=== PATIENT | male | born 1945 | race Caucasian/White ===

== ENCOUNTER 2017-06-21 19:57 | Observation (INO) | payer MEDICARE ==
[~2017-06-21] VITALS: Ht 177.8 cm; Wt 66.0 kg
[2017-06-21 20:02] VITALS: BP 159/76; PULSE 111; RESP 22; TEMP 97.9; O2SAT 95
--- NOTE | 2017-06-21 20:20 | PD ---
HPI Chief Complaint: Pain: Acute or Chronic Time Seen by Provider: 20:11 Travel History International Travel<30 days: No Contact w/Intl Traveler<30days: No Traveled to known affect area: No History of Present Illness HPI This 72-year-old male is complaining of pain in the posterior thoracic region. He is also having some pain in the sternal area. Pain started several hours ago and has been fairly constant. It started while he was driving here from [facility]. He has a history of asthma. . He does not smoke. He has been on prednisone in the past. He has no numbness tingling or paresthesias. He does have a history of irregular heartbeat. He does see a delinquency prevention social worker in [place] and had a lung biopsy several years ago. He has never smoked [facility] Social History Tobacco Use: No Allergies-Medications (Allergen,Severity, Reaction): Coded Allergies: No Known Allergies (Verified Allergy, Unknown, 06/21/17) Reported Meds & Prescriptions Reported Meds & Active Scripts Active Reported Latanoprost Opth Drops (Latanoprost) 0.005% Drops 1 Drop EACH EYE HS Refrigerate until opened. Fludrocortisone (Fludrocortisone Acetate) 0.1 Mg Tab 0.1 Mg PO DAILY Rabeprazole (Rabeprazole Sodium) 20 Mg Tab 20 Mg PO DAILY Montelukast (Montelukast Sodium) 10 Mg Tab 10 Mg PO HS Propafenone (Propafenone HCl) 150 Mg Tab 225 Mg PO Q8HR Theophylline ER 12 HR (Theophylline) 200 Mg Tab 200 Mg PO Q12H Ecotrin Low Strength (Aspirin) 81 Mg Tabdr 81 Mg PO DAILY Prednisone 10 Mg Tab 15 Mg PO DAILY Tamsulosin (Tamsulosin HCl) 0.4 Mg Cap 0.4 Mg PO HS Os-Marko Calcium + D3 (Calcium Carbonate-Cholecalciferol) 500-200 Mg-Unit Tab 1 Tab PO BID Dulera 120 Act Inh (Mometasone-Formoterol 120 Act Inh) 200-5 Mcg/Act Inh 2 Puff INH BID Asmanex 120 Act Twisthaler (Mometasone 120 Act Inh) 220 Mcg/Act Inh 1 Puff INH BID Review of Systems General / Constitutional: No: Fever, Chills HENT: No: Headaches, Vertigo Cardiovascular: Positive: Chest Pain or Discomfort, No: Palpitations Respiratory: Positive: Shortness of Breath, Wheezing, No: Cough Gastrointestinal: No: Vomiting, Diarrhea Genitourinary: No: Urgency, Frequency Musculoskeletal: No: Myalgias, Arthralgias Skin: No Rash, No Itching Neurologic: No: Weakness, Dizziness Psychiatric: No: Anxiety Hematologic/Lymphatic: No: Easy Bruising Physical Exam Narrative GENERAL: Thin male SKIN: Focused skin assessment warm/dry. HEAD: Atraumatic. Normocephalic. EYES: Pupils equal and round. No scleral icterus. No injection or drainage. ENT: No nasal bleeding or discharge. Mucous membranes pink and moist. NECK: Trachea midline. No JVD. CARDIOVASCULAR: Regular rate and rhythm. No murmur appreciated. RESPIRATORY: Diminished breath sounds bilaterally. Occasional wheeze GASTROINTESTINAL: Abdomen soft, non-tender, nondistended. Hepatic and splenic margins not palpable. MUSCULOSKELETAL: No obvious deformities. No clubbing. No cyanosis. No edema. NEUROLOGICAL: Awake and alert. No obvious cranial nerve deficits. Motor grossly within normal limits. Normal speech. Site of pain is the midportion of the thoracic spine. There is no focal tenderness. PSYCHIATRIC: Appropriate mood and affect; insight and judgment normal. Data Data Last Documented VS Vital Signs Date Time Temp Pulse Resp B/P Pulse Ox O2 Delivery O2 Flow Rate FiO2 06/21/17 22:34 95 18 122/75 96 Nasal Cannula 2 06/21/17 20:02 97.9 Orders Electrocardiogram (06/21/17 20:18) Complete Blood Count With Diff (06/21/17 20:18) Comprehensive Metabolic Panel (06/21/17 20:18) Troponin I (06/21/17 20:18) B-Type Natriuretic Peptide (06/21/17 20:18) Prothrombin Time / Inr (Pt) (06/21/17 20:18) Act Partial Throm Time (Ptt) (06/21/17 20:18) Urinalysis - C+S If Indicated (06/21/17 20:18) Chest, Single Ap (06/21/17 20:18) Ondansetron Inj (Zofran Inj) (06/21/17 20:30) Morphine Inj (Morphine Inj) (06/21/17 20:30) Ct Pulmonary Angiogram (06/21/17 20:49) Urine Culture (06/21/17 20:45) Iohexol 350 Inj (Omnipaque 350 Inj) (06/21/17 21:16) Admit Order (Ed Use Only) (06/21/17 21:41) Admit Order (Ed Use Only) (06/21/17 21:45) Activity Bed Rest With Brp (06/21/17 21:47) Vital Signs (Adult) Q4H (06/21/17 21:47) Cardiac Rhythm .As Directed (06/21/17 21:47) Notify Dr: Other .PRN (06/21/17 21:47) Notify Dr. Parameters (06/21/17 21:47) Resp Oxygen Nasal Cannula (06/21/17 ) Diet Npo (06/22/17 Breakfast) ^ Obtain (06/21/17 21:47) Sodium Chlor 0.9% 1000 Ml Inj (Ns 1000 M (06/21/17 21:47) Sodium Chloride 0.9% Flush (Ns Flush) (06/21/17 22:00) Sodium Chloride 0.9% Flush (Ns Flush) (06/22/17 09:00) Acetaminophen (Tylenol) (06/21/17 22:00) Morphine Inj (Morphine Inj) (06/21/17 22:00) Ondansetron Inj (Zofran Inj) (06/21/17 22:00) Aspirin (Aspirin) (06/22/17 09:00) Dressing Machine Operator / Telemetry RERE.Q8H (06/21/17 21:47) Montelukast (Singulair) (06/22/17 21:00) Prednisone (Deltasone) (06/22/17 09:00) Propafenone (Rythmol) (06/21/17 22:00) Acetaminophen (Tylenol) (06/21/17 22:00) Troponin I (06/21/17 23:24) Troponin I (06/22/17 02:24) Electrocardiogram (06/21/17 23:24) Electrocardiogram (06/22/17 02:24) Ckmb (Isoenzyme) Profile (06/22/17 02:24) Ckmb (Isoenzyme) Profile (06/21/17 23:24) Labs Laboratory Tests Test 06/21/17 06/21/17 20:24 20:45 White Blood Count 11.0 TH/MM3 Red Blood Count 4.62 MIL/MM3 Hemoglobin 13.8 GM/DL Hematocrit 40.7 % Mean Corpuscular Volume 88.0 FL Mean Corpuscular Hemoglobin 29.9 PG Mean Corpuscular Hemoglobin 34.0 % Concent Red Cell Distribution Width 14.1 % Platelet Count 351 TH/MM3 Mean Platelet Volume 8.1 FL Neutrophils (%) (Auto) 82.0 % Lymphocytes (%) (Auto) 8.3 % Monocytes (%) (Auto) 9.4 % Eosinophils (%) (Auto) 0.1 % Basophils (%) (Auto) 0.2 % Neutrophils # (Auto) 9.1 TH/MM3 Lymphocytes # (Auto) 0.9 TH/MM3 Monocytes # (Auto) 1.0 TH/MM3 Eosinophils # (Auto) 0.0 TH/MM3 Basophils # (Auto) 0.0 TH/MM3 CBC Comment AUTO DIFF Differential Total Cells 100 Counted Neutrophils % (Manual) 85 % Lymphocytes % 5 % Monocytes % 9 % Neutrophils # (Manual) 9.5 TH/MM3 Metamyelocytes 1 % Differential Comment FINAL DIFF MANUAL Platelet Estimate NORMAL Platelet Morphology Comment NORMAL Red Cell Morphology Comment NORMAL Prothrombin Time 10.8 SEC Prothromb Time International 1.0 RATIO Ratio Activated Partial 24.4 SEC Thromboplast Time Sodium Level 138 MEQ/L Potassium Level 4.0 MEQ/L Chloride Level 102 MEQ/L Carbon Dioxide Level 26.6 MEQ/L Anion Gap 9 MEQ/L Blood Urea Nitrogen 12 MG/DL Creatinine 1.00 MG/DL Estimat Glomerular Filtration 74 ML/MIN Rate Random Glucose 86 MG/DL Calcium Level 8.9 MG/DL Total Bilirubin 0.5 MG/DL Aspartate Amino Transf 12 U/L (AST/SGOT) Alanine Aminotransferase 11 U/L (ALT/SGPT) Alkaline Phosphatase 91 U/L Troponin I LESS THAN 0.02 NG/ML B-Type Natriuretic Peptide 31 PG/ML Total Protein 6.8 GM/DL Albumin 3.3 GM/DL Urine Color YELLOW Urine Turbidity CLOUDY Urine pH 7.0 Urine Specific [place] 1.020 Urine Protein NEG mg/dL Urine Glucose (UA) NEG mg/dL Urine Ketones 15 mg/dL Urine Occult Blood TRACE Urine Nitrite NEG Urine Bilirubin NEG Urine Leukocyte Esterase SMALL Urine RBC 0-3 /hpf Urine WBC 9-14 /hpf Urine Squamous Epithelial 0-5 /hpf Cells Urine Bacteria MANY /hpf Microscopic Urinalysis Comment CULTURE INDICATED MDM Medical Decision Making Medical Screen Exam Complete: Yes Emergency Medical Condition: Yes Medical Record Reviewed: Yes Differential Diagnosis Differential includes coronary artery disease, musculoskeletal pain, PE Narrative Course EKG shows sinus rhythm. Troponin is normal. He takes aspirin daily. He was given morphine for pain. Results. I have done a CT scan of the chest. There is no evidence of pulmonary embolus. He is noted to have a lesion in the lung for which malignancy cannot be ruled out. I think the patient needs admission to chest pain center for serial EKG and enzymes as he did have this fairly sudden precordial and back pain. Questionable malignancy can be addressed by his delinquency prevention social worker in [place] Diagnosis Primary Impression: Chest pain Admitting Information Admitting Physician Requests: Observation Georges Oconnor MD Jun 21, 2017 20:20
[2017-06-21] MEDS ORDERED: ONDANSETRON HCL 4 MG/2 ML VIAL IV PUSH ONE (20:30)
[2017-06-21] MEDS ORDERED: MORPHINE SULFATE 4 MG/ML INJ IV PUSH ONE (20:30)
[2017-06-21 20:32] LABS: AUTOMATED NEUTROPHIL # 9.1 TH/MM3 (1.8-7.7); BASOPHIL % 0.2 % (0.0-2.0); EOSINOPHIL % 0.1 % (0.0-4.0); HEMATOCRIT 40.7 % (39.0-51.0); LYMPH % 8.3 % (9.0-44.0); LYMPHOCYTE # 0.9 TH/MM3 (1.0-4.8); MEAN CORPUSCULAR HEMOGLOBIN 29.9 PG (27.0-34.0); MONO % 9.4 % (0.0-8.0); PLATELET COUNT 351 TH/MM3 (150-450); RED BLOOD COUNT 4.62 MIL/MM3 (4.50-5.90); RED CELL DISTRIBUTION WIDTH 14.1 % (11.6-17.2)
[2017-06-21] MEDS ORDERED: FLUD.1 PO (20:35)
[2017-06-21] MEDS ORDERED: ASPI-147 PO (20:35)
[2017-06-21] MEDS ORDERED: PROP150T PO (20:35)
[2017-06-21] MEDS ORDERED: MONT10TA4 PO (20:35)
[2017-06-21] MEDS ORDERED: DULE200A INH (20:35)
[2017-06-21] MEDS ORDERED: THEO200T9 PO (20:35)
[2017-06-21] MEDS ORDERED: OS-CTAB3 PO (20:35)
[2017-06-21] MEDS ORDERED: PRED10 PO (20:35)
[2017-06-21] MEDS ORDERED: LATA0.002 EACH EYE (20:35)
[2017-06-21] MEDS ORDERED: ASMA220A INH (20:35)
[2017-06-21] MEDS ORDERED: TAMS0.4C4 PO (20:35)
[2017-06-21] MEDS ORDERED: RABE1TAB PO (20:35)
[2017-06-21 20:39] LABS: HEMO FLAGS AUTO DIFF
[2017-06-21 20:41] VITALS: BP 140/74; PULSE 95; RESP 18; O2SAT 98
[2017-06-21 20:41] LABS: CHLORIDE 102 MEQ/L (98-107); SODIUM (NA) 138 MEQ/L (136-145)
[2017-06-21 20:45] LABS: ANION GAP 9 MEQ/L (5-15); BICARBONATE 26.6 MEQ/L (21.0-32.0); BLOOD UREA NITROGEN 12 MG/DL (7-18)
[2017-06-21 20:47] LABS: APTT (PATIENT) 24.4 SEC (24.3-30.1); PROTHROMBIN TIME - PATIENT 10.8 SEC (9.8-11.6)
[2017-06-21 20:48] LABS: ALT (GPT) 11 U/L (12-78); AST (GOT) 12 U/L (15-37); GLOMERULAR FILTRATION RATE 74 ML/MIN (>89)
[2017-06-21 20:49] LABS: TOTAL BILIRUBIN ADULT 0.5 MG/DL (0.2-1.0)
[2017-06-21 20:51] LABS: ALKALINE PHOSPHATASE 91 U/L (45-117)
[2017-06-21 20:57] LABS: BLOOD, URINE TRACE (NEG); GLUCOSE,URINE NEG (NEG); KETONE, URINE 15 mg/dL (NEG); NITRITE,URINE NEG (NEG)
[2017-06-21 21:02] LABS: URINE COLOR YELLOW (YELLW/STRAW)
[2017-06-21 21:03] LABS: BACTERIA, URINE MANY /hpf; COMMENT (UR) CULTURE INDICATED; CULTURE IF INDICATED CULTURE INDICATED; RBC, URINE 0-3 /hpf (0-3); SQUAMOUS EPITHELIAL CELL URINE 0-5 /hpf (0-5)
--- NOTE | 2017-06-21 21:07 | RADRPT ---
EXAM DATE/TIME: 06/21/2017 20:23 [facility] COMPARISON: No previous studies available for comparison. INDICATIONS : Chest pain. MEDICAL HISTORY : None. SURGICAL HISTORY : None. ENCOUNTER: Initial ACUITY: 1 day PAIN SCORE: 7/10 LOCATION: Bilateral chest FINDINGS: No infiltrate, effusion or pneumothorax. Lung bases appear mildly scarred or atelectatic. Heart size normal. There are old right rib fractures. Humeral head abuts the undersurface of the acromion on the right, typical of a chronic full-thickness rotator cuff tear. CONCLUSION: 1. Trace bibasilar atelectasis and/or scarring. No infiltrates seen. 2. Old right rib fractures and suspected chronic full-thickness right rotator cuff tear. Jose Lockhart MD on June 21, 2017 at 21:04 Board Certified Radiologist. This report was verified electronically.
[2017-06-21] MEDS ORDERED: IOHEXOL 350 MG/ML 10 ML VIAL (for RAD DIAG) IV ONE (21:16)
--- NOTE | 2017-06-21 21:32 | RADRPT ---
EXAM DATE/TIME: 06/21/2017 21:04 [facility] COMPARISON: No previous studies available for comparison. INDICATIONS : Left side chest and back pain today. IV CONTRAST: 73 cc Omnipaque 350 (iohexol) IV RADIATION DOSE: 9.16 CTDIvol (mGy) MEDICAL HISTORY : Cardiovascular disease. SURGICAL HISTORY : None. ENCOUNTER: Initial ACUITY: 1 day PAIN SCALE: 5/10 LOCATION: Left chest TECHNIQUE: Volumetric scanning of the chest was performed using a pulmonary embolism protocol MIP images were re constructed. Using automated exposure control and adjustment of the mA and/or kV according to patien t size, radiation dose was kept as low as reasonably achievable to obtain optimal diagnostic quality images. DICOM format image data is available electronically for review and comparison. Follow-up recommendations for detected pulmonary nodules are based at a minimum on nodule size and pa tient risk factors according to Fleischner Society Guidelines. FINDINGS: PULMONARY ARTERIES: No filling defects are seen in the pulmonary arteries through the segmental level. LUNGS: There is mild bibasilar atelectasis. Areas of mildly masslike scarring or atelectasis/infiltrate seen in the right upper lobe, one posteriorly measuring approximately 16 x 43 mm in size and another more anteriorly and apically, 11 x 25 mm in size. Malignancy not excludable, especially the larger area. PLEURAE: There is no pleural thickening or pleural effusion. MEDIASTINUM: No lymphadenopathy. Heart size within normal limits. There is left and right sided coronary artery ca lcification, especially left main and proximal left anterior descending. No pericardial effusion. CT appearance of the thoracic aorta within normal limits. MUSCULOSKELETAL: Within normal limits for patient age. MISCELLANEOUS: The visualized upper abdominal organs demonstrate no acute abnormality. CONCLUSION: 1. No pulmonary embolus. 2. Masslike opacity posteriorly of the right upper lobe measuring 16 x 43 mm in size and malignancy i s not excludable. Outpatient PET CT recommended. 3. An additional mildly masslike opacity of the right upper lobe seen at the apex is most likely scar ring. 4. Fairly typical appearing atelectasis and/or scarring of the bases. 5. Coronary artery calcification. Jose Lockhart MD on June 21, 2017 at 21:26 Board Certified Radiologist. This report was verified electronically.
[2017-06-21 21:45] VITALS: BP 117/74; PULSE 95; RESP 17; O2SAT 96
[2017-06-21 21:46] LABS: METAMYELOCYTES 1 % (0-1); NEUTROPHIL # MANUAL DIFF 9.5 TH/MM3 (1.8-7.7); PLATELET ESTIMATE SMEAR NORMAL (NORMAL); PLATELET MORPHOLOGY NORMAL (NORMAL); POLYS (SEG NEUTROPHILS) 85 % (16-70); SCAN/DIFF FINAL DIFF MANUAL; WBC DIFF SAMPLE 100
[2017-06-21] MEDS ORDERED: MORPHINE SULFATE 4 MG/ML INJ IV PRN (22:00)
[2017-06-21] MEDS ORDERED: ACETAMINOPHEN 325 MG TAB PO PRN (22:00)
[2017-06-21] MEDS ORDERED: ONDANSETRON HCL 4 MG/2 ML VIAL IV PRN (22:00)
[2017-06-21] MEDS ORDERED: ACETAMINOPHEN 500 MG CPLT PO PRN (22:00)
[2017-06-21] MEDS ORDERED: SODIUM CHLORIDE 0.9% FLUSH 10 ML FLUSH IV FLUSH PRN (22:00)
[2017-06-21] MEDS: PROPAFENONE HCL 150 MG TAB PO SCH ×2 (22:23→22:25)
[2017-06-21] MEDS: SODIUM CHLOR 0.9% 1000 ML INJ 1,000 ML IV SCH (22:23)
[2017-06-21 22:34] VITALS: BP 122/75; PULSE 95; RESP 18; O2SAT 96
[2017-06-21] MEDS ORDERED: MONTELUKAST SODIUM 10 MG TAB PO SCH (23:15)
[2017-06-21] MEDS ORDERED: TAMSULOSIN HCL 0.4 MG CAP PO SCH (23:15)
[2017-06-21] MEDS ORDERED: LATANOPROST 0.005% OPHT SOLN 2.5 ML BTL EACH EYE SCH (23:15)
[2017-06-21] MEDS ORDERED: PILL SPLITTER OTHER PRN (23:30)
[2017-06-21] MEDS ORDERED: PROPAFENONE HCL 150 MG TAB PO SCH (23:30)
[2017-06-21] MEDS: MOMETASONE INH SCH (23:51)
[2017-06-21] MEDS: DULERA INH SCH (23:52)
[2017-06-21] MEDS: CALCIUM/VITAMIN D 250 MG/125 U TAB PO SCH (23:53)
[2017-06-21 23:55] VITALS: BP 115/69; PULSE 95; RESP 18; TEMP 98.5; O2SAT 98
[2017-06-22 00:36] LABS: CREATINE KINASE 82 U/L (39-308)
[2017-06-22 01:24] VITALS: PULSE 85
[2017-06-22 01:50] VITALS: BP 152/86; PULSE 73; RESP 16; TEMP 98.1; O2SAT 91
[2017-06-22 02:20] VITALS: O2SAT 95
[2017-06-22 03:14] LABS: CREATINE KINASE 17 U/L (39-308)
[2017-06-22 04:44] VITALS: BP 110/71; PULSE 88; RESP 18; TEMP 98.4; O2SAT 93
[2017-06-22] MEDS: PROPAFENONE HCL 150 MG TAB PO SCH ×2 (05:35→14:00)
[2017-06-22 08:00] VITALS: BP 113/70; PULSE 99; RESP 18; TEMP 98.6; O2SAT 92; O2SAT 93
[2017-06-22] MEDS: SODIUM CHLOR 0.9% 1000 ML INJ 1,000 ML IV SCH (09:00)
[2017-06-22] MEDS ORDERED: predniSONE 10 MG TAB PO SCH (09:00)
[2017-06-22] MEDS ORDERED: ASPIRIN 325 MG TAB PO SCH (09:00)
[2017-06-22] MEDS: CALCIUM/VITAMIN D 250 MG/125 U TAB PO SCH (09:00)
[2017-06-22] MEDS ORDERED: SODIUM CHLORIDE 0.9% FLUSH 10 ML FLUSH IV FLUSH SCH (09:00)
[2017-06-22] MEDS: DULERA INH SCH (09:01)
[2017-06-22] MEDS: MOMETASONE INH SCH (09:01)
--- NOTE | 2017-06-22 09:26 | HHI.HP ---
[facility] Primary [facility] Phys[facility] Non-Staff Admission Diagnosis CHEST PAIN Diagnoses: (1) Chest pain Diagnosis: Principal (2) Lung mass Diagnosis: Secondary (3) Asthma Diagnosis: Secondary Chief Complaint: Chest pain Travel History International Travel<30 Days: No Contact w/Intl Traveler <30 Da: No Traveled to Known Affected Are: No History of Present Illness Written by Balwinder Macias, acting as scribe for Dr. Andre on 06/22/17 at 09: 19. 72-year-old male with known history of irregular heartbeat, asthma, benign prostatic hypertrophy who presented to the hospital because of chest discomfort. Patient does live in [facility] [place] and he was driving down here in order to visit his son for the weekend. [place] down yesterday morning he developed a midsternal chest discomfort that he states was intermittent and had only a couple of times during the drive which was an 8/10 on a pain scale lasting for approximately 1 minute at a time. The pain did radiate into his back. He denied any nausea, vomiting, diaphoresis, shortness of breath, dyspnea , lightheadedness, dizziness. Patient came to emergency department for evaluation and had cardiac enzymes performed which were unremarkable. CT scan of the chest was done which did not indicate any pulmonary emboli, however did indicate a 1.6 x 4.3 cm right upper lobe mass and malignancy is not excluded. ER physician did speak with the patient who wants to have the mass workup done by his administration assistant up in [place]. This was confirmed when speaking with the patient. Patient indicates that he has had lung biopsies done before, however he does not know if they were done at this particular mass. The patient does have a wood window and door craftsman up in [place] which monitors his irregular heart rate. Patient states it just a EKG done on Saturday. His last nuclear stress test was done years ago. At the present time the patient is asymptomatic. It was recommended by the ER physician that the patient be observed in the chest pain center for further evaluation. Review of Systems Cardiovascular: COMPLAINS OF: Chest pain Except as stated in HPI: all other systems reviewed are Neg Past Family Social History Past Medical History Irregular heart rate Asthma Benign prostatic hypertrophy Past Surgical History Upper and lower endoscopies which were negative Lung biopsy Cataract surgery Reported Medications Reported Meds & Active Scripts Active Reported Latanoprost Opth Drops (Latanoprost) 0.005% Drops 1 Drop EACH EYE HS Refrigerate until opened. Fludrocortisone (Fludrocortisone Acetate) 0.1 Mg Tab 0.1 Mg PO DAILY Rabeprazole (Rabeprazole Sodium) 20 Mg Tab 20 Mg PO DAILY Montelukast (Montelukast Sodium) 10 Mg Tab 10 Mg PO HS Propafenone (Propafenone HCl) 150 Mg Tab 225 Mg PO Q8HR Theophylline ER 12 HR (Theophylline) 200 Mg Tab 200 Mg PO Q12H Ecotrin Low Strength (Aspirin) 81 Mg Tabdr 81 Mg PO DAILY Prednisone 10 Mg Tab 15 Mg PO DAILY Tamsulosin (Tamsulosin HCl) 0.4 Mg Cap 0.4 Mg PO HS Os-Marko Calcium + D3 (Calcium Carbonate-Cholecalciferol) 500-200 Mg-Unit Tab 1 Tab PO BID Dulera 120 Act Inh (Mometasone-Formoterol 120 Act Inh) 200-5 Mcg/Act Inh 2 Puff INH BID Asmanex 120 Act Twisthaler (Mometasone 120 Act Inh) 220 Mcg/Act Inh 1 Puff INH BID Allergies: Coded Allergies: No Known Allergies (Verified Allergy, Unknown, 06/21/17) Family History Reviewed is significant for mother at age 68 from heart disease, father at 71 from cancer, however he does not know which kind. Social History Patient denies any tobacco, alcohol or illicit drugs Physical Exam Vital Signs Vital Signs Date Time Temp Pulse Resp B/P Pulse Ox O2 Delivery O2 Flow Rate FiO2 06/22/17 08:00 93 21 06/22/17 08:00 98.6 99 18 113/70 92 06/22/17 04:44 98.4 88 18 110/71 93 06/22/17 02:20 95 21 06/22/17 01:50 98.1 73 16 152/86 91 06/22/17 01:24 85 06/21/17 23:55 98.5 95 18 115/69 98 Nasal Cannula 06/21/17 22:34 95 18 122/75 96 Nasal Cannula 2 06/21/17 21:45 95 17 117/74 96 Nasal Cannula 2 06/21/17 20:41 95 18 140/74 98 Room Air 06/21/17 20:02 97.9 111 22 159/76 95 Physical Exam GENERAL: Well-developed, well-nourished, in no acute distress. alert and orientated HEENT: Head is normocephalic without any lesions or masses noted. Facial features are symmetric. Eyes: Pupils equal round reactive to light. Extraocular muscles are intact. Conjunctivae were clear. Oropharyngeal: Pharynx without any erythema edema. Tongue is midline without deviation. Buccal mucosa is moist without any masses or lesions NECK: Supple without any masses. Trachea midline no deviation. No JVD, no bruits are appreciated CARDIAC: Regular rhythm, regular rate. S1/S2 are heard. 1/6 ejection murmur, no gallops or rubs. LUNGS: Clear to auscultation bilaterally. No wheeze, rhonchi or rales. No use of accessory muscles on inspiration or expiration. ABDOMEN: Soft, nontender. Nondistended. Bowel sounds heard in all 4 quadrants. No organomegaly or masses. Negative rebound, negative guarding EXTREMITIES: No edema, pulses are equal bilaterally. No cyanosis or clubbing NEUROLOGY: Mood and affect appear appropriate. Cranial nerves II through XII grossly intact. Muscle strength 5/5 in upper and lower extremities bilaterally. Deep tendon reflexes are 2+ in upper and lower extremities bilaterally. Laboratory Laboratory Tests Test 06/21/17 06/21/17 06/22/17 06/22/17 20:24 20:45 00:05 02:40 White Blood Count 11.0 Red Blood Count 4.62 Hemoglobin 13.8 Hematocrit 40.7 Mean Corpuscular Volume 88.0 Mean Corpuscular Hemoglobin 29.9 Mean Corpuscular Hemoglobin 34.0 Concent Red Cell Distribution Width 14.1 Platelet Count 351 Mean Platelet Volume 8.1 Neutrophils (%) (Auto) 82.0 Lymphocytes (%) (Auto) 8.3 Monocytes (%) (Auto) 9.4 Eosinophils (%) (Auto) 0.1 Basophils (%) (Auto) 0.2 Neutrophils # (Auto) 9.1 Lymphocytes # (Auto) 0.9 Monocytes # (Auto) 1.0 Eosinophils # (Auto) 0.0 Basophils # (Auto) 0.0 CBC Comment AUTO DIFF Differential Total Cells 100 Counted Neutrophils % (Manual) 85 Lymphocytes % 5 Monocytes % 9 Neutrophils # (Manual) 9.5 Metamyelocytes 1 Differential Comment FINAL DIFF MANUAL Platelet Estimate NORMAL Platelet Morphology Comment NORMAL Red Cell Morphology Comment NORMAL Prothrombin Time 10.8 Prothromb Time International 1.0 Ratio Activated Partial 24.4 Thromboplast Time Sodium Level 138 Potassium Level 4.0 Chloride Level 102 Carbon Dioxide Level 26.6 Anion Gap 9 Blood Urea Nitrogen 12 Creatinine 1.00 Estimat Glomerular Filtration 74 Rate Random Glucose 86 Calcium Level 8.9 Total Bilirubin 0.5 Aspartate Amino Transf 12 (AST/SGOT) Alanine Aminotransferase 11 (ALT/SGPT) Alkaline Phosphatase 91 Troponin I LESS THAN 0.02 LESS THAN 0.02 LESS THAN 0.02 B-Type Natriuretic Peptide 31 Total Protein 6.8 Albumin 3.3 Urine Color YELLOW Urine Turbidity CLOUDY Urine pH 7.0 Urine Specific [place] 1.020 Urine Protein NEG Urine Glucose (UA) NEG Urine Ketones 15 Urine Occult Blood TRACE Urine Nitrite NEG Urine Bilirubin NEG Urine Leukocyte Esterase SMALL Urine RBC 0-3 Urine WBC 9-14 Urine Squamous Epithelial 0-5 Cells Urine Bacteria MANY Microscopic Urinalysis Comment CULTURE INDICATED Total Creatine Kinase 82 17 Date/Time Procedure Status Source Growth 06/21/17 20:45 Urine Culture Received Urine Clean Catch Pending Result Diagram: 06/21/17202306/21/17[address] Angiography 06/21/172048 Signed Impressions: Service Date/Time: Wednesday, June 21, 2017 21:04 - CONCLUSION: 1. No pulmonary embolus. 2. Masslike opacity posteriorly of the right upper lobe measuring 16 x 43 mm in size and malignancy is not excludable. Outpatient PET CT recommended. 3. An additional mildly masslike opacity of the right upper lobe seen at the apex is most likely scarring. 4. Fairly typical appearing atelectasis and/or scarring of the bases. 5. Coronary artery calcification. Jose Lockhart MD Chest X-Ray 06/21/172017 Signed Impressions: Service Date/Time: Wednesday, June 21, 2017 20:23 - CONCLUSION: 1. Trace bibasilar atelectasis and/or scarring. No infiltrates seen. 2. Old right rib fractures and suspected chronic full-thickness right rotator cuff tear. Jose Lockhart MD Assessment and Plan Assessment and Plan Chest pain, atypical Patient with increased risk factors to include age, family history of heart disease Patient had been ruled out for acute coronary event with serial cardiac enzymes which are negative, serial EKGs without any changes Pursue nuclear stress test rule out any underlying ischemia Patient continue on aspirin and nitroglycerin as needed Irregular heart rate, patient cannot remember exactly the name of his condition is Antiarrhythmic medication has been continued Asthma Home medications continued DVT prevention Low risk, early ambulation Discharge disposition Discharge home in stable condition if stress test is negative Activity: Ad joel. Diet: Healthy heart diet Medications per medication reconciliation Follow-up with primary medical doctor in one week, administration assistant and wood window and door craftsman when he returns back to [facility] [place], Medical Decision Making Impression and Plan This note was transcribed by josie macias. I, Dr. Lucero Andre personally performed the history, physical exam, and medical decision making; and confirmed the accuracy of the information in the transcribed note. Authenticated by Dr. Lucero Andre on 06/22/17 at 09:55. lung mass is known to the patient and he would not like any further workup here in the hospital. He would like to pursue further follow-up with his primary doctors in [facility] [place]. Balwinder Macias Jun 22, 2017 09:26 Lucero Andre MD Jun 22, 2017 09:56
[2017-06-22] MEDS ORDERED: REGADENOSON INJ 0.4 MG/5 ML SYR IV ONE (11:40)
[2017-06-22 12:00] VITALS: BP 108/76; PULSE 90; RESP 17; TEMP 98.2; O2SAT 93
--- NOTE | 2017-06-22 13:27 | RADRPT ---
EXAM DATE/TIME: 06/22/2017 11:40 [facility] COMPARISON: No previous studies available for comparison. INDICATIONS : Substernal chest pain. Angina. DOSE: 27.1 mCi Tc99m Myoview at stress. 8.8 mCi Tc99m Myoview at rest. 0.4 mg Lexiscan STRESS SYMPTOMS: None noted. EJECTION FRACTION: 52% MEDICAL HISTORY : Asthma. SURGICAL HISTORY : None. ENCOUNTER: Initial ACUITY: 1 day PAIN SCALE: 8/10 LOCATION: Substernal chest TECHNIQUE: The patient underwent pharmacologic stress with infusion of prescribed dose. Continuous ECG tracing was monitored during stress. Gated SPECT imaging was performed after stress and conventional SPECT i maging was performed at rest. The examination was performed on a SPECT/CT scanner, both attenuation and non-corrected datasets were reviewed. FINDINGS: DISTRIBUTION: The maximum perfused segment at stress is in the anterolateral wall. PERFUSION STUDY: The pattern of perfusion at stress is within normal limits. GATED STUDY: There is intact wall motion and thickening without hypokinetic or dyskinetic segments. CONCLUSION: 1. No reversible perfusion defects to suggest ischemia. 2. Ejection fraction slightly depressed at 52%. RISK CATEGORY: Intermediate (1-3% Annual Mortality Rate) Sean Brasher MD on June 22, 2017 at 13:23 Board Certified Radiologist. This report was verified electronically.
--- NOTE | 2017-06-22 13:30 | HHI.DCPOC ---
Discharge Care Plan Diagnosis: (1) Chest pain Goals to Promote Your Health * To prevent worsening of your condition and complications * To maintain your health at the optimal level Directions to Meet Your Goals Take your medications as prescribed Follow your dietary instruction Follow activity as directed Keep your appointments as scheduled Take your immunizations and boosters as scheduled If your symptoms worsen call your PCP, if no PCP go to Urgent Care Center or Emergency Room Smoking is Dangerous to Your Health. Avoid second hand smoke Call the 24-hour hour crisis hotline for domestic abuse at Balwinder Fields Jun 22, 2017 13:30
--- NOTE | 2017-06-22 15:42 | EKG ---
Date Performed: 06/21/2017 Time Performed: 21:56:06 PTAGE: 72 years EKG: BORDERLINE ATRIAL ABNORMALITY SMALL INFERIOR Q WAVES OF UNDETERMINED SIGNIFICANCE Since pre vious tracing, no significant change noted ABNORMAL ECG PREVIOUS TRACING : 06/21/2017 20.14 DOCTOR: Иван Solo Interpretating Date/Time 06/22/2017 15:42:19
--- NOTE | 2017-06-22 15:42 | EKG ---
Date Performed: 06/21/2017 Time Performed: 20:14:09 PTAGE: 72 years EKG: BORDERLINE ATRIAL ABNORMALITY SMALL INFERIOR Q WAVES OF UNDETERMINED SIGNIFICANCE BORDERLIN E ECG NO PREVIOUS TRACING DOCTOR: Иван Solo Interpretating Date/Time 06/22/2017 15:41:35
[2017-06-22] MEDS ORDERED: MONTELUKAST SODIUM 10 MG TAB PO SCH (21:00)
--- NOTE | 2017-06-23 16:25 | TR ---
Date Performed: 06/22/2017 Time Performed: 12:09:49 DOCTOR: Иван Solo DRUG LIST: CLINICAL HISTORY: REASON FOR TEST: Chest pain REASON FOR ENDING: OBSERVATION: CONCLUSION: Lexiscan stress test was performed under standard four minute protocol. Radionuclid e was injected one minute prior to ending the test. No electrocardiographic abormalities were present to suggest ischemia. Nuclear imaging and interpretation are pending. COMMENTS:
--- NOTE | 2017-06-23 16:35 | EKG ---
Date Performed: 06/22/2017 Time Performed: 02:24:53 PTAGE: 72 years EKG: Sinus rhythm POSSIBLE LEFT ATRIAL ENLARGEMENT BORDERLINE ECG PREVIOUS TRACING : 06/22/2017 00.25 Since previous tracing, no significant change noted DOCTOR: Иван Solo Interpretating Date/Time 06/23/2017 16:34:56
--- NOTE | 2017-06-24 07:36 | EKG ---
Date Performed: 06/22/2017 Time Performed: 00:25:42 PTAGE: 72 years EKG: Sinus rhythm POSSIBLE LEFT ATRIAL ENLARGEMENT BORDERLINE ECG PREVIOUS TRACING : 06/21/2017 21.56 Since previous tracing, no significant change noted DOCTOR: Иван Solo Interpretating Date/Time 06/24/2017 07:34:21
== END 2017-06-22 15:11 | disposition home or self-care (01) ==
LOC: PHED 19:57 → PHEDA 21:44 → PH3A 06-22 00:33
PROVIDERS: ADMIT Hospitalist; ATTEND Hospitalist
DX: R07.89 Other chest pain (principal); J45.909 Unspecified asthma, uncomplicated; I25.10 Atherosclerotic heart disease of native coronary artery without angina pectoris; I49.9 Cardiac arrhythmia, unspecified; R91.8 Other nonspecific abnormal finding of lung field; B96.89 Other specified bacterial agents as the cause of diseases classified elsewhere; N40.0 Benign prostatic hyperplasia without lower urinary tract symptoms; Z82.49 Family history of ischemic heart disease and other diseases of the circulatory system; R94.31 Abnormal electrocardiogram [ECG] [EKG]; Z79.82 Long term (current) use of aspirin; Z79.899 Other long term (current) drug therapy
CPT/HCPCS: 71010; 71275; 78452; 80053; 81001; 82550; 83880; 84484; 85007; 85027; 85610; 85730; 87077; 87086; 87186; 93005; 93017; 96361; 96374; 96375; 99285; A9502; G0378; J2270; J2405; J2785; J7030; J7512; Q9967

== ENCOUNTER 2017-06-23 15:42 | Inpatient (IN) | payer MEDICARE ==
[2017-06-23] VITALS (8 sets, daily range): BP systolic 115–149; BP diastolic 61–71; PULSE 82–101; RESP 18–24; TEMP 98.8–100.7; O2SAT 95–97
[~2017-06-23] VITALS: Ht 177.8 cm; Wt 67.4 kg
[~2017-06-23 15:42] MED LIST: ASMA220A INH; ASPI-147 PO; DULE200A INH; FLUD.1 PO; LATA0.002 EACH EYE; MONT10TA4 PO; OS-CTAB3 PO; PRED10 PO; PROP150T PO; RABE1TAB PO; TAMS0.4C4 PO; THEO200T9 PO
[2017-06-23] MEDS ORDERED: PIPERACIL-TAZO 4.5 GM PREMIX 100 ML IV ONE (16:15)
[2017-06-23] MEDS ORDERED: SODIUM CHLOR 0.9% 1000 ML INJ 1,000 ML IV ONE ×2 (16:15)
[2017-06-23] MEDS ORDERED: ONDANSETRON HCL 4 MG/2 ML VIAL IV ONE (16:15)
[2017-06-23] MEDS ORDERED: VANCOMYCIN INJ 1,000 MG in SODIUM CHLOR 0.9% 250 ML INJ 250 ML IV ONE (16:15)
--- NOTE | 2017-06-23 16:22 | PD ---
HPI Chief Complaint: General Weakness Time Seen by Provider: 16:00 Travel History International Travel<30 days: No Contact w/Intl Traveler<30days: No Traveled to known affect area: No History of Present Illness HPI Patient is a 72-year-old male who presents emergency department for second evaluation of generalized weakness as week. Patient arrives via [facility] and states he is just not feeling well. He does endorse a cough for the past few days. They're visiting from [place]. Patient is febrile and tachycardic on arrival and certainly is 2 out of 3 Sirs criteria and appears quite ill. Review the patient's records shows that he was here a few days ago with chest pain was admitted to the chest pain center and had nuclear stress test as well as CT PE protocol which was negative. He did have note of a right apical mass at that time. Patient denies any sputum production. He does endorse some decreased urine output. Endorses some mild nausea without vomiting. His arrives and states the patient was not feeling well on the drive down from [place] they're in town visiting her son. PFSH Past Medical History Asthma: Yes Blood Disorders: No Heart Rhythm Problems: Yes Cancer: No Cardiac Catheterization: No High Cholesterol: No Chest Pain: No (DENIES HX OF) Congestive Heart Failure: No COPD: No Diabetes: No Endocrine: No Genitourinary: No Immune Disorder: No Musculoskeletal: No Neurologic: No Psychiatric: No Reproductive: No Respiratory: Yes Sleep Apnea: No Past Surgical History Coronary Artery Bypass Graft: No Eye Surgery: Yes (cataracts) Other Surgery: No Social History Alcohol Use: No Tobacco Use: No Substance Use: No Allergies-Medications (Allergen,Severity, Reaction): Coded Allergies: No Known Allergies (Verified Allergy, Unknown, 06/21/17) Reported Meds & Prescriptions Reported Meds & Active Scripts Active Reported Latanoprost Opth Drops (Latanoprost) 0.005% Drops 1 Drop EACH EYE HS Refrigerate until opened. Fludrocortisone (Fludrocortisone Acetate) 0.1 Mg Tab 0.1 Mg PO DAILY Rabeprazole (Rabeprazole Sodium) 20 Mg Tab 20 Mg PO HS Montelukast (Montelukast Sodium) 10 Mg Tab 10 Mg PO HS Propafenone (Propafenone HCl) 150 Mg Tab 225 Mg PO Q8HR Theophylline ER 12 HR (Theophylline) 200 Mg Tab 200 Mg PO Q12H Ecotrin Low Strength (Aspirin) 81 Mg Tabdr 81 Mg PO DAILY Prednisone 10 Mg Tab 15 Mg PO DAILY Tamsulosin (Tamsulosin HCl) 0.4 Mg Cap 0.4 Mg PO BID Os-Marko Calcium + D3 (Calcium Carbonate-Cholecalciferol) 500-200 Mg-Unit Tab 1 Tab PO BID Dulera 120 Act Inh (Mometasone-Formoterol 120 Act Inh) 200-5 Mcg/Act Inh 2 Puff INH BID Asmanex 120 Act Twisthaler (Mometasone 120 Act Inh) 220 Mcg/Act Inh 1 Puff INH BID Review of Systems Except as stated in HPI: all other systems reviewed are Neg Physical Exam Narrative GENERAL: Well-developed well-nourished, ill-appearing male. SKIN: Focused skin assessment warm/dry. HEAD: Atraumatic. Normocephalic. EYES: Pupils equal and round. No scleral icterus. No injection or drainage. ENT: No nasal bleeding or discharge. Mucous membranes pink and dry. NECK: Trachea midline. No JVD. CARDIOVASCULAR: Regular rhythm with tachycardia. No murmur appreciated. RESPIRATORY: Tachypnea.. Clear to auscultation. Breath sounds equal bilaterally. GASTROINTESTINAL: Abdomen soft, non-tender, nondistended. Hepatic and splenic margins not palpable. MUSCULOSKELETAL: No obvious deformities. No clubbing. No cyanosis. No edema. NEUROLOGICAL: Awake and alert. No obvious cranial nerve deficits. Motor grossly within normal limits. Normal speech. PSYCHIATRIC: Appropriate mood and affect; insight and judgment normal. Data Data Last Documented VS Vital Signs Date Time Temp Pulse Resp B/P (MAP) Pulse Ox O2 Delivery O2 Flow Rate FiO2 06/23/17 16:20 95 Nasal Cannula 06/23/17 16:02 100.7 101 24 Orders Orders Complete Blood Count With Diff (06/23/17 16:08) Comprehensive Metabolic Panel (06/23/17 16:08) Prothrombin Time / Inr (Pt) (06/23/17 16:08) Act Partial Throm Time (Ptt) (06/23/17 16:08) Lactic Acid Sepsis Protocol (06/23/17 16:08) Magnesium (Mg) (06/23/17 16:08) Phosphorus (Po4) (06/23/17 16:08) Lipase (06/23/17 16:08) Ckmb (Isoenzyme) Profile (06/23/17 16:08) Troponin I (06/23/17 16:08) Urinalysis - C+S If Indicated (06/23/17 16:08) Blood Culture (06/23/17 16:08) Chest, Single Ap (06/23/17 16:08) Ecg Monitoring (06/23/17 16:08) Iv Access Insert/Monitor (06/23/17 16:08) Oximetry (06/23/17 16:08) Oxygen Administration (06/23/17 16:08) Ondansetron Inj (Zofran Inj) (06/23/17 16:15) Sodium Chlor 0.9% 1000 Ml Inj (Ns 1000 M (06/23/17 16:15) Sodium Chlor 0.9% 1000 Ml Inj (Ns 1000 M (06/23/17 16:15) Vancomycin Inj (Vancomycin Inj) (06/23/17 16:15) Piperacil-Tazo 4.5 Gm Premix (Zosyn 4.5 (06/23/17 16:15) Urine Culture (06/23/17 16:30) CKMB (06/23/17 16:15) CKMB% (06/23/17 16:15) Add Patient To Providers List (06/23/17 ) Admit Order (Ed Use Only) (06/23/17 ) Admit To Inpatient (06/23/17 ) Vital Signs (Adult) RERE.Q4H (06/23/17 19:28) Activity Oob With Assistance (06/23/17 19:28) Acetaldehyde Converter Operator / Telemetry RERE.Q8H (06/23/17 19:28) Intake + Output 06,14,22 (06/23/17 19:28) Diet Heart Healthy (06/24/17 Breakfast) Resp Oxygen Reji C Titrat 1-4 L (06/23/17 ) Sodium Chloride 0.9% Flush (Ns Flush) (06/23/17 19:30) Sodium Chloride 0.9% Flush (Ns Flush) (06/23/17 21:00) Inpatient Certification (06/23/17 ) Labs Laboratory Tests Test 06/23/17 16:15 06/23/17 16:30 White Blood Count 21.0 TH/MM3 Red Blood Count 4.42 MIL/MM3 Hemoglobin 13.4 GM/DL Hematocrit 39.7 % Mean Corpuscular Volume 90.0 FL Mean Corpuscular Hemoglobin 30.2 PG Mean Corpuscular Hemoglobin Concent 33.6 % Red Cell Distribution Width 14.3 % Platelet Count 318 TH/MM3 Mean Platelet Volume 8.2 FL Neutrophils (%) (Auto) 92.2 % Lymphocytes (%) (Auto) 1.5 % Monocytes (%) (Auto) 6.3 % Eosinophils (%) (Auto) 0.0 % Basophils (%) (Auto) 0.0 % Neutrophils # (Auto) 19.3 TH/MM3 Lymphocytes # (Auto) 0.3 TH/MM3 Monocytes # (Auto) 1.3 TH/MM3 Eosinophils # (Auto) 0.0 TH/MM3 Basophils # (Auto) 0.0 TH/MM3 CBC Comment DIFF FINAL Differential Comment Prothrombin Time 11.3 SEC Prothromb Time International Ratio 1.0 RATIO Activated Partial Thromboplast Time 26.1 SEC Blood Urea Nitrogen 14 MG/DL Creatinine 0.95 MG/DL Random Glucose 133 MG/DL Total Protein 6.2 GM/DL Albumin 2.8 GM/DL Calcium Level 8.2 MG/DL Phosphorus Level 1.8 MG/DL Magnesium Level 2.0 MG/DL Alkaline Phosphatase 71 U/L Aspartate Amino Transf (AST/SGOT) 38 U/L Alanine Aminotransferase (ALT/SGPT) 11 U/L Total Bilirubin 0.7 MG/DL Sodium Level 133 MEQ/L Potassium Level 4.0 MEQ/L Chloride Level 97 MEQ/L Carbon Dioxide Level 24.2 MEQ/L Anion Gap 12 MEQ/L Estimat Glomerular Filtration Rate 78 ML/MIN Lactic Acid Level 1.6 mmol/L Total Creatine Kinase 757 U/L Creatine Kinase MB 1.4 NG/ML Creatine Kinase MB % 0.2 % Troponin I 0.02 NG/ML Lipase 140 U/L Urine Color YELLOW Urine Turbidity HAZY Urine pH 6.0 Urine Specific [place] 1.027 Urine Protein 30 mg/dL Urine Glucose (UA) 70 mg/dL Urine Ketones 80 mg/dL Urine Occult Blood SMALL Urine Nitrite NEG Urine Bilirubin NEG Urine Urobilinogen LESS THAN 2.0 MG/DL Urine Leukocyte Esterase LARGE Urine RBC 7 /hpf Urine WBC 151 /hpf Urine Squamous Epithelial Cells 2 /hpf Urine Bacteria MOD /hpf Urine Mucus MOD /lpf Microscopic Urinalysis Comment CATH-CULTURE IND [facility] Medical Decision Making Medical Screen Exam Complete: Yes Emergency Medical Condition: Yes Differential Diagnosis Sepsis, pneumonia, UTI, PE seems unlikely, dehydration. Narrative Course The patient was roomed emergency department, recognizes this patient has probable sepsis he was started on septic protocol, given 2 L normal saline lactic acid blood cultures drawn and he was started on vancomycin and Zosyn. 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 UA was significant only positive. His white blood cell count and a few days is gone from 11,000-22,000. Lactic acid was 1 indicating the need for more aggressive fluid resuscitation. Patient certainly is septic and appears to be that the urine is the source. He is improving in the emergency department is feeling better. Discussed the need for admission and he is agreeable. Procedures Procedure Narrative Aggregate critical care time was 35 minutes. Time to perform other separately billable procedures was not included in the critical care time. My time did not include minutes spent treating any other patients simultaneously or on activities that did not directly contribute to the patient's treatment. The services I provided to this patient were to treat and/or prevent clinically significant deterioration that could result in: , disability, organ failure I provided critical care services requiring my management, as noted below: Chart data review, documentation time, medication orders and management, vital sign assessments/reviewing monitor data, ordering and reviewing lab tests, ordering and interpreting/reviewing x-rays and diagnostic studies, care of the patient and discussion of the patient with the admitting physicians. Diagnosis Primary Impression: Sepsis Qualified Codes: A41.9 - Sepsis, unspecified organism Additional Impressions: Urinary tract infection Qualified Codes: N30.01 - Acute cystitis with hematuria Lung mass Admitting Information Admitting Physician Requests: Admit Condition: Mark Lopez MD Jun 23, 2017 16:22
[2017-06-23 17:14] LABS: AUTOMATED NEUTROPHIL # 19.3 TH/MM3 (1.8-7.7); HEMATOCRIT 39.7 % (39.0-51.0); HEMO FLAGS DIFF FINAL; LYMPH % 1.5 % (9.0-44.0); LYMPHOCYTE # 0.3 TH/MM3 (1.0-4.8); MEAN CORPUSCULAR HEMOGLOBIN 30.2 PG (27.0-34.0); MEAN CORPUSCULAR HGB CONC 33.6 % (32.0-36.0); MONO % 6.3 % (0.0-8.0); NEUT % 92.2 % (16.0-70.0); PLATELET COUNT 318 TH/MM3 (150-450); RED BLOOD COUNT 4.42 MIL/MM3 (4.50-5.90); RED CELL DISTRIBUTION WIDTH 14.3 % (11.6-17.2)
--- NOTE | 2017-06-23 17:18 | RADRPT ---
EXAM DATE/TIME: 06/23/2017 16:50 [facility] COMPARISON: CT PULMONARY ANGIOGRAM, June 21, 2017, 21:04. CHEST SINGLE AP, June 21, 2017, 20:23. INDICATIONS : Weakness, short of breath. MEDICAL HISTORY : Asthma. SURGICAL HISTORY : None. ENCOUNTER: Initial ACUITY: 1 day PAIN SCORE: 0/10 LOCATION: Bilateral chest FINDINGS: Right upper lobe and left lung base parenchymal opacities are present corresponding to densities seen on the patient's prior CT angiogram. Heart and mediastinum are unremarkable for technique. CONCLUSION: Right upper lobe and lingular parenchymal process as discussed on the patient's prior CT angiogram. Rebecca Bautista MD on June 23, 2017 at 17:15 Board Certified Radiologist. This report was verified electronically.
[2017-06-23 17:23] LABS: APTT (PATIENT) 26.1 SEC (24.3-30.1); PROTHROMBIN TIME - PATIENT 11.3 SEC (9.8-11.6)
[2017-06-23 17:25] LABS: BACTERIA, URINE MOD /hpf; BLOOD, URINE SMALL (NEG); GLUCOSE,URINE 70 mg/dL (NEG); KETONE, URINE 80 mg/dL (NEG); MUCUS URINE MOD /lpf (OCC); NITRITE,URINE NEG (NEG); SQUAMOUS EPITHELIAL CELL URINE 2 /hpf (0-5); URINE COLOR YELLOW (YELLW/STRAW)
[2017-06-23 17:26] LABS: COMMENT (UR) CATH-CULTURE IND; CULTURE IF INDICATED CATH CULTURE IND
[2017-06-23 17:58] LABS: ALT (GPT) 11 U/L (12-78); ANION GAP 12 MEQ/L (5-15); AST (GOT) 38 U/L (15-37); BICARBONATE 24.2 MEQ/L (21.0-32.0); BLOOD UREA NITROGEN 14 MG/DL (7-18); CHLORIDE 97 MEQ/L (98-107); GLOMERULAR FILTRATION RATE 78 ML/MIN (>89); SODIUM (NA) 133 MEQ/L (136-145)
[2017-06-23 18:00] LABS: ALKALINE PHOSPHATASE 71 U/L (45-117); CREATINE KINASE 757 U/L (39-308); TOTAL BILIRUBIN ADULT 0.7 MG/DL (0.2-1.0)
[2017-06-23 18:12] LABS: CKMB 1.4 NG/ML (0.5-3.6)
[2017-06-23] MEDS ORDERED: SODIUM CHLORIDE 0.9% FLUSH 10 ML FLUSH IV FLUSH PRN (19:30)
[2017-06-23] MEDS ORDERED: LACTULOSE SYRUP 20 GM/30 ML CUP PO PRN (20:15)
[2017-06-23] MEDS ORDERED: ACETAMINOPHEN 325 MG TAB PO PRN ×2 (20:15)
[2017-06-23] MEDS ORDERED: ONDANSETRON HCL 4 MG/2 ML VIAL IVP PRN (20:15)
[2017-06-23] MEDS ORDERED: Vancomycin Consult Pharmacy 1 EA OTHER SCH (20:15)
[2017-06-23] MEDS ORDERED: NALOXONE HCL 0.4 MG/ML AMP IV PRN (20:15)
[2017-06-23] MEDS ORDERED: SENNOSIDES 8.6 MG TAB PO PRN (20:15)
[2017-06-23] MEDS ORDERED: MAGNESIUM HYDROXIDE SUSP 30 ML CUP PO PRN (20:15)
[2017-06-23] MEDS: DOCUSATE SODIUM 50 MG/SENNA 8.6 MG TAB PO SCH (21:00)
[2017-06-23] MEDS ORDERED: RABEprazole SODIUM 20 MG DELAYED RELEASE TAB PO SCH (21:00)
[2017-06-23] MEDS ORDERED: SODIUM PHOSPHATE INJ 30 MMOL in SODIUM CHLOR 0.9% 250 ML INJ 250 ML IV ONE (21:00)
[2017-06-23] MEDS: SODIUM CHLORIDE 0.9% FLUSH 10 ML FLUSH IV FLUSH SCH (21:00)
[2017-06-23] MEDS: LATANOPROST 0.005% OPHT SOLN 2.5 ML BTL EACH EYE SCH (21:00)
--- NOTE | 2017-06-23 21:40 | EKG ---
Date Performed: 06/23/2017 Time Performed: 16:02:54 PTAGE: 72 years EKG: Sinus rhythm POSSIBLE LEFT ATRIAL ENLARGEMENT BORDERLINE RIGHT AXIS DEVIATION POSSIBLE INFERIOR MYOCARDIAL INFARC TION NONSPECIFIC INTRAVENTRICULAR CONDUCTION DELAY ABNORMAL ECG PREVIOUS TRACING : 06/22/2017 02.24 No significant change from previous tracing noted. DOCTOR: Kwasi Fu Interpretating Date/Time 06/23/2017 21:38:44
--- NOTE | 2017-06-23 21:41 | HHI.HP ---
HPI Service [facility] Hospitalists Primary Care Physician No Primary Care Physician Admission Diagnosis Sepsis, UTI Diagnoses: Chief Complaint: weakness, falls Travel History International Travel<30 Days: No Contact w/Intl Traveler <30 Da: No Traveled to Known Affected Are: No Sepsis Criteria SIRS Criteria (2 or more): Heart rate over 90, WBC > 32654, < 4000 or > 10% bands Sepsis Criteria (SIRS+source): Infect source susp/known History of Present Illness Written by BLAISE Lamar acting as scribe for Dr. Alvarez] on 06/23/17 at 21 :00 72 y/o male with a history of asthma, bph, and irregular heartbeat at times presented to the ED with complaints of feeling weak and falling multiple times at home. Patient was admitted yesterday in [place] for complaints of chest pain, he was worked up and found to have a negative stress test. Today he began to feel very weak and fell at least 10 times at home. He had associated dizziness prior to his falls. He denies hitting his head or any LOC. He also complains of burning sensation with urination for the last 2 days. He denies any fever, chills, chest pain, or sob. On CTA yesterday he was found to have a lung mass, and wishes to see his ceramic tile installation helper in [place] for work up as outpatient. Review of Systems Except as stated in HPI: all other systems reviewed are Neg Past Family Social History Past Medical History Irregular heart beat at times Asthma BPH Past Surgical History Lung biopsy a few years ago with benign results Cataract surgery Reported Medications Reported Meds & Active Scripts Active Reported Latanoprost Opth Drops (Latanoprost) 0.005% Drops 1 Drop EACH EYE HS Refrigerate until opened. Fludrocortisone (Fludrocortisone Acetate) 0.1 Mg Tab 0.1 Mg PO DAILY Rabeprazole (Rabeprazole Sodium) 20 Mg Tab 20 Mg PO HS Montelukast (Montelukast Sodium) 10 Mg Tab 10 Mg PO HS Propafenone (Propafenone HCl) 150 Mg Tab 225 Mg PO Q8HR Theophylline ER 12 HR (Theophylline) 200 Mg Tab 200 Mg PO Q12H Ecotrin Low Strength (Aspirin) 81 Mg Tabdr 81 Mg PO DAILY Prednisone 10 Mg Tab 15 Mg PO DAILY Tamsulosin (Tamsulosin HCl) 0.4 Mg Cap 0.4 Mg PO BID Os-Marko Calcium + D3 (Calcium Carbonate-Cholecalciferol) 500-200 Mg-Unit Tab 1 Tab PO BID Dulera 120 Act Inh (Mometasone-Formoterol 120 Act Inh) 200-5 Mcg/Act Inh 2 Puff INH BID Asmanex 120 Act Twisthaler (Mometasone 120 Act Inh) 220 Mcg/Act Inh 1 Puff INH BID Allergies: Coded Allergies: No Known Allergies (Verified Allergy, Unknown, 06/21/17) Active Ordered Medications Current Medications Medications (Trade) Dose Ordered Sig/Shelly Route Start Time Stop Time Status Last Admin (NS Flush) 2 ml UNSCH PRN IV FLUSH 06/23/17 19:30 (NS Flush) 2 ml BID IV FLUSH 06/23/17 21:00 Pharmacy Profile Note 0 ml @ 0 mls/hr UNSCH OTHER 06/23/17 20:15 UNV Piperacillin Sod/ Tazobactam Sod 50 ml @ 100 mls/hr Q6H IV 06/23/17 23:00 Sodium Phosphate 30 mmol/Sodium Chloride 260 ml @ 43.333 mls/ hr ONCE ONCE IV 06/23/17 21:00 06/24/17 02:59 (Tylenol) 650 mg Q4H PRN PO 06/23/17 20:15 (Zofran Inj) 4 mg Q6H PRN IVP 06/23/17 20:15 (Heparin Inj) 5,000 units Q12H SQ 06/23/17 21:00 (Tylenol) 650 mg Q6H PRN PO 06/23/17 20:15 (Narcan Inj) 0.4 mg UNSCH PRN IV 06/23/17 20:15 (Eula-Colace) 1 tab BID PO 06/23/17 21:00 (Milk Of Magnesia Liq) 30 ml Q12H PRN PO 06/23/17 20:15 (Senokot) 17.2 mg Q12H PRN PO 06/23/17 20:15 (Lactulose Liq) 30 ml DAILY PRN PO 06/23/17 20:15 (Ecotrin Ec) 81 mg DAILY PO 06/24/17 09:00 (Florinef) 0.1 mg DAILY PO 06/24/17 09:00 (Xalatan 0.005% Opth Soln) 1 drop HS EACH EYE 06/23/17 21:00 (Singulair) 10 mg HS PO 06/23/17 21:00 (Deltasone) 15 mg DAILY PO 06/24/17 09:00 (Rythmol) 225 mg Q8HR PO 06/23/17 22:00 (Aciphex Dr) 20 mg HS PO 06/23/17 21:00 (Flomax) 0.4 mg BID PO 06/23/17 21:00 (Oscal-D 250-125) 500 mg BID PO 06/23/17 21:00 Patient Own Medication PT OWN MED: ASMANEX POWDER FOPR INHALAT... BID INH 06/24/17 09:00 Future Hold Family History Mother at age 68 from heart disease, father at 71 from cancer , however he does not know which kind. Social History Patient denies any tobacco, alcohol or illicit drugs Physical Exam Vital Signs Vital Signs Date Time Temp Pulse Resp B/P (MAP) Pulse Ox O2 Delivery O2 Flow Rate FiO2 06/23/17 20:21 96 Nasal Cannula 2.00 06/23/17 19:52 98.8 85 18 129/62 (84) 96 Nasal Cannula 2.00 06/23/17 16:20 95 Nasal Cannula 06/23/17 16:20 95 Room Air 06/23/17 16:02 100.7 101 24 149/70 (96) 95 06/23/17 16:01 100.7 101 24 149/71 (97) 95 06/23/17 15:58 95 Room Air 06/23/17 15:52 100.7 101 24 149/71 (97) Physical Exam GENERAL: This is a well-nourished, well-developed patient, in no apparent distress. SKIN: No rashes, ecchymoses or lesions. Cool and dry. HEAD: Atraumatic. Normocephalic. EYES: Pupils equal round and reactive. ENT: Nose without bleeding, purulent drainage or septal hematoma. Airway patent. Dry oral mucosa NECK: Trachea midline. No JVD or lymphadenopathy. CARDIOVASCULAR: Regular rate and rhythm without murmurs, gallops, or rubs. RESPIRATORY: Clear to auscultation. Diminished Breath sounds equal bilaterally. No wheezes, rales, or rhonchi. GASTROINTESTINAL: Abdomen soft, non-tender, nondistended. No guarding. Bilateral CVA tenderness MUSCULOSKELETAL: Extremities without clubbing, cyanosis, or edema. No joint tenderness, effusion, or edema noted. No calf tenderness. NEUROLOGICAL: Awake and alert. Motor and sensory grossly within normal limits. Normal speech. Laboratory Laboratory Tests Test 06/23/17 16:15 06/23/17 16:30 White Blood Count 21.0 Red Blood Count 4.42 Hemoglobin 13.4 Hematocrit 39.7 Mean Corpuscular Volume 90.0 Mean Corpuscular Hemoglobin 30.2 Mean Corpuscular Hemoglobin Concent 33.6 Red Cell Distribution Width 14.3 Platelet Count 318 Mean Platelet Volume 8.2 Neutrophils (%) (Auto) 92.2 Lymphocytes (%) (Auto) 1.5 Monocytes (%) (Auto) 6.3 Eosinophils (%) (Auto) 0.0 Basophils (%) (Auto) 0.0 Neutrophils # (Auto) 19.3 Lymphocytes # (Auto) 0.3 Monocytes # (Auto) 1.3 Eosinophils # (Auto) 0.0 Basophils # (Auto) 0.0 CBC Comment DIFF FINAL Differential Comment Prothrombin Time 11.3 Prothromb Time International Ratio 1.0 Activated Partial Thromboplast Time 26.1 Blood Urea Nitrogen 14 Creatinine 0.95 Random Glucose 133 Total Protein 6.2 Albumin 2.8 Calcium Level 8.2 Phosphorus Level 1.8 Magnesium Level 2.0 Alkaline Phosphatase 71 Aspartate Amino Transf (AST/SGOT) 38 Alanine Aminotransferase (ALT/SGPT) 11 Total Bilirubin 0.7 Sodium Level 133 Potassium Level 4.0 Chloride Level 97 Carbon Dioxide Level 24.2 Anion Gap 12 Estimat Glomerular Filtration Rate 78 Lactic Acid Level 1.6 Total Creatine Kinase 757 Creatine Kinase MB 1.4 Creatine Kinase MB % 0.2 Troponin I 0.02 Lipase 140 Urine Color YELLOW Urine Turbidity HAZY Urine pH 6.0 Urine Specific [place] 1.027 Urine Protein 30 Urine Glucose (UA) 70 Urine Ketones 80 Urine Occult Blood SMALL Urine Nitrite NEG Urine Bilirubin NEG Urine Urobilinogen LESS THAN 2.0 Urine Leukocyte Esterase LARGE Urine RBC 7 Urine WBC 151 Urine Squamous Epithelial Cells 2 Urine Bacteria MOD Urine Mucus MOD Microscopic Urinalysis Comment CATH-CULTURE IND Date/Time Source Procedure Growth Status 06/23/17 16:20 Blood Peripheral Aerobic Blood Culture Pending Received 06/23/17 16:20 Blood Peripheral Anaerobic Blood Culture Pending Received 06/23/17 16:30 Urine Catheterized Urine Urine Culture Pending Received Result Diagram: 06/23/17 1615 06/23/17 1615 Caprini VTE Risk Assessment Caprini VTE Risk Assessment: Mod/High Risk (score >= 2) Caprini Risk Assessment Model Point Value = 1 Point Value = 2 Point Value = 3 Point Value = 5 Age 41-60 Minor surgery BMI > 25 kg/m2 Swollen legs Varicose veins or History of unexplained or recurrent spontaneous Oral contraceptives or hormone replacement Sepsis (< 1 month) Serious lung disease, including pneumonia (< 1 month) Abnormal pulmonary function Acute myocardial infarction Congestive heart failure (< 1 month) History of inflammatory bowel disease Medical patient at bed rest Age 61-74 Arthroscopic surgery Major open surgery (> 45 min) Laparoscopic surgery (> 45 min) Malignancy Confined to bed (> 72 hours) Immobilizing plaster cast Central venous access Age >= 75 History of VTE Family history of VTE Factor V Leiden Prothrombin [id number] Lupus anticoagulant Anticardiolipin antibodies Elevated serum homocysteine Heparin-induced thrombocytopenia Other congenital or acquired thrombophilia Stroke (< 1 month) Elective arthroplasty Hip, pelvis, or leg fracture Acute spinal cord injury (< 1 month) Prophylaxis Regimen Total Risk Factor Score Risk Level Prophylaxis Regimen 0-1 Low Early ambulation 2 Moderate Order ONE of the following: *Sequential Compression Device (SCD) *Heparin 5000 units SQ BID 3-4 Higher Order ONE of the following medications: *Heparin 5000 units SQ TID *Enoxaparin/Lovenox 40 mg SQ daily (WT < 150 kg, CrCl > 30 mL/min) *Enoxaparin/Lovenox 30 mg SQ daily (WT < 150 kg, CrCl > 10-29 mL/min) *Enoxaparin/Lovenox 30 mg SQ BID (WT < 150 kg, CrCl > 30 mL/min) AND/OR *Sequential Compression Device (SCD) 5 or more Highest Order ONE of the following medications: *Heparin 5000 units SQ TID (Preferred with Epidurals) *Enoxaparin/Lovenox 40 mg SQ daily (WT < 150 kg, CrCl > 30 mL/min) *Enoxaparin/Lovenox 30 mg SQ daily (WT < 150 kg, CrCl > 10-29 mL/min) *Enoxaparin/Lovenox 30 mg SQ BID (WT < 150 kg, CrCl > 30 mL/min) AND *Sequential Compression Device (SCD) Assessment and Plan Problem List: (1) Sepsis ICD Code: A41.9 - Sepsis, unspecified organism Status: Acute (2) Urinary tract infection ICD Code: N39.0 - Urinary tract infection, site not specified Status: Acute (3) BPH (benign prostatic hyperplasia) ICD Code: N40.0 - Benign prostatic hyperplasia without lower urinary tract symptoms Status: Chronic (4) Hypophosphatemia ICD Code: E83.39 - Other disorders of phosphorus metabolism Status: Acute Assessment and Plan 72 y/o male with a history of asthma, bph, and irregular heartbeat at times presented to the ED with complaints of feeling weak and falling multiple times at home. Sepsis, WBC 21.1, HR 101, with abnormal UA suspected UTI with Ecoli likely related to BPH history, positive CVA tenderness, no acidosis -Urine culture pending, follow til final, preliminary shows gram neg rods -IV antibiotics vancomycin and Zosyn -Will consider abdomen CT if no improvement with antibiotics -IVF for hydration -CBC in AM -Orthostatic BP, fall precautions and consult PT Hypophosphatemia, phosphate 1.8 -IV Supplement ordered -Cont to trend and replace as needed Lung mass, discovered on CT CTA from [place] yesterday reviewed and shows a RU lobe mas 16 x 43 mm. -Patient wishes to have work up with ceramic tile installation helper outpatient in [place] BPH, chronic -Cont home medications Flomax DVT prophylaxis: Heparin Code Status Full Discussed Condition With Patient and patient's This note was transcribed by BLAISE Rouse. I, Dr. Coy Benson personally performed the history, physical exam, and medical decision making; and confirmed the accuracy of the information in the transcribed note. Authenticated by Dr. Coy Benson on 06/23/17 at 21:43. Physician Certification 2 Midnight Certification Type: Admission for Inpatient Services Order for Inpatient Services The services are ordered in accordance with Medicare regulations or non- Medicare payer requirements, as applicable. In the case of services not specified as inpatient-only, they are appropriately provided as inpatient services in accordance with the 2-midnight benchmark. Estimated LOS (days): 2 days is the estimated time the patient will need to remain in the hospital, assuming treatment plan goals are met and no additional complications. Post-Hospital Plan: Home Problem Qualifiers (1) Sepsis: Qualified Codes: A41.9 - Sepsis, unspecified organism (2) Urinary tract infection: Qualified Codes: N30.01 - Acute cystitis with hematuria (3) BPH (benign prostatic hyperplasia): Qualified Codes: N40.1 - Benign prostatic hyperplasia with lower urinary tract symptoms; N39.43 - Post-void dribbling Pam Tavarez Jun 23, 2017 21:41 Cyo Benson MD Jun 23, 2017 21:46
[2017-06-23] MEDS: TAMSULOSIN HCL 0.4 MG CAP PO SCH (22:58)
[2017-06-23] MEDS: MONTELUKAST SODIUM 10 MG TAB PO SCH (22:58)
[2017-06-23] MEDS: PROPAFENONE HCL 150 MG TAB PO SCH (23:00)
[2017-06-23] MEDS: NS + KCL 20 MEQ INJ 1,000 ML IV SCH (23:00)
[2017-06-23] MEDS: HEPARIN SODIUM - SQ 10,000 UNITS/ML VIAL SQ SCH (23:00)
[2017-06-23] MEDS: CALCIUM/VITAMIN D 250 MG/125 U TAB PO SCH (23:03)
[2017-06-23] MEDS: PIPERACIL-TAZO 3.375 GM PREMIX 50 ML IV SCH (23:34)
[2017-06-24] VITALS (8 sets, daily range): BP systolic 105–128; BP diastolic 55–65; PULSE 70–108; RESP 16–20; TEMP 96.6–97.9; O2SAT 93–98
[2017-06-24] MEDS: PROPAFENONE HCL 150 MG TAB PO SCH ×3 (05:04→21:22)
[2017-06-24] MEDS: PIPERACIL-TAZO 3.375 GM PREMIX 50 ML IV SCH ×4 (05:05→23:44)
[2017-06-24] MEDS: NS + KCL 20 MEQ INJ 1,000 ML IV SCH ×2 (05:16→10:34)
[2017-06-24] MEDS: FLUDROCORTISONE ACETATE 0.1 MG TAB PO SCH (08:15)
[2017-06-24] MEDS: predniSONE 10 MG TAB PO SCH (08:15)
[2017-06-24] MEDS: CALCIUM/VITAMIN D 250 MG/125 U TAB PO SCH ×2 (08:15→21:21)
[2017-06-24] MEDS: HEPARIN SODIUM - SQ 10,000 UNITS/ML VIAL SQ SCH ×2 (08:15→21:24)
[2017-06-24] MEDS: TAMSULOSIN HCL 0.4 MG CAP PO SCH ×2 (08:15→21:21)
[2017-06-24] MEDS: DOCUSATE SODIUM 50 MG/SENNA 8.6 MG TAB PO SCH ×2 (08:16→21:00)
[2017-06-24] MEDS: SODIUM CHLORIDE 0.9% FLUSH 10 ML FLUSH IV FLUSH SCH ×2 (08:16→21:43)
[2017-06-24] MEDS: ASPIRIN EC 81 MG TABEC PO SCH (08:16)
[2017-06-24 08:20] LABS: AUTOMATED NEUTROPHIL # 15.5 TH/MM3 (1.8-7.7); BASOPHIL % 0.1 % (0.0-2.0); HEMO FLAGS DIFF FINAL; LYMPH % 1.9 % (9.0-44.0); LYMPHOCYTE # 0.3 TH/MM3 (1.0-4.8); MEAN CELL VOLUME 90.6 FL (80.0-100.0); MEAN CORPUSCULAR HEMOGLOBIN 29.9 PG (27.0-34.0); MONO % 6.9 % (0.0-8.0); NEUT % 91.1 % (16.0-70.0); PLATELET COUNT 269 TH/MM3 (150-450); RED BLOOD COUNT 3.97 MIL/MM3 (4.50-5.90)
[2017-06-24] MEDS ORDERED: VANCOMYCIN 1,000 MG/NS 250 ML IV ONE ×2 (08:30)
[2017-06-24 08:38] LABS: CALCIUM-PROTEIN CORRECTED 8.2 MG/DL (8.5-10.1); POTASSIUM 3.7 MEQ/L (3.5-5.1); TOTAL BILIRUBIN ADULT 0.6 MG/DL (0.2-1.0)
[2017-06-24] MEDS ORDERED: MOMETASONE INH SCH ×2 (09:00→21:00)
--- NOTE | 2017-06-24 11:22 | HHI.PR ---
Subjective Remarks 72 y/o male with a history of asthma, bph, and irregular heartbeat at times presented to the ED with complaints of feeling weak and falling multiple times at home. Patient was admitted yesterday in [place] for complaints of chest pain, he was worked up and found to have a negative stress test. Today he began to feel very weak and fell at least 10 times at home. He had associated dizziness prior to his falls. He denies hitting his head or any LOC. He also complains of burning sensation with urination for the last 2 days. He denies any fever, chills, chest pain, or sob. On CTA yesterday he was found to have a lung mass, and wishes to see his parachute mender in [place] for work up as outpatient. 06-24 sitting in chair right now still feels pretty weak. Continue on antibiotics continue on fluids Discussed with patient and RN Needs physical therapy and occupational therapy Await sensitivities on the urinary tract infection Objective Vitals Vital Signs Date Time Temp Pulse Resp B/P (MAP) Pulse Ox O2 Delivery O2 Flow Rate FiO2 06/24/17 08:00 97.0 70 18 105/59 (74) 98 06/24/17 05:50 96.7 74 16 128/65 (86) 97 06/24/17 03:31 79 06/24/17 00:00 96.6 81 16 120/61 (80) 96 06/23/17 22:00 82 24 115/61 (79) 97 Nasal Cannula 2.00 06/23/17 21:00 84 24 119/61 (80) 97 Nasal Cannula 2.00 06/23/17 20:21 96 Nasal Cannula 2.00 06/23/17 19:52 98.8 85 18 129/62 (84) 96 Nasal Cannula 2.00 06/23/17 16:20 95 Nasal Cannula 06/23/17 16:20 95 Room Air 06/23/17 16:02 100.7 101 24 149/70 (96) 95 06/23/17 16:01 100.7 101 24 149/71 (97) 95 06/23/17 15:58 95 Room Air 06/23/17 15:52 100.7 101 24 149/71 (97) I/O 06/23/17 06/23/17 06/23/17 06/24/17 06/24/17 06/24/17 06:59 14:59 22:59 06:59 14:59 22:59 Intake Total 2350 ml 2350 ml 1370 ml Output Total 425 ml Balance 2350 ml 1925 ml 1370 ml Intake Oral 120 ml IV Total 2350 ml 2350 ml 1250 ml Output Urine Total 425 ml Result Diagram: 06/24/17 0627 06/24/1727 Other Results Laboratory Tests Test 06/23/17 16:15 06/23/17 16:30 06/24/17 06:27 White Blood Count 21.0 TH/MM3 17.0 TH/MM3 Red Blood Count 4.42 MIL/MM3 3.97 MIL/MM3 Hemoglobin 13.4 GM/DL 11.9 GM/DL Hematocrit 39.7 % 36.0 % Mean Corpuscular Volume 90.0 FL 90.6 FL Mean Corpuscular Hemoglobin 30.2 PG 29.9 PG Mean Corpuscular Hemoglobin Concent 33.6 % 33.0 % Red Cell Distribution Width 14.3 % 14.0 % Platelet Count 318 TH/MM3 269 TH/MM3 Mean Platelet Volume 8.2 FL 8.5 FL Neutrophils (%) (Auto) 92.2 % 91.1 % Lymphocytes (%) (Auto) 1.5 % 1.9 % Monocytes (%) (Auto) 6.3 % 6.9 % Eosinophils (%) (Auto) 0.0 % 0.0 % Basophils (%) (Auto) 0.0 % 0.1 % Neutrophils # (Auto) 19.3 TH/MM3 15.5 TH/MM3 Lymphocytes # (Auto) 0.3 TH/MM3 0.3 TH/MM3 Monocytes # (Auto) 1.3 TH/MM3 1.2 TH/MM3 Eosinophils # (Auto) 0.0 TH/MM3 0.0 TH/MM3 Basophils # (Auto) 0.0 TH/MM3 0.0 TH/MM3 CBC Comment DIFF FINAL DIFF FINAL Differential Comment Prothrombin Time 11.3 SEC Prothromb Time International Ratio 1.0 RATIO Activated Partial Thromboplast Time 26.1 SEC Blood Urea Nitrogen 14 MG/DL 11 MG/DL Creatinine 0.95 MG/DL 0.71 MG/DL Random Glucose 133 MG/DL 103 MG/DL Total Protein 6.2 GM/DL 5.0 GM/DL Albumin 2.8 GM/DL 2.2 GM/DL Calcium Level 8.2 MG/DL 7.1 MG/DL Phosphorus Level 1.8 MG/DL 2.9 MG/DL Magnesium Level 2.0 MG/DL 2.0 MG/DL Alkaline Phosphatase 71 U/L 50 U/L Aspartate Amino Transf (AST/SGOT) 38 U/L 32 U/L Alanine Aminotransferase (ALT/SGPT) 11 U/L 10 U/L Total Bilirubin 0.7 MG/DL 0.6 MG/DL Sodium Level 133 MEQ/L 138 MEQ/L Potassium Level 4.0 MEQ/L 3.7 MEQ/L Chloride Level 97 MEQ/L 105 MEQ/L Carbon Dioxide Level 24.2 MEQ/L 23.0 MEQ/L Anion Gap 12 MEQ/L 10 MEQ/L Estimat Glomerular Filtration Rate 78 ML/MIN 109 ML/MIN Lactic Acid Level 1.6 mmol/L Total Creatine Kinase 757 U/L Creatine Kinase MB 1.4 NG/ML Creatine Kinase MB % 0.2 % Troponin I 0.02 NG/ML Lipase 140 U/L Theophylline Level 20.1 MCG/ML Urine Color YELLOW Urine Turbidity HAZY Urine pH 6.0 Urine Specific [place] 1.027 Urine Protein 30 mg/dL Urine Glucose (UA) 70 mg/dL Urine Ketones 80 mg/dL Urine Occult Blood SMALL Urine Nitrite NEG Urine Bilirubin NEG Urine Urobilinogen LESS THAN 2.0 MG/DL Urine Leukocyte Esterase LARGE Urine RBC 7 /hpf Urine WBC 151 /hpf Urine Squamous Epithelial Cells 2 /hpf Urine Bacteria MOD /hpf Urine Mucus MOD /lpf Microscopic Urinalysis Comment CATH-CULTURE IND Protein Corrected Calcium 8.2 MG/DL Objective Remarks GENERAL: This is a well-nourished, well-developed patient, in no apparent distress. SKIN: No rashes, ecchymoses or lesions. Cool and dry. HEAD: Atraumatic. Normocephalic. EYES: Pupils equal round and reactive. Extraocular muscles are grossly intact ENT: Nose without bleeding, purulent drainage or septal hematoma. Airway patent. Dry oral mucosa tongue is midline NECK: Trachea midline. No JVD or lymphadenopathy. CARDIOVASCULAR: Regular rate and rhythm without murmurs, gallops, or rubs. S1- S2 no S3 or S4 no heave or thrill RESPIRATORY: Clear to auscultation. Diminished Breath sounds equal bilaterally. No wheezes, rales, or rhonchi. GASTROINTESTINAL: Abdomen soft, non-tender, nondistended. No guarding. Bilateral CVA tenderness MUSCULOSKELETAL: Extremities without clubbing, cyanosis, or edema. No joint tenderness, effusion, or edema noted. No calf tenderness. Generalized weakness NEUROLOGICAL: Awake and alert. Motor and sensory grossly within normal limits. Normal speech. Insight and judgment good mood and behavior appears appropriate Medications and IVs Current Medications Ondansetron HCl (Zofran Inj) 4 mg ONCE ONCE IV Last administered on 06/23/17 16:23; Start 06/23/17 at 16:15; Stop 06/23/17 at 16:16; Status DC Sodium Chloride 1,000 ml @ 999 mls/hr BOLUS ONCE IV Last administered on 06/23 16:22; Start 06/23/17 at 16:15; Stop 06/23/17 at 17:15; Status DC Sodium Chloride 1,000 ml @ 999 mls/hr BOLUS ONCE IV Last administered on 06/23 16:22; Start 06/23/17 at 16:15; Stop 06/23/17 at 17:15; Status DC Vancomycin HCl 1000 mg/Sodium Chloride 250 ml @ 250 mls/hr ONCE ONCE IV Last administered on 06/23/17 20:05; Start 06/23/17 at 16:15; Stop 06/23/17 at 17:14 ; Status DC Piperacillin Sod/ Tazobactam Sod 100 ml @ 200 mls/hr ONCE ONCE IV Last administered on 06/23/17 16:44; Start 06/23/17 at 16:15; Stop 06/23/17 at 16:44 ; Status DC Sodium Chloride (NS Flush) 2 ml UNSCH PRN IV FLUSH FLUSH AFTER USING IV ACCESS ; Start 06/23/17 at 19:30 Sodium Chloride (NS Flush) 2 ml BID IV FLUSH ; Start 06/23/17 at 21:00 Pharmacy Profile Note 0 ml @ 0 mls/hr UNSCH OTHER ; Start 06/23/17 at 20:15 Piperacillin Sod/ Tazobactam Sod 50 ml @ 100 mls/hr Q6H IV Last administered on 06/24/17 10:34; Start 06/23/17 at 23:00 Sodium Phosphate 30 mmol/Sodium Chloride 260 ml @ 43.333 mls/ hr ONCE ONCE IV Last administered on 06/23/17 22:57; Start 06/23/17 at 21:00; Stop 06/24/17 at 02:59; Status DC Acetaminophen (Tylenol) 650 mg Q4H PRN PO TEMP > 100.4; Start 06/23/17 at 20:15 Ondansetron HCl (Zofran Inj) 4 mg Q6H PRN IVP NAUSEA OR VOMITING; Start at 20:15 Heparin Sodium (Porcine) (Heparin Inj) 5,000 units Q12H SQ Last administered on 06/24/17 08:15; Start 06/23/17 at 21:00 Acetaminophen (Tylenol) 650 mg Q6H PRN PO PAIN SCALE 1 TO 10; Start 06/23/17 at 20:15 Naloxone HCl (Narcan Inj) 0.4 mg UNSCH PRN IV SEE LABEL COMMENTS; Start at 20:15 Senna/Docusate Sodium (Eula-Colace) 1 tab BID PO ; Start 06/23/17 at 21:00 Magnesium Hydroxide (Milk Of Magnesia Liq) 30 ml Q12H PRN PO MILD - MODERATE CONSTIPATION; Start 06/23/17 at 20:15 Sennosides (Senokot) 17.2 mg Q12H PRN PO MODERATE - SEVERE CONSTIPATION; Start 06/23/17 at 20:15 Lactulose (Lactulose Liq) 30 ml DAILY PRN PO SEVERE CONSITIPATION; Start at 20:15 Aspirin (Ecotrin Ec) 81 mg DAILY PO Last administered on 06/24/17 08:16; Start 06/24/17 at 09:00 Fludrocortisone Acetate (Florinef) 0.1 mg DAILY PO Last administered on 08:15; Start 06/24/17 at 09:00 Latanoprost (Xalatan 0.005% Opt Soln) 1 drop HS EACH EYE ; Start 06/23/17 at 21 :00 Montelukast Sodium (Singulair) 10 mg HS PO Last administered on 06/23/17 22:58 ; Start 06/23/17 at 21:00 Prednisone (Deltasone) 15 mg DAILY PO Last administered on 06/24/17 08:15; Start 06/24/17 at 09:00 Propafenone HCl (Rythmol) 225 mg Q8HR PO Last administered on 06/24/17 05:04; Start 06/23/17 at 22:00 Rabeprazole Sodium (Aciphex Dr) 20 mg HS PO Last administered on 06/23/17 22: 57; Start 06/23/17 at 21:00; Stop 06/24/17 at 09:12; Status DC Tamsulosin HCl (Flomax) 0.4 mg BID PO Last administered on 06/24/17 08:15; Start 06/23/17 at 21:00 Calcium/Vitamin D (Oscal-D 250-125) 500 mg BID PO Last administered on 08:15; Start 06/23/17 at 21:00 Patient Own Medication PT OWN MED: ASMANEX POWDER FOPR INHALAT... BID INH ; Start 06/24/17 at 09:00; Status Future Hold Potassium Chloride/Sodium Chloride 1,000 ml @ 100 mls/hr Q10H IV Last administered on 06/24/17 10:34; Start 06/23/17 at 21:15 Vancomycin HCl 1000 mg/Sodium Chloride 250 ml @ 250 mls/hr ONCE ONCE IV Last administered on 06/24/17 08:34; Start 06/24/17 at 08:30; Stop 06/24/17 at 09:29 ; Status DC Vancomycin HCl 1000 mg/Sodium Chloride 250 ml @ 250 mls/hr Q12H IV ; Start at 20:00 Miscellaneous Information SPECIFIC LAB TO BE IRENA... ONCE ONCE .XX ; Start 06/25 at 19:45; Stop 06/25/17 at 19:46 Pantoprazole Sodium (Protonix) 40 mg HS PO ; Start 06/24/17 at 21:00 A/P Problem List: (1) Sepsis ICD Code: A41.9 - Sepsis, unspecified organism Status: Acute (2) Urinary tract infection ICD Code: N39.0 - Urinary tract infection, site not specified Status: Acute (3) BPH (benign prostatic hyperplasia) ICD Code: N40.0 - Benign prostatic hyperplasia without lower urinary tract symptoms Status: Chronic (4) Hypophosphatemia ICD Code: E83.39 - Other disorders of phosphorus metabolism Status: Acute (5) Adrenal insufficiency ICD Code: E27.40 - Unspecified adrenocortical insufficiency Assessment and Plan 72 y/o male with a history of asthma, bph, and irregular heartbeat at times presented to the ED with complaints of feeling weak and falling multiple times at home. Sepsis, WBC 21.1, HR 101, with abnormal UA suspected UTI with Ecoli likely related to BPH history, positive CVA tenderness, no acidosis -Urine culture pending, follow Until final, preliminary shows gram neg rods -IV antibiotics vancomycin and Zosyn -Will consider abdomen CT if no improvement with antibiotics -IVF for hydration -CBC in AM -Orthostatic BP, fall precautions and consult PT Hypophosphatemia, phosphate 1.8 -IV Supplement ordered -Cont to trend and replace as needed Lung mass, discovered on CT CTA from [place] yesterday reviewed and shows a RU lobe mas 16 x 43 mm. -Patient wishes to have work up with parachute mender outpatient in [place] Adrenal insufficiency continue on his home medications for this therapy and occupational therapy to eval and treat BPH, chronic -Cont home medications Flomax DVT prophylaxis: Heparin Needs physical therapy and occupational therapy to eval and treat. Await sensitivities Discussed with patient and RN FULL CODE Problem Qualifiers (1) Sepsis: Qualified Codes: A41.9 - Sepsis, unspecified organism (2) Urinary tract infection: Qualified Codes: N30.01 - Acute cystitis with hematuria (3) BPH (benign prostatic hyperplasia): Qualified Codes: N40.1 - Benign prostatic hyperplasia with lower urinary tract symptoms; N39.43 - Post-void dribbling Yogesh Soriano DO Jun 24, 2017 11:22
[2017-06-24] MEDS ORDERED: FORMOTEROL INH SCH (21:00)
[2017-06-24] MEDS: PANTOPRAZOLE SOD 40 MG DELAYED RELEASE TAB PO SCH (21:21)
[2017-06-24] MEDS: MONTELUKAST SODIUM 10 MG TAB PO SCH (21:23)
[2017-06-24] MEDS: VANCOMYCIN 1,000 MG/NS 250 ML IV SCH ×2 (21:40)
[2017-06-25] VITALS (8 sets, daily range): BP systolic 107–140; BP diastolic 62–69; PULSE 79–87; RESP 19–23; TEMP 96.8–100.2; O2SAT 91–94
[2017-06-25] MEDS: NS + KCL 20 MEQ INJ 1,000 ML IV SCH ×3 (03:54→23:15)
[2017-06-25] MEDS: PROPAFENONE HCL 150 MG TAB PO SCH ×3 (05:21→21:55)
[2017-06-25] MEDS: PIPERACIL-TAZO 3.375 GM PREMIX 50 ML IV SCH (05:22)
[2017-06-25 05:49] LABS: ANION GAP 10 MEQ/L (5-15); AST (GOT) 27 U/L (15-37); BICARBONATE 23.3 MEQ/L (21.0-32.0); BLOOD UREA NITROGEN 13 MG/DL (7-18); CHLORIDE 106 MEQ/L (98-107); GLOMERULAR FILTRATION RATE 93 ML/MIN (>89); MAGNESIUM 2.1 MG/DL (1.5-2.5); POTASSIUM 4.1 MEQ/L (3.5-5.1); SODIUM (NA) 139 MEQ/L (136-145)
[2017-06-25 05:52] LABS: AUTOMATED NEUTROPHIL # 13.5 TH/MM3 (1.8-7.7); BASOPHIL % 0.2 % (0.0-2.0); EOSINOPHIL % 0.1 % (0.0-4.0); HEMATOCRIT 36.8 % (39.0-51.0); HEMO FLAGS DIFF FINAL; LYMPH % 3.2 % (9.0-44.0); LYMPHOCYTE # 0.5 TH/MM3 (1.0-4.8); MEAN CELL VOLUME 90.5 FL (80.0-100.0); MEAN CORPUSCULAR HEMOGLOBIN 30.6 PG (27.0-34.0); MEAN CORPUSCULAR HGB CONC 33.8 % (32.0-36.0); MONO % 9.9 % (0.0-8.0); NEUT % 86.6 % (16.0-70.0); PLATELET COUNT 244 TH/MM3 (150-450); RED BLOOD COUNT 4.07 MIL/MM3 (4.50-5.90); RED CELL DISTRIBUTION WIDTH 14.8 % (11.6-17.2); WHITE BLOOD COUNT 15.6 TH/MM3 (4.0-11.0)
[2017-06-25 05:57] LABS: ALKALINE PHOSPHATASE 49 U/L (45-117); ALT (GPT) 10 U/L (12-78); CALCIUM-PROTEIN CORRECTED 8.9 MG/DL (8.5-10.1); FREE T4 1.29 NG/DL (0.76-1.46); TOTAL BILIRUBIN ADULT 0.5 MG/DL (0.2-1.0)
[2017-06-25] MEDS: ASPIRIN EC 81 MG TABEC PO SCH (08:36)
[2017-06-25] MEDS: TAMSULOSIN HCL 0.4 MG CAP PO SCH ×2 (08:36→21:51)
[2017-06-25] MEDS: CALCIUM/VITAMIN D 250 MG/125 U TAB PO SCH ×2 (08:36→21:48)
[2017-06-25] MEDS: predniSONE 10 MG TAB PO SCH (08:36)
[2017-06-25] MEDS: FLUDROCORTISONE ACETATE 0.1 MG TAB PO SCH (08:36)
[2017-06-25] MEDS: SODIUM CHLORIDE 0.9% FLUSH 10 ML FLUSH IV FLUSH SCH ×2 (08:37→21:00)
[2017-06-25] MEDS: HEPARIN SODIUM - SQ 10,000 UNITS/ML VIAL SQ SCH ×2 (08:37→21:47)
[2017-06-25] MEDS: VANCOMYCIN 1,000 MG/NS 250 ML IV SCH ×2 (08:37)
[2017-06-25] MEDS: DOCUSATE SODIUM 50 MG/SENNA 8.6 MG TAB PO SCH ×2 (08:38→21:00)
--- NOTE | 2017-06-25 11:39 | HHI.PR ---
Subjective Remarks Patient is having watery diarrhea today. No abdominal pain. He is eating okay. Discussed with RN. Concern for C. difficile. Objective Vitals Vital Signs Date Time Temp Pulse Resp B/P (MAP) Pulse Ox O2 Delivery O2 Flow Rate FiO2 06/25/17 08:00 98.5 84 19 135/69 (91) 94 06/25/17 03:48 96.8 84 21 140/65 (90) 92 06/25/17 01:00 99.7 06/25/17 00:00 100.2 80 19 107/64 (78) 94 06/24/17 20:22 93 Nasal Cannula 2.00 06/24/17 20:00 97.9 108 19 108/55 (72) 93 06/24/17 19:52 79 06/24/17 16:00 97.8 87 19 108/61 (77) 95 06/24/17 12:00 97.6 96 20 127/60 (82) 95 I/O 06/24/17 06/24/17 06/24/17 06/25/17 06/25/17 06/25/17 07:00 15:00 23:00 07:00 15:00 23:00 Intake Total 2350 ml 1370 ml 1450 ml 940 ml Output Total 425 ml 1200 ml Balance 1925 ml 1370 ml 250 ml 940 ml Intake Oral 120 ml 1200 ml 360 ml IV Total 2350 ml 1250 ml 250 ml 580 ml Output Urine Total 425 ml 1200 ml # Voids 2 # Bowel Movements 2 2 Result Diagram: 06/25/17 0455 06/25/17 0455 Imaging Last Impressions Chest X-Ray 06/23/17 1608 Signed Impressions: Service Date/Time: Friday, June 23, 2017 16:50 - CONCLUSION: Right upper lobe and lingular parenchymal process as discussed on the patient's prior CT angiogram. Rebecca Bautista MD Objective Remarks GENERAL: This is a well-nourished, well-developed patient, in no apparent distress. CARDIOVASCULAR: Normal rate and regular rhythm without murmurs, gallops, or rubs. RESPIRATORY: Good respiratory efforts. Diminished breath sounds at the bases otherwise clear to auscultation bilaterally. GASTROINTESTINAL: Abdomen soft, non-tender, non-distended. Normal active bowel sounds MUSCULOSKELETAL: Extremities without cyanosis, or edema. NEURO: Alert & Oriented x4 to person, place, time, situation. Moves all ext x4 PSYCH: Appropriate mood and affect. A/P Problem List: (1) Sepsis ICD Code: A41.9 - Sepsis, unspecified organism Status: Acute (2) Urinary tract infection ICD Code: N39.0 - Urinary tract infection, site not specified Status: Acute (3) BPH (benign prostatic hyperplasia) ICD Code: N40.0 - Benign prostatic hyperplasia without lower urinary tract symptoms Status: Chronic (4) Hypophosphatemia ICD Code: E83.39 - Other disorders of phosphorus metabolism Status: Acute (5) Adrenal insufficiency ICD Code: E27.40 - Unspecified adrenocortical insufficiency Assessment and Plan 72 y/o male with a history of asthma, bph, and irregular heartbeat at times presented to the ED with complaints of feeling weak and falling multiple times at home. Patient has sepsis secondary to UTI. Sepsis secondary to UTI, WBC 21.1, HR 101, with abnormal UA. Urine grew Klebsiella. -Sepsis resolving. Urine grew Klebsiella. De-escalate antibiotics. Discontinue vancomycin therapy. Transition to oral cefuroxime. - DC IV fluids. Diarrhea: Doubt C. difficile but need to rule out prior to DC. May be related to Antibiotics and patient received stool softener yesterday. - Check C. difficile. If negative plan to treat with antidiarrheal. Lung mass, discovered on CT CTA from [place] yesterday reviewed and shows a RU lobe mas 16 x 43 mm. -Patient wishes to have work up with sign maker outpatient in [place] Hypophosphatemia, phosphate 1.8 -Oral Supplement ordered -Cont to trend and replace as needed Adrenal insufficiency continue on his home medications for this therapy and occupational therapy to eval and treat BPH, chronic -Cont home medications Flomax DVT prophylaxis: Heparin Discharge Planning Plan to discharge home tomorrow with home health and physical therapy. Continues to improve. Problem Qualifiers (1) Sepsis: Qualified Codes: A41.9 - Sepsis, unspecified organism (2) Urinary tract infection: Qualified Codes: N30.01 - Acute cystitis with hematuria (3) BPH (benign prostatic hyperplasia): Qualified Codes: N40.1 - Benign prostatic hyperplasia with lower urinary tract symptoms; N39.43 - Post-void dribbling Juan Jose Austin MD Jun 25, 2017 11:39
[2017-06-25 17:05] LABS: HEMOGLOBIN A1a 2.1 %; HEMOGLOBIN A1b 1.4 %; HEMOGLOBIN Ao 85.4 %; HEMOGLOBIN LA1C 1.5 %; HEMOGLOBIN P3 3.6 %
[2017-06-25] MEDS: CALCIUM ACETATE 667 MG CAP PO SCH (17:29)
[2017-06-25 19:26] LABS: C. DIFF EPI 027 PRESUMPTIVE NEGATIVE (NEGATIVE)
[2017-06-25] MEDS ORDERED: PHARMACY ORDERED LAB ONE (19:45)
[2017-06-25] MEDS: PANTOPRAZOLE SOD 40 MG DELAYED RELEASE TAB PO SCH (21:47)
[2017-06-25] MEDS: metroNIDAZOLE 500 MG INJ 100 ML IV SCH (21:47)
[2017-06-25] MEDS: CEFUROXIME AXETIL 500 MG TAB PO SCH (21:48)
[2017-06-25] MEDS: MONTELUKAST SODIUM 10 MG TAB PO SCH (21:48)
[2017-06-26] MEDS: LATANOPROST 0.005% OPHT SOLN 2.5 ML BTL EACH EYE SCH ×3 (00:39→21:00)
[2017-06-26] MEDS: metroNIDAZOLE 500 MG INJ 100 ML IV SCH ×4 (03:22→21:19)
[2017-06-26 04:00] VITALS: BP 160/71; PULSE 91; RESP 20; TEMP 98.7; O2SAT 93
[2017-06-26] MEDS: PROPAFENONE HCL 150 MG TAB PO SCH ×3 (05:30→21:22)
[2017-06-26 06:51] LABS: HEMATOCRIT 39.3 % (39.0-51.0); MEAN CELL VOLUME 91.4 FL (80.0-100.0); MEAN CORPUSCULAR HEMOGLOBIN 29.4 PG (27.0-34.0); MEAN CORPUSCULAR HGB CONC 32.2 % (32.0-36.0); PLATELET COUNT 290 TH/MM3 (150-450); RED CELL DISTRIBUTION WIDTH 14.1 % (11.6-17.2); REVIEW FLAG FINAL; WHITE BLOOD COUNT 14.5 TH/MM3 (4.0-11.0)
[2017-06-26 07:01] LABS: BICARBONATE 26.3 MEQ/L (21.0-32.0); POTASSIUM 3.5 MEQ/L (3.5-5.1)
[2017-06-26] MEDS: DOCUSATE SODIUM 50 MG/SENNA 8.6 MG TAB PO SCH ×2 (07:44→21:00)
[2017-06-26 08:00] VITALS: BP 143/84; PULSE 100; PULSE 99; RESP 19; TEMP 98.6; O2SAT 94
[2017-06-26] MEDS: SODIUM CHLORIDE 0.9% FLUSH 10 ML FLUSH IV FLUSH SCH ×2 (08:59→21:18)
[2017-06-26] MEDS: CEFUROXIME AXETIL 500 MG TAB PO SCH ×2 (09:00→21:17)
[2017-06-26] MEDS: CALCIUM/VITAMIN D 250 MG/125 U TAB PO SCH ×2 (09:01→21:18)
[2017-06-26] MEDS: ASPIRIN EC 81 MG TABEC PO SCH (09:01)
[2017-06-26] MEDS: TAMSULOSIN HCL 0.4 MG CAP PO SCH ×2 (09:01→21:17)
[2017-06-26] MEDS: HEPARIN SODIUM - SQ 10,000 UNITS/ML VIAL SQ SCH ×2 (09:01→21:17)
[2017-06-26] MEDS: FLUDROCORTISONE ACETATE 0.1 MG TAB PO SCH (09:01)
[2017-06-26] MEDS: CALCIUM ACETATE 667 MG CAP PO SCH ×3 (09:01→17:27)
[2017-06-26] MEDS: predniSONE 10 MG TAB PO SCH (09:01)
[2017-06-26] MEDS: NS + KCL 20 MEQ INJ 1,000 ML IV SCH (09:04)
--- NOTE | 2017-06-26 10:22 | HHI.PR ---
Subjective Remarks C. difficile came back positive. Still having diarrhea this morning. Patient had a large episode of liquid stool. Discussed with RN. Patient also had a brief period of confusion earlier this morning. He is back at his baseline. Not eating or drinking much. He denies abdominal pain or nausea. Objective Vitals Vital Signs Date Time Temp Pulse Resp B/P (MAP) Pulse Ox O2 Delivery O2 Flow Rate FiO2 06/26/17 08:00 98.6 99 19 143/84 (103) 94 06/26/17 04:00 98.7 91 20 160/71 (100) 93 06/25/17 23:00 99.0 79 20 126/64 (84) 93 06/25/17 20:00 99.9 87 20 135/62 (86) 94 06/25/17 16:00 100.1 87 23 132/68 (89) 91 06/25/17 12:00 98.1 85 21 123/68 (86) 92 I/O 06/25/17 06/25/17 06/25/17 06/26/17 06/26/17 06/26/17 07:00 15:00 23:00 07:00 15:00 23:00 Intake Total 940 ml 300 ml 1100 ml 567 ml 1000 ml Output Total 200 ml Balance 940 ml 300 ml 900 ml 567 ml 1000 ml Intake Oral 360 ml 600 ml IV Total 580 ml 300 ml 500 ml 567 ml 1000 ml Output Urine Total 200 ml # Voids 2 3 5 # Bowel Movements 2 6 3 Result Diagram: 06/26/17 0522 06/26/17 0552 Objective Remarks GENERAL: This is a well-nourished, well-developed patient, in no apparent distress. CARDIOVASCULAR: Normal rate and regular rhythm without murmurs, gallops, or rubs. RESPIRATORY: Good respiratory efforts. Diminished breath sounds at the bases otherwise clear to auscultation bilaterally. GASTROINTESTINAL: Abdomen soft, non-tender, non-distended. Normal active bowel sounds MUSCULOSKELETAL: Extremities without cyanosis, or edema. NEURO: Alert & Oriented x4 to person, place, time, situation. Moves all ext x4 PSYCH: Appropriate mood and affect. A/P Problem List: (1) Sepsis ICD Code: A41.9 - Sepsis, unspecified organism Status: Acute (2) Urinary tract infection ICD Code: N39.0 - Urinary tract infection, site not specified Status: Acute (3) BPH (benign prostatic hyperplasia) ICD Code: N40.0 - Benign prostatic hyperplasia without lower urinary tract symptoms Status: Chronic (4) Hypophosphatemia ICD Code: E83.39 - Other disorders of phosphorus metabolism Status: Acute (5) Adrenal insufficiency ICD Code: E27.40 - Unspecified adrenocortical insufficiency Assessment and Plan 72 y/o male with a history of asthma, bph, and irregular heartbeat at times presented to the ED with complaints of feeling weak and falling multiple times at home. Patient has sepsis secondary to UTI. Sepsis secondary to UTI, WBC 21.1, HR 101, with abnormal UA. Urine grew Klebsiella. -Sepsis resolving. Urine grew Klebsiella. Status post vancomycin. Continue Oral cefuroxime. C. difficile colitis: - Continue IV Flagyl for now. Add Lactinex. - Continue IVF. Lung mass, discovered on CT CTA from [place] yesterday reviewed and shows a RU lobe mas 16 x 43 mm. -Patient wishes to have work up with washer machine outpatient in [place] Hypophosphatemia, phosphate 1.8 -Oral Supplement ordered -Cont to trend and replace as needed Adrenal insufficiency continue on his home medications for this therapy and occupational therapy to eval and treat BPH, chronic -Cont home medications Flomax DVT prophylaxis: Heparin Discharge Planning Pending improvement Problem Qualifiers (1) Sepsis: Qualified Codes: A41.9 - Sepsis, unspecified organism (2) Urinary tract infection: Qualified Codes: N30.01 - Acute cystitis with hematuria (3) BPH (benign prostatic hyperplasia): Qualified Codes: N40.1 - Benign prostatic hyperplasia with lower urinary tract symptoms; N39.43 - Post-void dribbling Juan Jose Austin MD Jun 26, 2017 10:22
[2017-06-26 12:00] VITALS: BP 119/67; PULSE 100; RESP 19; TEMP 98.4; O2SAT 92
[2017-06-26] MEDS: D5-1/2 NS + KCL 20 MEQ INJ 1,000 ML IV SCH ×2 (12:52→17:28)
[2017-06-26 16:00] VITALS: BP 111/67; PULSE 89; RESP 18; TEMP 96.8; O2SAT 96
[2017-06-26 16:46] VITALS: PULSE 82
[2017-06-26 20:00] VITALS: BP 115/56; PULSE 80; RESP 18; TEMP 98.9; O2SAT 96
[2017-06-26] MEDS: MONTELUKAST SODIUM 10 MG TAB PO SCH (21:00)
[2017-06-26] MEDS: PANTOPRAZOLE SOD 40 MG DELAYED RELEASE TAB PO SCH (21:17)
[2017-06-26] MEDS: LACTOBACILLUS ACIDOPHILUS TAB PO SCH (21:17)
[2017-06-27] VITALS (7 sets, daily range): BP systolic 114–140; BP diastolic 62–74; PULSE 73–90; RESP 18–20; TEMP 95.7–99.4; O2SAT 90–98
[2017-06-27] MEDS: D5-1/2 NS + KCL 20 MEQ INJ 1,000 ML IV SCH ×3 (01:52→18:22)
[2017-06-27] MEDS: metroNIDAZOLE 500 MG INJ 100 ML IV SCH ×4 (01:52→21:50)
[2017-06-27] MEDS: PROPAFENONE HCL 150 MG TAB PO SCH ×3 (05:54→21:48)
[2017-06-27 07:32] LABS: HEMATOCRIT 37.7 % (39.0-51.0); MEAN CELL VOLUME 90.7 FL (80.0-100.0); MEAN CORPUSCULAR HEMOGLOBIN 30.1 PG (27.0-34.0); MEAN CORPUSCULAR HGB CONC 33.1 % (32.0-36.0); PLATELET COUNT 268 TH/MM3 (150-450); RED BLOOD COUNT 4.16 MIL/MM3 (4.50-5.90); RED CELL DISTRIBUTION WIDTH 14.2 % (11.6-17.2); REVIEW FLAG FINAL; WHITE BLOOD COUNT 11.6 TH/MM3 (4.0-11.0)
[2017-06-27 08:01] LABS: BICARBONATE 29.5 MEQ/L (21.0-32.0); POTASSIUM 3.1 MEQ/L (3.5-5.1)
[2017-06-27] MEDS: FLUDROCORTISONE ACETATE 0.1 MG TAB PO SCH (08:57)
[2017-06-27] MEDS: DOCUSATE SODIUM 50 MG/SENNA 8.6 MG TAB PO SCH ×2 (08:57→21:00)
[2017-06-27] MEDS: LACTOBACILLUS ACIDOPHILUS TAB PO SCH ×2 (08:57→21:49)
[2017-06-27] MEDS: ASPIRIN EC 81 MG TABEC PO SCH (08:58)
[2017-06-27] MEDS: CEFUROXIME AXETIL 500 MG TAB PO SCH ×2 (08:58→21:49)
[2017-06-27] MEDS: predniSONE 10 MG TAB PO SCH (08:58)
[2017-06-27] MEDS: CALCIUM ACETATE 667 MG CAP PO SCH (08:59)
[2017-06-27] MEDS: HEPARIN SODIUM - SQ 10,000 UNITS/ML VIAL SQ SCH ×2 (08:59→21:49)
[2017-06-27] MEDS: CALCIUM/VITAMIN D 250 MG/125 U TAB PO SCH ×2 (08:59→21:49)
[2017-06-27] MEDS: TAMSULOSIN HCL 0.4 MG CAP PO SCH ×2 (08:59→21:49)
[2017-06-27] MEDS: SODIUM CHLORIDE 0.9% FLUSH 10 ML FLUSH IV FLUSH SCH ×2 (09:00→21:00)
[2017-06-27] MEDS ORDERED: POTASSIUM CHLORIDE 10 MEQ CONTROLLED RELEASE TAB PO ONE (11:00)
--- NOTE | 2017-06-27 11:50 | HHI.PR ---
Subjective Remarks Patient is still having diarrhea but he reports improvement. He states he had about 4 episodes today which she reports is an improvement compared to yesterday. No abdominal pain or fevers. Objective Vitals Vital Signs Date Time Temp Pulse Resp B/P (MAP) Pulse Ox O2 Delivery O2 Flow Rate FiO2 06/27/17 08:00 95.7 90 19 117/66 (83) 90 06/27/17 04:00 99.4 88 20 135/74 (94) 95 06/27/17 00:00 98.8 86 20 137/ 96 06/26/17 20:00 98.9 80 18 115/56 (75) 96 06/26/17 16:46 82 06/26/17 16:00 96.8 89 18 111/67 (82) 96 06/26/17 12:00 98.4 100 19 119/67 (84) 92 I/O 06/26/17 06/26/17 06/26/17 06/27/17 06/27/17 06/27/17 06:59 14:59 22:59 06:59 14:59 22:59 Intake Total 567 ml 1305 ml 2520 ml 1100 ml Output Total 2050 ml 200 ml Balance 567 ml 1305 ml 470 ml 1100 ml -200 ml Intake Oral 1320 ml 0 ml IV Total 567 ml 1305 ml 1200 ml 1100 ml Output Urine Total 2050 ml 200 ml # Voids 5 8 7 # Bowel Movements 3 4 1 Result Diagram: 06/27/17 0531 06/27/17 0531 Objective Remarks GENERAL: This is a well-nourished, well-developed patient, in no apparent distress. CARDIOVASCULAR: Normal rate and regular rhythm without murmurs, gallops, or rubs. RESPIRATORY: Good respiratory efforts. Diminished breath sounds at the bases otherwise clear to auscultation bilaterally. GASTROINTESTINAL: Abdomen soft, non-tender, non-distended. Normal active bowel sounds MUSCULOSKELETAL: Extremities without cyanosis, or edema. NEURO: Alert & Oriented x4 to person, place, time, situation. Moves all ext x4 PSYCH: Appropriate mood and affect. A/P Problem List: (1) Sepsis ICD Code: A41.9 - Sepsis, unspecified organism Status: Acute (2) Urinary tract infection ICD Code: N39.0 - Urinary tract infection, site not specified Status: Acute (3) BPH (benign prostatic hyperplasia) ICD Code: N40.0 - Benign prostatic hyperplasia without lower urinary tract symptoms Status: Chronic (4) Hypophosphatemia ICD Code: E83.39 - Other disorders of phosphorus metabolism Status: Acute (5) Adrenal insufficiency ICD Code: E27.40 - Unspecified adrenocortical insufficiency Assessment and Plan 72 y/o male with a history of asthma, bph, and irregular heartbeat at times presented to the ED with complaints of feeling weak and falling multiple times at home. Patient has sepsis secondary to UTI. Sepsis secondary to UTI, WBC 21.1, HR 101, with abnormal UA. Urine grew Klebsiella. -Sepsis resolving. Urine grew Klebsiella. Status post vancomycin. Continue Oral cefuroxime. C. difficile colitis: - Continue IV Flagyl for now. Continue Lactinex. No significant improvement yet. - Continue IVF. Lung mass, discovered on CT CTA from [place] yesterday reviewed and shows a RU lobe mas 16 x 43 mm. -Patient wishes to have work up with lap maker outpatient in [place] Hypophosphatemia -Replace with IV -Cont to trend and replace as needed Adrenal insufficiency continue on his home medications for this therapy and occupational therapy to eval and treat BPH, chronic -Cont home medications Flomax DVT prophylaxis: Heparin Discharge Planning Pending improvement, need to see more improvement of C-diff. Problem Qualifiers (1) Sepsis: Qualified Codes: A41.9 - Sepsis, unspecified organism (2) Urinary tract infection: Qualified Codes: N30.01 - Acute cystitis with hematuria (3) BPH (benign prostatic hyperplasia): Qualified Codes: N40.1 - Benign prostatic hyperplasia with lower urinary tract symptoms; N39.43 - Post-void dribbling Juan Jose Austin MD Jun 27, 2017 11:50
[2017-06-27] MEDS ORDERED: SODIUM PHOSPHATE INJ 30 MMOL in SODIUM CHLOR 0.9% 250 ML INJ 250 ML IV ONE (13:00)
[2017-06-27] MEDS: MONTELUKAST SODIUM 10 MG TAB PO SCH (21:00)
[2017-06-27] MEDS: LATANOPROST 0.005% OPHT SOLN 2.5 ML BTL EACH EYE SCH (21:00)
[2017-06-27] MEDS: PANTOPRAZOLE SOD 40 MG DELAYED RELEASE TAB PO SCH (21:48)
[2017-06-28] VITALS (7 sets, daily range): BP systolic 112–142; BP diastolic 65–80; PULSE 77–90; RESP 16–22; TEMP 96.5–98.7; O2SAT 95–100
[2017-06-28] MEDS: metroNIDAZOLE 500 MG INJ 100 ML IV SCH ×3 (01:24→12:36)
[2017-06-28] MEDS: PROPAFENONE HCL 150 MG TAB PO SCH ×3 (05:46→22:38)
[2017-06-28] MEDS: D5-1/2 NS + KCL 20 MEQ INJ 1,000 ML IV SCH ×3 (05:47→21:09)
[2017-06-28 06:07] LABS: HEMATOCRIT 39.4 % (39.0-51.0); MEAN CELL VOLUME 91.9 FL (80.0-100.0); MEAN CORPUSCULAR HEMOGLOBIN 29.5 PG (27.0-34.0); MEAN CORPUSCULAR HGB CONC 32.1 % (32.0-36.0); PLATELET COUNT 253 TH/MM3 (150-450); RED BLOOD COUNT 4.29 MIL/MM3 (4.50-5.90); RED CELL DISTRIBUTION WIDTH 14.3 % (11.6-17.2); REVIEW FLAG FINAL; WHITE BLOOD COUNT 12.8 TH/MM3 (4.0-11.0)
[2017-06-28 06:21] LABS: BICARBONATE 32.1 MEQ/L (21.0-32.0); POTASSIUM 3.8 MEQ/L (3.5-5.1)
[2017-06-28] MEDS: SODIUM CHLORIDE 0.9% FLUSH 10 ML FLUSH IV FLUSH SCH ×2 (09:00→21:00)
[2017-06-28] MEDS ORDERED: SODIUM PHOSPHATE INJ 30 MMOL in SODIUM CHLOR 0.9% 250 ML INJ 250 ML IV ONE (09:30)
[2017-06-28] MEDS: CEFUROXIME AXETIL 500 MG TAB PO SCH ×2 (09:56→21:06)
[2017-06-28] MEDS: FLUDROCORTISONE ACETATE 0.1 MG TAB PO SCH (09:56)
[2017-06-28] MEDS: LACTOBACILLUS ACIDOPHILUS TAB PO SCH ×2 (09:56→21:06)
[2017-06-28] MEDS: DOCUSATE SODIUM 50 MG/SENNA 8.6 MG TAB PO SCH ×2 (09:56→21:00)
[2017-06-28] MEDS: TAMSULOSIN HCL 0.4 MG CAP PO SCH ×2 (09:56→21:07)
[2017-06-28] MEDS: CALCIUM/VITAMIN D 250 MG/125 U TAB PO SCH ×2 (09:56→21:07)
[2017-06-28] MEDS: HEPARIN SODIUM - SQ 10,000 UNITS/ML VIAL SQ SCH ×2 (09:57→21:07)
[2017-06-28] MEDS: predniSONE 10 MG TAB PO SCH (09:57)
[2017-06-28] MEDS: ASPIRIN EC 81 MG TABEC PO SCH (10:21)
--- NOTE | 2017-06-28 11:48 | HHI.PR ---
Subjective Remarks Patient reports is feeling better except for feeling weak. No diarrhea or bowel movement today yet. Objective Vitals Vital Signs Date Time Temp Pulse Resp B/P (MAP) Pulse Ox O2 Delivery O2 Flow Rate FiO2 06/28/17 08:00 98.4 81 22 142/74 (96) 97 06/28/17 04:00 96.5 77 18 127/65 (85) 96 06/28/17 00:00 97.2 77 18 112/67 (82) 98 06/27/17 20:00 73 06/27/17 20:00 97.2 81 18 114/63 (80) 98 06/27/17 20:00 Nasal Cannula 2.00 06/27/17 16:00 96.5 88 19 123/62 (82) 98 06/27/17 12:00 97.9 90 19 140/71 (94) 94 I/O 06/27/17 06/27/17 06/27/17 06/28/17 06/28/17 06/28/17 07:00 15:00 23:00 07:00 15:00 23:00 Intake Total 1100 ml Output Total 200 ml 325 ml Balance 900 ml -325 ml Intake Oral 0 ml IV Total 1100 ml Output Urine Total 200 ml 325 ml Bladder Scan Volume Amount 269 ml # Voids 7 2 # Bowel Movements 1 0 2 Result Diagram: 06/28/17 0506/28/17 05 Objective Remarks GENERAL: This is a well-nourished, well-developed patient, in no apparent distress. CARDIOVASCULAR: Normal rate and regular rhythm without murmurs, gallops, or rubs. RESPIRATORY: Good respiratory efforts. Diminished breath sounds at the bases otherwise clear to auscultation bilaterally. GASTROINTESTINAL: Abdomen soft, non-tender, non-distended. Normal active bowel sounds MUSCULOSKELETAL: Extremities without cyanosis, or edema. NEURO: Alert & Oriented x4 to person, place, time, situation. Moves all ext x4 but is generally weak. PSYCH: Appropriate mood and affect. A/P Problem List: (1) Sepsis ICD Code: A41.9 - Sepsis, unspecified organism Status: Acute (2) Urinary tract infection ICD Code: N39.0 - Urinary tract infection, site not specified Status: Acute (3) BPH (benign prostatic hyperplasia) ICD Code: N40.0 - Benign prostatic hyperplasia without lower urinary tract symptoms Status: Chronic (4) Hypophosphatemia ICD Code: E83.39 - Other disorders of phosphorus metabolism Status: Acute (5) Adrenal insufficiency ICD Code: E27.40 - Unspecified adrenocortical insufficiency Assessment and Plan 72 y/o male with a history of asthma, bph, and irregular heartbeat at times presented to the ED with complaints of feeling weak and falling multiple times at home. Patient has sepsis secondary to UTI. Sepsis secondary to UTI, WBC 21.1, HR 101, with abnormal UA. Urine grew Klebsiella. -Sepsis resolving. Urine grew Klebsiella. Status post vancomycin. Continue Oral cefuroxime. C. difficile colitis: - Improving. Switch to oral Flagyl. That Continue Lactinex. Lung mass, discovered on CT CTA from [place] yesterday reviewed and shows a RU lobe mas 16 x 43 mm. -Patient wishes to have work up with seaming inspector outpatient in [place] Hypophosphatemia -Replace with IV -Cont to trend and replace as needed Adrenal insufficiency continue on his home medications for this therapy and occupational therapy to eval and treat BPH, chronic -Cont home medications Flomax DVT prophylaxis: Heparin Discharge Planning Patient will need SNF. Possible discharge in 1-2 days. Problem Qualifiers (1) Sepsis: Qualified Codes: A41.9 - Sepsis, unspecified organism (2) Urinary tract infection: Qualified Codes: N30.01 - Acute cystitis with hematuria (3) BPH (benign prostatic hyperplasia): Qualified Codes: N40.1 - Benign prostatic hyperplasia with lower urinary tract symptoms; N39.43 - Post-void dribbling Juan Jose Austin MD Jun 28, 2017 11:48
[2017-06-28] MEDS: MONTELUKAST SODIUM 10 MG TAB PO SCH (21:00)
[2017-06-28] MEDS: metroNIDAZOLE 500 MG TAB PO SCH (21:05)
[2017-06-28] MEDS: PANTOPRAZOLE SOD 40 MG DELAYED RELEASE TAB PO SCH (21:06)
[2017-06-28] MEDS: LATANOPROST 0.005% OPHT SOLN 2.5 ML BTL EACH EYE SCH (21:08)
[2017-06-29] VITALS (12 sets, daily range): BP systolic 108–145; BP diastolic 68–80; PULSE 53–88; RESP 16–30; TEMP 96–97.8; O2SAT 95–98
[2017-06-29] MEDS: D5-1/2 NS + KCL 20 MEQ INJ 1,000 ML IV SCH ×2 (03:00→10:28)
[2017-06-29] MEDS ORDERED: RESP: ALBUTEROL 2.5 MG/IPRATROPIUM 0.5 MG NEB (SCH) NEB ONE (04:45)
[2017-06-29] MEDS ORDERED: methylPREDNISolone SOD SUCC 125 MG/2 ML VIAL IV PUSH ONE (05:00)
[2017-06-29] MEDS: PROPAFENONE HCL 150 MG TAB PO SCH ×3 (05:13→22:41)
[2017-06-29] MEDS: metroNIDAZOLE 500 MG TAB PO SCH ×3 (05:13→22:40)
[2017-06-29 05:20] LABS: BICARBONATE 35.4 MEQ/L (21.0-32.0); POTASSIUM 3.5 MEQ/L (3.5-5.1)
[2017-06-29 05:31] LABS: BLOOD GAS BASE EXCESS 7.3 mmol/L (-2-2); BLOOD GAS CARBOXYHEMOGLOBIN 1.1 % (0-4); BLOOD GAS HCO3 31 mmol/L (22-26); BLOOD GAS METHEMOGLOBIN 0.8 % (0-2); BLOOD GAS O2 HGB SATURATION 93 % (90-100); BLOOD GAS OXYGEN CONTENT 16.3 Vol % (12.0-20.0); BLOOD GAS PCO2 45 mmHg (38-42); BLOOD GAS PO2 72 mmHg (61-120); BLOOD GAS TOTAL HGB 12.5 G/DL (12.0-16.0); TEMP CORR TO 98.6
[2017-06-29 05:31] LABS: HEMATOCRIT 40.3 % (39.0-51.0); MEAN CELL VOLUME 91.7 FL (80.0-100.0); MEAN CORPUSCULAR HGB CONC 31.7 % (32.0-36.0); PLATELET COUNT 310 TH/MM3 (150-450); RED BLOOD COUNT 4.39 MIL/MM3 (4.50-5.90); RED CELL DISTRIBUTION WIDTH 14.4 % (11.6-17.2); REVIEW FLAG FINAL; WHITE BLOOD COUNT 13.9 TH/MM3 (4.0-11.0)
[2017-06-29 05:32] LABS: CRITICAL VALUE NO; OXYGEN DEVICE NASAL CANNULA
--- NOTE | 2017-06-29 05:32 | RADRPT ---
EXAM DATE/TIME: 06/29/2017 04:41 [facility] COMPARISON: CHEST SINGLE AP, June 23, 2017, 16:50. INDICATIONS : Short of breath MEDICAL HISTORY : Emphysema. Asthma. SURGICAL HISTORY : None. ENCOUNTER: Subsequent ACUITY: 1 week PAIN SCORE: 0/10 LOCATION: Bilateral chest FINDINGS: A single view of the chest demonstrates the lungs to be symmetrically aerated without evidence of mas s, infiltrate or effusion. The cardiomediastinal contours are unremarkable. Osseous structures are intact. CONCLUSION: Normal examination except for minimal atelectasis left mid lung zone and right medial apex. Vishnu Ness MD on June 29, 2017 at 5:30 Board Certified Radiologist. This report was verified electronically.
[2017-06-29 05:33] LABS: DRAW SITE RT RADIAL; LITER FLOW 3 L/M; NUMBER OF ARTERIAL PUNCTURES 1; STAT YES; ULNAR PULSE PRESENT
[2017-06-29] MEDS: HEPARIN SODIUM - SQ 10,000 UNITS/ML VIAL SQ SCH ×2 (08:21→22:40)
[2017-06-29] MEDS: LACTOBACILLUS ACIDOPHILUS TAB PO SCH ×2 (08:21→22:39)
[2017-06-29] MEDS: FLUDROCORTISONE ACETATE 0.1 MG TAB PO SCH (08:22)
[2017-06-29] MEDS: TAMSULOSIN HCL 0.4 MG CAP PO SCH ×2 (08:22→22:39)
[2017-06-29] MEDS: ASPIRIN EC 81 MG TABEC PO SCH (08:22)
[2017-06-29] MEDS: predniSONE 10 MG TAB PO SCH (08:22)
[2017-06-29] MEDS: SODIUM CHLORIDE 0.9% FLUSH 10 ML FLUSH IV FLUSH SCH ×2 (08:22→22:39)
[2017-06-29] MEDS: CALCIUM/VITAMIN D 250 MG/125 U TAB PO SCH ×2 (08:22→22:39)
[2017-06-29] MEDS: CEFUROXIME AXETIL 500 MG TAB PO SCH (08:22)
[2017-06-29] MEDS: DOCUSATE SODIUM 50 MG/SENNA 8.6 MG TAB PO SCH ×2 (08:23→21:00)
--- NOTE | 2017-06-29 12:03 | HHI.PR ---
Subjective Remarks Finally feeling better today. He ate his breakfast. Had one episode of diarrhea this morning. No abdominal pain. Overnight had worsening shortness of breath. States he has not been using his regular inhalers here. They have been on hold awaiting for authorization from pharmacy. Objective Vitals Vital Signs Date Time Temp Pulse Resp B/P (MAP) Pulse Ox O2 Delivery O2 Flow Rate FiO2 06/29/17 08:00 97.8 84 18 108/68 (81) 96 06/29/17 05:24 25 06/29/17 05:05 97 Nasal Cannula 2.00 06/29/17 04:50 97.2 82 30 130/80 (97) 95 06/29/17 04:00 97.7 82 30 130/80 (97) 95 06/29/17 00:00 97.4 76 16 116/70 (85) 98 06/28/17 20:00 77 06/28/17 20:00 Nasal Cannula 2.00 06/28/17 20:00 97.3 90 16 133/72 (92) 97 06/28/17 16:00 98.7 86 20 128/68 (88) 100 I/O 06/28/17 06/28/17 06/28/17 06/29/17 06/29/17 06/29/17 07:00 15:00 23:00 07:00 15:00 23:00 Intake Total 360 ml 600 ml Output Total 800 ml 375 ml Balance -440 ml 225 ml Intake Oral 360 ml IV Total 600 ml Output Urine Total 800 ml 375 ml # Voids 2 # Bowel Movements 2 Result Diagram: 06/29/17 0409 06/29/17 0409 Objective Remarks GENERAL: This is a well-nourished, well-developed patient, in no apparent distress. CARDIOVASCULAR: Normal rate and regular rhythm without murmurs, gallops, or rubs. RESPIRATORY: Good respiratory efforts. Diminished breath sounds at the bases otherwise clear to auscultation bilaterally. GASTROINTESTINAL: Abdomen soft, non-tender, non-distended. Normal active bowel sounds MUSCULOSKELETAL: Extremities without cyanosis, or edema. NEURO: Alert & Oriented x4 to person, place, time, situation. Moves all ext x4 but is generally weak. PSYCH: Appropriate mood and affect. A/P Problem List: (1) Sepsis ICD Code: A41.9 - Sepsis, unspecified organism Status: Acute (2) Urinary tract infection ICD Code: N39.0 - Urinary tract infection, site not specified Status: Acute (3) BPH (benign prostatic hyperplasia) ICD Code: N40.0 - Benign prostatic hyperplasia without lower urinary tract symptoms Status: Chronic (4) Hypophosphatemia ICD Code: E83.39 - Other disorders of phosphorus metabolism Status: Acute (5) Adrenal insufficiency ICD Code: E27.40 - Unspecified adrenocortical insufficiency Assessment and Plan 72 y/o male with a history of asthma, bph, and irregular heartbeat at times presented to the ED with complaints of feeling weak and falling multiple times at home. Patient has sepsis secondary to UTI. Sepsis secondary to UTI, WBC 21.1, HR 101, with abnormal UA. Urine grew Klebsiella. -Sepsis resolving. Urine grew Klebsiella. Status post vancomycin. Continue Oral cefuroxime. C. difficile colitis: - Improving. Switched to oral Flagyl. Continue Lactinex. Lung mass, discovered on CT CTA from [place] reviewed and shows a RU lobe mas 16 x 43 mm. -Patient wishes to have work up with plant sciences professor outpatient in [place] Hypophosphatemia -Replace with IV -Cont to trend and replace as needed Adrenal insufficiency continue on his home medications for this therapy and occupational therapy to eval and treat COPD: Chronic. Resume home dose Dulera and as needed Albuterol BPH, chronic -Cont home medications Flomax DVT prophylaxis: Heparin Discharge Planning Patient will need SNF. Possible discharge tomorrow if he continues to improve. Problem Qualifiers (1) Sepsis: Qualified Codes: A41.9 - Sepsis, unspecified organism (2) Urinary tract infection: Qualified Codes: N30.01 - Acute cystitis with hematuria (3) BPH (benign prostatic hyperplasia): Qualified Codes: N40.1 - Benign prostatic hyperplasia with lower urinary tract symptoms; N39.43 - Post-void dribbling Juan Jose Austin MD Jun 29, 2017 12:03
[2017-06-29] MEDS: RESP: ALBUTEROL 2.5 MG/3 ML NEB (PRN) NEB (12:52)
[2017-06-29] MEDS: RESP: ALBUTEROL 2.5 MG/IPRATROPIUM 0.5 MG NEB (SCH) NEB ×2 (17:04→19:45)
[2017-06-29] MEDS: MONTELUKAST SODIUM 10 MG TAB PO SCH (21:00)
[2017-06-29] MEDS: LATANOPROST 0.005% OPHT SOLN 2.5 ML BTL EACH EYE SCH (21:00)
[2017-06-29] MEDS: PANTOPRAZOLE SOD 40 MG DELAYED RELEASE TAB PO SCH (22:40)
[2017-06-30] VITALS (8 sets, daily range): BP systolic 133–152; BP diastolic 65–78; PULSE 58–74; RESP 16–18; TEMP 95.6–97.2; O2SAT 96–97
[2017-06-30] MEDS: RESP: ALBUTEROL 2.5 MG/3 ML NEB (PRN) NEB ×2 (00:38→22:46)
--- NOTE | 2017-06-30 05:38 | RADRPT ---
EXAM DATE/TIME: 06/30/2017 05:27 [facility] COMPARISON: No previous studies available for comparison. INDICATIONS : Stroke alert; Right arm weakness. RADIATION DOSE: 37.01 CTDIvol (mGy) This report was called by Dr Ness to <Barb>> at 0536 MEDICAL HISTORY : Chronic obstructive pulmonary disease. Cardiovascular disease Asthma. SURGICAL HISTORY : None. ENCOUNTER: Initial ACUITY: 1 day PAIN SCALE: 0/10 LOCATION: cranial TECHNIQUE: Multiple contiguous axial images were obtained of the head. Using automated exposure control and adj ustment of the mA and/or kV according to patient size, radiation dose was kept as low as reasonably a chievable to obtain optimal diagnostic quality images. DICOM format image data is available electro nically for review and comparison. FINDINGS: CEREBRUM: The ventricles are normal for age. No evidence of midline shift, mass lesion, hemorrhage or acute in farction. No extra-axial fluid collections are seen. POSTERIOR FOSSA: The cerebellum and brainstem are intact. The 4th ventricle is midline. The cerebellopontine angle i s unremarkable. EXTRACRANIAL: The visualized portion of the orbits is intact. SKULL: The calvaria is intact. No evidence of skull fracture. CONCLUSION: Normal examination. Vishnu Ness MD on June 30, 2017 at 5:33 Board Certified Radiologist. This report was verified electronically.
[2017-06-30 05:43] LABS: I-STAT POTASSIUM 3.7 MMOL/L (3.5-4.9)
[2017-06-30] MEDS: metroNIDAZOLE 500 MG TAB PO SCH ×3 (06:06→22:14)
[2017-06-30] MEDS: PROPAFENONE HCL 150 MG TAB PO SCH ×3 (06:07→22:15)
[2017-06-30 06:29] LABS: AUTOMATED NEUTROPHIL # 9.6 TH/MM3 (1.8-7.7); BASOPHIL % 0.1 % (0.0-2.0); EOSINOPHIL % 0.1 % (0.0-4.0); HEMATOCRIT 37.9 % (39.0-51.0); HEMO FLAGS DIFF FINAL; LYMPH % 4.5 % (9.0-44.0); LYMPHOCYTE # 0.5 TH/MM3 (1.0-4.8); MEAN CELL VOLUME 91.8 FL (80.0-100.0); MEAN CORPUSCULAR HGB CONC 32.7 % (32.0-36.0); MONO % 10.5 % (0.0-8.0); NEUT % 84.8 % (16.0-70.0); PLATELET COUNT 325 TH/MM3 (150-450); RED BLOOD COUNT 4.13 MIL/MM3 (4.50-5.90); RED CELL DISTRIBUTION WIDTH 14.9 % (11.6-17.2); WHITE BLOOD COUNT 11.3 TH/MM3 (4.0-11.0)
[2017-06-30 06:36] LABS: APTT (PATIENT) 27.3 SEC (24.3-30.1); PROTHROMBIN TIME - PATIENT 10.9 SEC (9.8-11.6)
[2017-06-30 06:39] LABS: ANION GAP 6 MEQ/L (5-15); BICARBONATE 32.7 MEQ/L (21.0-32.0); BLOOD UREA NITROGEN 7 MG/DL (7-18); CHLORIDE 104 MEQ/L (98-107); GLOMERULAR FILTRATION RATE 133 ML/MIN (>89); POTASSIUM 3.8 MEQ/L (3.5-5.1); SODIUM (NA) 143 MEQ/L (136-145)
[2017-06-30 06:46] LABS: CREATINE KINASE 21 U/L (39-308)
--- NOTE | 2017-06-30 07:35 | MB ---
cc: SARAH SANCHEZ MD DATE OF CONSULTATION: 06/30/2017 REASON FOR CONSULTATION: Stroke alert HISTORY OF PRESENT ILLNESS Mr. Cook is a 72-year-old male with a past medical history of asthma , BPH, irregular heart rate. He presented to the [facility] because of feeling weak and falling multiple times at home. He has been worked up by the internal medicine team and he was found to have sepsis, UTI, with electrolyte disturbances and positive for C diff colitis. A lung mass was discovered on CT scan. The nurse noted early this morning that the patient is unable to lift the right upper extremity as he used to and called it a stroke alert. During the encounter I assessed the patient and his right upper extremity. He can lift the right upper extremity at the shoulder area with the help of his other hand and he can maintain the right upper extremity up. He has mild 5-/5 shoulder abduction with notable pain that has been ongoing for two days in that shoulder. On examination there is a crepitus on the right shoulder. No headache, no double vision. No blurred vision. No facial asymmetry. No speech difficulty. No involvement of the extremities was noted. NIH stroke scale is zero. Head CT scan with no acute intracranial abnormality. Thus the patient is not a candidate for TPA or IV TPA REVIEW OF SYSTEMS 12-point review of systems is negative except what is stated in the HPI. PAST MEDICAL HISTORY: Irregular heartbeat, asthma, BPH. PAST SURGICAL HISTORY: Lung biopsy with benign results. MEDICATIONS: 1. Fludrocortisone. 2. Rabeprazole. 3. Montelukast. 4. Propafenone. 5. Theophylline 6. Ecotrin 7. Prednisone. 8. Tamsulosin 9. Asmanex. ALLERGIES: No known allergies. FAMILY HISTORY: Mother with heart disease. Father with cancer. SOCIAL HISTORY: Denies alcohol, tobacco or illicit drug abuse. PHYSICAL EXAMINATION: General: Awake, alert, anxious, in mild distress. HEENT: Atraumatic, normocephalic. Bilateral injected eyes, intact hearing. Intact vision. Trachea in the midline. No JVD. Cardiovascular: Regular rate and rhythm. No murmurs. Respiratory: Clear to auscultation. Diminished breath sounds bilaterally. Gastrointestinal: Soft abdomen. No tenderness. Musculoskeletal: No clubbing, no cyanosis or edema. Right shoulder mild limitation of due to pain. Neurological: Awake, alert, oriented to time, person and place. No dysphasia or dysarthria. Cranial nerves II-XII are grossly intact. Bilateral fine hand tremor. Motor examination 5/5 throughout but with 5-/5 right shoulder abduction , particularly on abduction from the neutral position to 90 degrees. Sensation is intact throughout, [id number], [id number]-[id number] are intact. Psychological: Anxious. Intact mood and behavior. LABORATORY DATA: White blood cells 30.9, hemoglobin 12.8, platelet 310. Chemistry: Sodium 141, potassium 97, anion gap 4, BUN 5, creatinine 0.59, phosphorus 2.2, calcium 7.9 , INR 1, DIAGNOSTIC IMAGING: - Head CT scan without contrast with no acute intracranial abnormality. DIAGNOSTIC IMPRESSION: Stroke alert / TIA. The patient is deemed not a candidate for IV TPA given the NIH stroke scale of zero. PLAN: 1. Will do further stroke workup as per protocol. 2. MRI brain. 3. Carotid ultrasound 4. Aspirin 81 mg 5. DVT prophylaxis. 6. GI prophylaxis 7. Discussed case with family and RN. Thank you for the opportunity to participate in the care of your patient. MD JAMAAL Barney/JA /6:02 AM /6:32 AM MTDIssac
[2017-06-30] MEDS: TAMSULOSIN HCL 0.4 MG CAP PO SCH ×2 (07:52→22:15)
[2017-06-30] MEDS: ASPIRIN EC 81 MG TABEC PO SCH (07:53)
[2017-06-30] MEDS: HEPARIN SODIUM - SQ 10,000 UNITS/ML VIAL SQ SCH ×2 (07:53→22:15)
[2017-06-30] MEDS: LACTOBACILLUS ACIDOPHILUS TAB PO SCH ×2 (07:53→22:14)
[2017-06-30] MEDS: FLUDROCORTISONE ACETATE 0.1 MG TAB PO SCH (07:53)
[2017-06-30] MEDS: CALCIUM/VITAMIN D 250 MG/125 U TAB PO SCH ×2 (07:53→22:15)
[2017-06-30] MEDS: predniSONE 10 MG TAB PO SCH (07:53)
[2017-06-30] MEDS: MOMETASONE INH SCH ×2 (07:54→21:00)
[2017-06-30] MEDS: FORMOTEROL INH SCH ×2 (07:54→21:00)
[2017-06-30] MEDS: SODIUM CHLORIDE 0.9% FLUSH 10 ML FLUSH IV FLUSH SCH ×2 (07:54→22:16)
[2017-06-30] MEDS: DOCUSATE SODIUM 50 MG/SENNA 8.6 MG TAB PO SCH ×2 (07:55→22:15)
[2017-06-30] MEDS: RESP: ALBUTEROL 2.5 MG/IPRATROPIUM 0.5 MG NEB (SCH) NEB ×4 (08:57→19:19)
--- NOTE | 2017-06-30 10:08 | HHI.PR ---
Subjective Remarks Stroke alert called and the patient overnight for reported inability to lift the right arm. He was assessed by neurology. No CP indicated. Stroke workup ongoing. Patient reports is feeling okay today. No focal neurological deficits. Objective Vitals Vital Signs Date Time Temp Pulse Resp B/P (MAP) Pulse Ox O2 Delivery O2 Flow Rate FiO2 06/30/17 08:58 96 Nasal Cannula 3.00 06/30/17 08:00 95.9 72 16 143/70 (94) 97 06/30/17 04:00 95.9 63 18 152/73 (99) 97 06/30/17 00:00 97.2 69 18 140/78 (98) 97 06/29/17 22:00 53 06/29/17 20:15 Nasal Cannula 3.00 06/29/17 20:00 96.4 76 18 127/74 (91) 97 06/29/17 19:48 98 Nasal Cannula 2.00 06/29/17 17:06 97 Nasal Cannula 2.00 06/29/17 16:00 96.0 88 18 143/75 (97) 97 06/29/17 12:00 97.3 78 17 145/79 (101) 97 I/O 06/29/17 06/29/17 06/29/17 06/30/17 06/30/17 06/30/17 07:00 15:00 23:00 07:00 15:00 23:00 Intake Total 600 ml 1202 ml 0 ml Output Total 375 ml 850 ml 300 ml Balance 225 ml 352 ml -300 ml Intake Oral 1200 ml IV Total 600 ml 2 ml 0 ml Output Urine Total 375 ml 850 ml 300 ml # Bowel Movements 2 Result Diagram: 06/30/17 0515 06/30/17 0515 Objective Remarks GENERAL: This is a well-nourished, well-developed patient, in no apparent distress. CARDIOVASCULAR: Normal rate and regular rhythm without murmurs, gallops, or rubs. RESPIRATORY: Good respiratory efforts. Diminished breath sounds at the bases otherwise clear to auscultation bilaterally. GASTROINTESTINAL: Abdomen soft, non-tender, non-distended. Normal active bowel sounds MUSCULOSKELETAL: Extremities without cyanosis, or edema. NEURO: Alert & Oriented x4 to person, place, time, situation. Moves all ext x4 but is generally weak. PSYCH: Appropriate mood and affect. A/P Problem List: (1) Sepsis ICD Code: A41.9 - Sepsis, unspecified organism Status: Acute (2) Urinary tract infection ICD Code: N39.0 - Urinary tract infection, site not specified Status: Acute (3) BPH (benign prostatic hyperplasia) ICD Code: N40.0 - Benign prostatic hyperplasia without lower urinary tract symptoms Status: Chronic (4) Hypophosphatemia ICD Code: E83.39 - Other disorders of phosphorus metabolism Status: Acute (5) Adrenal insufficiency ICD Code: E27.40 - Unspecified adrenocortical insufficiency Assessment and Plan 72 y/o male with a history of asthma, bph, and irregular heartbeat at times presented to the ED with complaints of feeling weak and falling multiple times at home. Patient has sepsis secondary to UTI. Sepsis secondary to UTI, WBC 21.1, HR 101, with abnormal UA. Urine grew Klebsiella. -Sepsis resolved. Urine grew Klebsiella. Status post vancomycin. Patient received a total of 7 days of IV and oral antibiotics. Discontinue cefuroxime. C. difficile colitis: - Improving. Continue oral Flagyl. Continue Lactinex. Stroke alert/TIA: Stroke alert called and the patient overnight for reported inability to lift the right arm. He was assessed by neurology. No TPA indicated. Stroke workup ongoing. -Follow MRI, continue aspirin. Lung mass, discovered on CT CTA from [place] reviewed and shows a RU lobe mas 16 x 43 mm. -Patient wishes to have work up with research physicist outpatient in [place] Hypophosphatemia -Replace with IV -Cont to trend and replace as needed Adrenal insufficiency continue on his home medications for this therapy and occupational therapy to eval and treat COPD: Chronic. Resume home dose Dulera and as needed Albuterol BPH, chronic -Cont home medications Flomax DVT prophylaxis: Heparin Discharge Planning Patient will need SNF. Probable discharge tomorrow if he continues to improve. Problem Qualifiers (1) Sepsis: Qualified Codes: A41.9 - Sepsis, unspecified organism (2) Urinary tract infection: Qualified Codes: N30.01 - Acute cystitis with hematuria (3) BPH (benign prostatic hyperplasia): Qualified Codes: N40.1 - Benign prostatic hyperplasia with lower urinary tract symptoms; N39.43 - Post-void dribbling Juan Jose Austin MD Jun 30, 2017 10:08
--- NOTE | 2017-06-30 11:48 | RADRPT ---
EXAM DATE/TIME: 06/30/2017 11:05 [facility] COMPARISON: CT BRAIN W/O CONTRAST, June 30, 2017, 5:27. INDICATIONS : Pain in right arm, difficulty with moving MEDICAL HISTORY : Emphysema, Asthma SURGICAL HISTORY : Cataracts ENCOUNTER: Subsequent ACUITY: 1 week PAIN SCORE: 0/10 LOCATION: cranial TECHNIQUE: Multiplanar, multisequence MRI of the brain was performed without contrast. FINDINGS: There is motion identified throughout the exam. This does not significantly limit evaluation. CEREBRUM: The ventricles are normal for age. No evidence of midline shift, mass lesion, hemorrhage or acute in farction. No extraaxial fluid collections are seen. The pituitary gland and suprasellar cistern are normal in configuration. WHITE MATTER: No significant signal abnormalities are seen in the white matter. POSTERIOR FOSSA: The cerebellum and brainstem are intact. The 4th ventricle is midline. The cerebellopontine angle is unremarkable. The cerebellar tonsils are normal in position. DIFFUSION IMAGING: No focal areas of restricted diffusion are seen. No evidence of acute infarction. EXTRACRANIAL: The visualized portions of the orbits and paranasal sinuses are unremarkable. CONCLUSION: No acute disease. Sharon Burgess MD on June 30, 2017 at 11:45 Board Certified Radiologist. This report was verified electronically.
--- NOTE | 2017-06-30 11:49 | EKG ---
Date Performed: 06/30/2017 Time Performed: 06:30:36 PTAGE: 72 years EKG: Sinus bradycardia. Normal ECG except for rate PREVIOUS TRACING : 06/23/2017 16.02 Compared to the previous tracing rate slower DOCTOR: Simón Nazario Interpretating Date/Time 06/30/2017 11:47:24
[2017-06-30] MEDS: MONTELUKAST SODIUM 10 MG TAB PO SCH (22:15)
[2017-06-30] MEDS: PANTOPRAZOLE SOD 40 MG DELAYED RELEASE TAB PO SCH (22:15)
[2017-06-30] MEDS: LATANOPROST 0.005% OPHT SOLN 2.5 ML BTL EACH EYE SCH (22:17)
--- NOTE | 2017-06-30 22:44 | RADRPT ---
EXAM DATE/TIME: 06/30/2017 21:17 [facility] COMPARISON: No previous studies available for comparison. INDICATIONS : Cerebrovascular accident. MEDICAL HISTORY : Heart rhythm problems.COPD. Asthma. SURGICAL HISTORY : Cataracts. ENCOUNTER: Initial ACUITY: 4-6 days PAIN SCORE: 0/10 LOCATION: Bilateral neck PEAK SYSTOLIC VELOCITIES (cm/sec): ICA/CCA RATIO: Right: 1.2 Left: 1.1 ICA: Right: 58 Left: 64 CCA: Right: 119 Left: 80 ECA: Right: 65 Left: 87 VERTEBRAL: Right: 51 antegrade Left: 38 antegrade Elevated flow velocities and ICA/CCA ratios have been found to correlate with increased degrees of vessel stenosis, calculated as percentage of diameter relative to a normal segment of distal ICA/CCA FINDINGS: RIGHT CAROTID: No significant stenosis is visualized. The waveforms are within normal limits. LEFT CAROTID: No significant stenosis is visualized. The waveforms are within normal limits. VERTEBRAL ARTERIES: Antegrade flow is seen in both vertebral arteries. MISCELLANEOUS: None. CONCLUSION: No hemodynamically significant stenosis. Mark Koroma MD on June 30, 2017 at 22:42 Board Certified Radiologist. This report was verified electronically.
[2017-07-01] VITALS: BP 148/70; PULSE 67; RESP 18; TEMP 96.8; O2SAT 97
[2017-07-01] MEDS: RESP: ALBUTEROL 2.5 MG/3 ML NEB (PRN) NEB (02:47)
[2017-07-01 04:00] VITALS: BP 151/75; PULSE 66; RESP 18; TEMP 96.2; O2SAT 96
[2017-07-01] MEDS: PROPAFENONE HCL 150 MG TAB PO SCH ×2 (05:34→15:07)
[2017-07-01] MEDS: metroNIDAZOLE 500 MG TAB PO SCH ×2 (05:34→15:06)
[2017-07-01 08:00] VITALS: BP 152/74; PULSE 74; RESP 22; TEMP 97.6; O2SAT 97
[2017-07-01] MEDS: RESP: ALBUTEROL 2.5 MG/IPRATROPIUM 0.5 MG NEB (SCH) NEB ×3 (08:07→15:55)
[2017-07-01 08:09] VITALS: O2SAT 98
[2017-07-01] MEDS: FORMOTEROL INH SCH (09:00)
[2017-07-01] MEDS: DOCUSATE SODIUM 50 MG/SENNA 8.6 MG TAB PO SCH (09:00)
[2017-07-01] MEDS: MOMETASONE INH SCH (09:00)
[2017-07-01] MEDS: CALCIUM/VITAMIN D 250 MG/125 U TAB PO SCH (09:33)
[2017-07-01] MEDS: ASPIRIN EC 81 MG TABEC PO SCH (09:34)
[2017-07-01] MEDS: LACTOBACILLUS ACIDOPHILUS TAB PO SCH (09:34)
[2017-07-01] MEDS: predniSONE 10 MG TAB PO SCH (09:35)
[2017-07-01] MEDS: HEPARIN SODIUM - SQ 10,000 UNITS/ML VIAL SQ SCH (09:35)
[2017-07-01] MEDS: SODIUM CHLORIDE 0.9% FLUSH 10 ML FLUSH IV FLUSH SCH (09:36)
[2017-07-01] MEDS: FLUDROCORTISONE ACETATE 0.1 MG TAB PO SCH (09:36)
[2017-07-01] MEDS: TAMSULOSIN HCL 0.4 MG CAP PO SCH (09:40)
[2017-07-01] MEDS ORDERED: ALBU0.08 NEB (10:21)
[2017-07-01] MEDS ORDERED: LACT PO (10:21)
[2017-07-01] MEDS ORDERED: METR-1 PO (10:21)
--- NOTE | 2017-07-01 10:28 | HHI.DS ---
Discharge Summary Admission Date Jun 23, 2017 at 19:30 Discharge Date: Jul 01, 2017 Admitting Diagnosis Sepsis, UTI (1) Sepsis ICD Code: A41.9 - Sepsis, unspecified organism Status: Acute (2) Urinary tract infection ICD Code: N39.0 - Urinary tract infection, site not specified Status: Acute (3) BPH (benign prostatic hyperplasia) ICD Code: N40.0 - Benign prostatic hyperplasia without lower urinary tract symptoms Status: Chronic (4) Hypophosphatemia ICD Code: E83.39 - Other disorders of phosphorus metabolism Status: Acute (5) Adrenal insufficiency ICD Code: E27.40 - Unspecified adrenocortical insufficiency (6) C. difficile colitis ICD Code: A04.7 - Enterocolitis due to Clostridium difficile Procedures None Brief History - From Admission History of present illness from the admitting physician 72 y/o male with a history of asthma, bph, and irregular heartbeat at times presented to the ED with complaints of feeling weak and falling multiple times at home. Patient was admitted yesterday in [place] for complaints of chest pain, he was worked up and found to have a negative stress test. Today he began to feel very weak and fell at least 10 times at home. He had associated dizziness prior to his falls. He denies hitting his head or any LOC. He also complains of burning sensation with urination for the last 2 days. He denies any fever, chills, chest pain, or sob. On CTA yesterday he was found to have a lung mass, and wishes to see his bakery manager in [place] for work up as outpatient. CBC/BMP: 06/30/17 0515 06/30/17 0515 Significant Findings Laboratory Tests Test 06/29/17 04:09 06/29/17 05:17 06/30/17 05:15 White Blood Count 13.9 TH/MM3 (4.0-11.0) 11.3 TH/MM3 (4.0-11.0) Red Blood Count 4.39 MIL/MM3 (4.50-5.90) 4.13 MIL/MM3 (4.50-5.90) Hemoglobin 12.8 GM/DL (13.0-17.0) 12.4 GM/DL (13.0-17.0) Mean Corpuscular Hemoglobin Concent 31.7 % (32.0-36.0) Blood Urea Nitrogen 5 MG/DL (7-18) Creatinine 0.59 MG/DL (0.60-1.30) Calcium Level 7.9 MG/DL (8.5-10.1) 8.2 MG/DL (8.5-10.1) Carbon Dioxide Level 35.4 MEQ/L (21.0-32.0) 32.7 MEQ/L (21.0-32.0) Anion Gap 4 MEQ/L (5-15) Phosphorus Level 2.2 MG/DL (2.5-4.9) Blood Gas HCO3 31 mmol/L (22-26) Blood Gas Base Excess 7.3 mmol/L (-2-2) Arterial Blood pH 7.46 (7.380-7.420) Arterial Blood Partial Pressure CO2 45 mmHg (38-42) Hematocrit 37.9 % (39.0-51.0) Bedside Hematocrit 36.0 % (38.0-51.0) Neutrophils (%) (Auto) 84.8 % (16.0-70.0) Lymphocytes (%) (Auto) 4.5 % (9.0-44.0) Monocytes (%) (Auto) 10.5 % (0.0-8.0) Neutrophils # (Auto) 9.6 TH/MM3 (1.8-7.7) Lymphocytes # (Auto) 0.5 TH/MM3 (1.0-4.8) Monocytes # (Auto) 1.2 TH/MM3 (0-0.9) Bedside Chloride 97 MMOL/L (98-109) Bedside Blood Urea Nitrogen 6 MG/DL (8-26) Bedside Creatinine 0.6 MG/DL (0.8-1.3) Total Creatine Kinase 21 U/L (39-308) Troponin I LESS THAN 0.02 NG/ML Imaging Last Impressions Head CT 06/30/17 0000 Signed Impressions: Service Date/Time: Friday, June 30, 2017 05:27 - CONCLUSION: Normal examination. Vishnu Ness MD Carotid Artery Ultrasound 06/30/17 0000 Signed Impressions: Service Date/Time: Friday, June 30, 2017 21:17 - CONCLUSION: No hemodynamically significant stenosis. Mark Koroma MD Brain MRI 06/30/17 0000 Signed Impressions: Service Date/Time: Friday, June 30, 2017 11:05 - CONCLUSION: No acute disease. Sharon Burgess MD Chest X-Ray 06/29/17 0000 Signed Impressions: Service Date/Time: Thursday, June 29, 2017 04:41 - CONCLUSION: Normal examination except for minimal atelectasis left mid lung zone and right medial apex. Vishnu Ness MD PE at Discharge GENERAL: This is a well-nourished, well-developed patient, in no apparent distress. CARDIOVASCULAR: Normal rate and regular rhythm without murmurs, gallops, or rubs. RESPIRATORY: Good respiratory efforts. Diminished breath sounds at the bases otherwise clear to auscultation bilaterally. GASTROINTESTINAL: Abdomen soft, non-tender, non-distended. Normal active bowel sounds MUSCULOSKELETAL: Extremities without cyanosis, or edema. NEURO: Alert & Oriented x4 to person, place, time, situation. Moves all ext x4 but is generally weak. PSYCH: Appropriate mood and affect. Pt update on day of discharge Patient reports he is feeling much better. Stool becoming more formed. No shortness of breath or chest pain. MRI was negative for acute stroke. Hospital Course 72 y/o male with a history of asthma, bph, and irregular heartbeat at times presented to the ED with complaints of feeling weak and falling multiple times at home. Patient has sepsis secondary to UTI. He also developed C. difficile colitis during the course of hospitalization. The patient was also found to have a lung mass which he elected to have workup at his home town in [place]. Evaluation and treatment course detailed below: Sepsis secondary to UTI, WBC 21.1, HR 101, with abnormal UA on admission. Urine grew Klebsiella. Patient initially treated with vancomycin. He was transitioned to oral antibiotics with cefuroxime. He completed antibiotics course. Sepsis resolved. C. difficile colitis: Patient treated with IV Flagyl. He improved and was transitioned to oral Flagyl. He is to continue treatment with Flagyl and Lactinex. Right arm weakness: History of problems: The patient on the night of 06/29/17 for right arm weakness. He was evaluated by neurology. His symptoms completely resolved. Head CT was normal. An MRI was negative for acute stroke. Patient to continue on aspirin. Lung mass, discovered on CT CTA from [place] reviewed and shows a RU lobe mas 16 x 43 mm. -Patient wishes to have work up with bakery manager outpatient in [place] Hypophosphatemia -Replaced Adrenal insufficiency continue on his home medications COPD: Chronic. Resume home dose Dulera and as needed Albuterol BPH, chronic -Cont home medications Flomax The patient's medical conditions improved. However he remains deconditioned and needed rehabilitation at a SNF. He is discharged to SNF. Pt Condition on Discharge: Good Discharge Disposition: Discharge to SNF Discharge Time: > 30 minutes Discharge Instructions DIET: Follow Instructions for: Heart Healthy Diet Activities you can perform: Regular-No Restrictions New Medications: Albuterol Neb (Albuterol Neb) 2.5 Mg/3 Ml Neb 2.5 MG NEB Q4HR NEB PRN for SHORTNESS OF BREATH for 30 Days, NEBULE Lactobacillus Acidophilus (Acidophilus/l-Sporogenes) 1 Tab Tab 1 TAB PO Q12HR for 30 Days, TAB Metronidazole (Flagyl) 500 Mg Tab 500 MG PO Q8HR for 10 Days, TAB Continued Medications: Aspirin DR (Ecotrin Low Strength) 81 Mg Tabdr 81 MG PO DAILY, #30 TAB 0 Refills Calcium Carbonate-Cholecalciferol (Os-Marko Calcium + D3) 500-200 Mg-Unit Tab 1 TAB PO BID for Calcium Supplement, TAB 0 Refills Fludrocortisone (Fludrocortisone) 0.1 Mg Tab 0.1 MG PO DAILY, #30 TAB 0 Refills Latanoprost Opth Drops (Latanoprost Opth Drops) 0.005% Drops 1 DROP EACH EYE HS for Glaucoma, #2.5 ML 0 Refills Refrigerate until opened. Mometasone-Formoterol 120 Act Inh (Dulera 120 Act Inh) 200-5 Mcg/Act Inh 2 PUFF INH BID for Asthma Management, #1 INHALER 0 Refills Montelukast (Montelukast) 10 Mg Tab 10 MG PO HS, #30 TAB 0 Refills Prednisone (Prednisone) 10 Mg Tab 15 MG PO DAILY, TAB 0 Refills Propafenone (Propafenone) 150 Mg Tab 225 MG PO Q8HR for Regulate Heart Beat, #90 TAB 0 Refills Rabeprazole (Rabeprazole) 20 Mg Tab 20 MG PO HS for Reflux, #30 TAB 0 Refills Tamsulosin (Tamsulosin) 0.4 Mg Cap 0.4 MG PO BID for Manage Prostate Problems, #30 CAP 0 Refills Theophylline ER 12 HR (Theophylline ER 12 HR) 200 Mg Tab 200 MG PO Q12H, #60 TAB 0 Refills Discontinued Medications: Mometasone 120 Act Inh (Asmanex 120 Act Twisthaler) 220 Mcg/Act Inh 1 PUFF INH BID for Asthma Management, #1 INHALER 0 Refills Juan Jose Austin MD Jul 01, 2017 10:28
[2017-07-01 12:00] VITALS: BP 105/58; PULSE 97; RESP 20; TEMP 97.9; O2SAT 96
--- NOTE | 2017-07-01 20:39 | ECHRPT ---
Indication: CVA/TIA CONCLUSIONS Normal left ventricular size. Wall thickness is normal. The left ventricular systolic function is low normal with an estimated ejection fraction in the rang e of 50- 55%. Doppler parameters are consistent with impaired left ventricular relaxtion (grade 1 diastolic dysfun ction). Mild mitral valve regurgitation. Aortic valve sclerosis is present. There is trace tricuspid valve regurgitation. BP: / HR: Rhythm: Sinus MEASUREMENTS (Male / Female) Normal Values Technical Quality:Fair 2D ECHO LV Diastolic Diameter PLAX 4.8 cm 4.2 - 5.9 / 3.9 - 5.3 cm LV Systolic Diameter PLAX 3.7 cm IVS Diastolic Thickness 1.0 cm 0.6 - 1.0 / 0.6 - 0.9 cm LVPW Diastolic Thickness 1.0 cm 0.6 - 1.0 / 0.6 - 0.9 cm LV Relative Wall Thickness 0.4 LVOT Diameter 2.1 cm Aortic Root Diameter 3.1 cm LA Systolic Diameter LX 2.3 cm 3.0 - 4.0 / 2.7 - 3.8 cm M-MODE AV Cusp Separation MM 2.0 cm DOPPLER AV Peak Velocity 146.0 cm/s AV Peak Gradient 8.5 mmHg AV Mean Gradient 4.0 mmHg AV Velocity Time Integral 22.5 cm LVOT Peak Velocity 82.0 cm/s LVOT Peak Gradient 2.7 mmHg LVOT Velocity Time Integral 11.9 cm AV Area Cont Eq vti 1.8 cm AV Area Cont Eq pk 1.9 cm Mitral E Point Velocity 56.3 cm/s Mitral A Point Velocity 79.0 cm/s Mitral E to A Ratio 0.7 LV E' Lateral Velocity 6.4 cm/s Mitral E to LV E' Lateral Ratio 8.8 LV E' Septal Velocity 5.7 cm/s Mitral E to LV E' Septal Ratio 10.0 TR Peak Velocity 239.0 cm/s TR Peak Gradient 22.8 mmHg PV Peak Velocity 102.0 cm/s PV Peak Gradient 4.2 mmHg FINDINGS LEFT VENTRICLE Normal left ventricular size. Wall thickness is normal. The left ventricular systolic function is low normal with an estimated ejection fraction in the rang e of 50- 55%. Doppler parameters are consistent with impaired left ventricular relaxtion (grade 1 diastolic dysfun ction). RIGHT VENTRICLE Normal right ventricular size and systolic function. LEFT ATRIUM The left atrial size is normal. RIGHT ATRIUM The right atrium is not well visualized. ATRIAL SEPTUM The interatrial septum not well visualized. AORTA The aortic root and proximal ascending aorta are not well visualized. MITRAL VALVE Structurally normal mitral valve. Mild mitral valve regurgitation. AORTIC VALVE Aortic valve sclerosis is present. No aortic valve regurgitation. No aortic valve stenosis. TRICUSPID VALVE Structurally normal tricuspid valve. There is trace tricuspid valve regurgitation. Normal estimated pulmonary pressures. PULMONARY VALVE The pulmonary valve is not well visualized. VESSELS The inferior vena cava is normal in size. There is less than 50% respiratory change in dimension of the inferior vena cava (abnormal). PERICARDIUM No pericardial effusion. Simón Nazario MD, FACC (Electronically Signed) Final Date:01 July 2017 20:38
== END 2017-07-01 16:04 | DRG 872 ==
LOC: NEPE 15:42 → NEDA 19:30 → N07B 23:47
PROVIDERS: ADMIT Family Medicine; ATTEND Family Medicine
DX: A41.9 Sepsis, unspecified organism (principal); A04.7 Enterocolitis due to Clostridium difficile; E27.40 Unspecified adrenocortical insufficiency; E83.39 Other disorders of phosphorus metabolism; N39.0 Urinary tract infection, site not specified; B96.1 Klebsiella pneumoniae [K. pneumoniae] as the cause of diseases classified elsewhere; N40.0 Benign prostatic hyperplasia without lower urinary tract symptoms; R53.1 Weakness; Z91.81 History of falling; R91.8 Other nonspecific abnormal finding of lung field; J44.9 Chronic obstructive pulmonary disease, unspecified
CPT/HCPCS: 36600; 70450; 70551; 71010; 71275; 78452; 80048; 80053; 80198; 81001; 82435; 82550; 82552; 82565; 82805; 82947; 83036; 83605; 83690; 83735; 83880; 84100; 84132; 84295; 84439; 84443; 84484; 84520; 85007; 85025; 85027; 85384; 85610; 85730; 86850; 86900; 86901; 87040; 87077; 87086; 87186; 87493; 93005; 93017; 93306; 93880; 94640; 94664; 96361; 96365; 96366; 96375; A9502; G0378; J1644; J2270; J2405; J2543; J2785; J2930; J3370; J3480; J7030; J7050; J7512; J7613; Q9967

== ENCOUNTER 2017-07-29 10:33 | Inpatient (IN) | payer MEDICARE ==
[2017-07-29] VITALS (8 sets, daily range): BP systolic 109–121; BP diastolic 58–71; PULSE 85–104; RESP 16–17; TEMP 97.2–98.1; O2SAT 94–98
[~2017-07-29] VITALS: Ht 177.8 cm; Wt 68.3 kg
[~2017-07-29 10:33] MED LIST changes: +ALBU0.08 NEB; -ASMA220A INH; +LACT PO; +METR-1 PO
[2017-07-29] MEDS ORDERED: SODIUM CHLORIDE 0.9% FLUSH 10 ML FLUSH IVF PRN (10:45)
--- NOTE | 2017-07-29 11:22 | PD ---
HPI Chief Complaint: Cardiac Complaint Time Seen by Provider: 11:03 Travel History International Travel<30 days: No Contact w/Intl Traveler<30days: No Traveled to known affect area: No History of Present Illness HPI 72-year-old male presents emergency Department with tachycardia and shortness of breath. Patient was sent here from rehabilitation facility for evaluation of an abnormal EKG he had done on Saturday. I did discuss with Syeda HAYNES at the rehabilitation facilities and she states that he had a little of ST depression in precordial leads. The EKG was run because the patient had an episode of tachycardia. He was sinus and was started on digoxin for rate control. The patient denies any chest pain. He has an extended history of being admitted for UTI with sepsis complicated by C. difficile infection. He's been rehabilitating his prolonged hospitalization has been nearly bedbound. No history of blood clots in his legs or his chest before and he has not been receiving any Lovenox shots while in the rehabilitation facility. Symptoms been present for the past week gradually worsening. PFSH Past Medical History Hx Anticoagulant Therapy: Yes Asthma: Yes Blood Disorders: No Heart Rhythm Problems: Yes Cancer: No Cardiac Catheterization: No Cardiovascular Problems: Yes High Cholesterol: No Chest Pain: Yes (jun 2017) Congestive Heart Failure: No COPD: Yes Diabetes: No Endocrine: No Genitourinary: Yes Immune Disorder: No Musculoskeletal: No Neurologic: No Psychiatric: No Reproductive: No Respiratory: Yes Sleep Apnea: No Influenza Vaccination: No Past Surgical History Coronary Artery Bypass Graft: No Eye Surgery: Yes (cataracts) Other Surgery: No Social History Alcohol Use: No Tobacco Use: No Substance Use: No Allergies-Medications (Allergen,Severity, Reaction): Coded Allergies: No Known Allergies (Verified Allergy, Unknown, 07/29/17) Reported Meds & Prescriptions Reported Meds & Active Scripts Active Albuterol Neb (Albuterol Sulfate) 2.5 Mg/3 Ml Neb 2.5 Mg NEB Q4HR NEB PRN 30 Days Reported Meclizine (Meclizine HCl) 25 Mg Tab 25 Mg PO Q8HR PRN Tylenol (Acetaminophen) 325 Mg Tab 650 Mg PO Q4H PRN Trazodone (Trazodone HCl) 50 Mg Tab 25 Mg PO HS Multi-Vitamin/Minerals (Multiple Vitamins W/ Minerals) 1 Tab Tab 1 Tab PO DAILY Diff-Stat (Probiotic Product) 471 Mg Cap 1 Cap PO QID 14 Days Remeron (Mirtazapine) 15 Mg Tab 15 Mg PO HS Magnesium Oxide 500 Mg Tab 500 Mg PO DAILY Prednisone 5 Mg Tab 15 Mg PO DAILY Latanoprost Opth Drops (Latanoprost) 0.005% Drops 1 Drop EACH EYE HS Refrigerate until opened. Fludrocortisone (Fludrocortisone Acetate) 0.1 Mg Tab 0.1 Mg PO DAILY Rabeprazole (Rabeprazole Sodium) 20 Mg Tab 20 Mg PO HS Montelukast (Montelukast Sodium) 10 Mg Tab 10 Mg PO HS Propafenone (Propafenone HCl) 150 Mg Tab 150 Mg PO BID Hold if SBP below 110, DBP below 60 or HR below 60 Theophylline ER 12 HR (Theophylline) 200 Mg Tab 200 Mg PO Q12H Ecotrin Low Strength (Aspirin) 81 Mg Tabdr 81 Mg PO DAILY Tamsulosin (Tamsulosin HCl) 0.4 Mg Cap 0.4 Mg PO DAILY Dulera 120 Act Inh (Mometasone-Formoterol 120 Act Inh) 200-5 Mcg/Act Inh 2 Puff INH BID Review of Systems Except as stated in HPI: all other systems reviewed are Neg Physical Exam Narrative GENERAL: Well-developed well-nourished in no obvious distress. SKIN: Focused skin assessment warm/dry. HEAD: Atraumatic. Normocephalic. EYES: Pupils equal and round. No scleral icterus. No injection or drainage. ENT: No nasal bleeding or discharge. Mucous membranes pink and moist. NECK: Trachea midline. No JVD. CARDIOVASCULAR: Regular rate and rhythm. No murmur appreciated. Patient is having intermittent periods of tachycardia particularly when he sits up in stretcher at which time his heart rate climbs as high as 130. RESPIRATORY: No accessory muscle use. Clear to auscultation. Breath sounds equal bilaterally. GASTROINTESTINAL: Abdomen soft, non-tender, nondistended. Hepatic and splenic margins not palpable. MUSCULOSKELETAL: No obvious deformities. No clubbing. No cyanosis. No edema. NEUROLOGICAL: Awake and alert. No obvious cranial nerve deficits. Motor grossly within normal limits. Normal speech. PSYCHIATRIC: Appropriate mood and affect; insight and judgment normal. Data Data Last Documented VS Vital Signs Date Time Temp Pulse Resp B/P (MAP) Pulse Ox O2 Delivery O2 Flow Rate FiO2 07/29/17 15:11 104 16 95 Room Air 07/29/17 15:11 111/68 (82) 07/29/17 10:47 98.1 Orders Orders Electrocardiogram (07/29/17 10:44) Ckmb (Isoenzyme) Profile (07/29/17 10:44) Complete Blood Count With Diff (07/29/17 10:44) Comprehensive Metabolic Panel (07/29/17 10:44) Digoxin (07/29/17 10:44) Magnesium (Mg) (07/29/17 10:44) Prothrombin Time / Inr (Pt) (07/29/17 10:44) Act Partial Throm Time (Ptt) (07/29/17 10:44) Troponin I (07/29/17 10:44) Ecg Monitoring (07/29/17 10:44) Iv Access Insert/Monitor (07/29/17 10:44) Oximetry (07/29/17 10:44) Oxygen Administration (07/29/17 10:44) Sodium Chloride 0.9% Flush (Ns Flush) (07/29/17 10:45) Chest, Single Ap (07/29/17 ) Ct Pulmonary Angiogram (07/29/17 ) Iohexol 350 Inj (Omnipaque 350 Inj) (07/29/17 14:54) Admit Order (Ed Use Only) (07/29/17 ) Heparin Infusion RERE.Q1H (07/29/17 16:18) Cbc No Diff, Includes Plts (08/01/17 06:00) Act Partial Throm Time (Ptt) (07/29/17 23:18) Occult Blood (Hemoccult) Stool (07/29/17 16:18) Labs Laboratory Tests Test 07/29/17 10:45 White Blood Count 11.2 TH/MM3 Red Blood Count 4.35 MIL/MM3 Hemoglobin 12.8 GM/DL Hematocrit 39.8 % Mean Corpuscular Volume 91.5 FL Mean Corpuscular Hemoglobin 29.4 PG Mean Corpuscular Hemoglobin Concent 32.2 % Red Cell Distribution Width 15.8 % Platelet Count 320 TH/MM3 Mean Platelet Volume 8.2 FL Neutrophils (%) (Auto) 84.3 % Lymphocytes (%) (Auto) 5.2 % Monocytes (%) (Auto) 8.9 % Eosinophils (%) (Auto) 1.2 % Basophils (%) (Auto) 0.4 % Neutrophils # (Auto) 9.5 TH/MM3 Lymphocytes # (Auto) 0.6 TH/MM3 Monocytes # (Auto) 1.0 TH/MM3 Eosinophils # (Auto) 0.1 TH/MM3 Basophils # (Auto) 0.0 TH/MM3 CBC Comment AUTO DIFF Differential Total Cells Counted 100 Neutrophils % (Manual) 74 % Band Neutrophils % 1 % Lymphocytes % 13 % Monocytes % 8 % Eosinophils % 1 % Neutrophils # (Manual) 8.7 TH/MM3 Myelocytes 3 % Differential Comment FINAL DIFF MANUAL Platelet Estimate NORMAL Platelet Morphology Comment NORMAL Red Cell Morphology Comment NORMAL Prothrombin Time 10.4 SEC Prothromb Time International Ratio 0.9 RATIO Activated Partial Thromboplast Time 22.6 SEC Blood Urea Nitrogen 4 MG/DL Creatinine 0.69 MG/DL Random Glucose 97 MG/DL Total Protein 5.9 GM/DL Albumin 2.6 GM/DL Calcium Level 8.3 MG/DL Magnesium Level 2.1 MG/DL Alkaline Phosphatase 65 U/L Aspartate Amino Transf (AST/SGOT) 17 U/L Alanine Aminotransferase (ALT/SGPT) 23 U/L Total Bilirubin 0.4 MG/DL Sodium Level 144 MEQ/L Potassium Level 3.6 MEQ/L Chloride Level 109 MEQ/L Carbon Dioxide Level 28.8 MEQ/L Anion Gap 6 MEQ/L Estimat Glomerular Filtration Rate 113 ML/MIN Total Creatine Kinase 22 U/L Troponin I LESS THAN 0.02 NG/ML Digoxin Level 0.6 NG/ML MDM Medical Decision Making Medical Screen Exam Complete: Yes Emergency Medical Condition: Yes Differential Diagnosis PE, dehydration, acute kidney injury, cardiac arrhythmia, digoxin toxicity. Narrative Course Patient roomed emergency department, has been on digoxin for a grand total of 3 days, digoxin level is nearly undetectable. Alternate diagnosis for his tachycardia is PE and CAT scan was obtained which doesn't D show small volume PE. And recommended anticoagulation at this time and the patient is agreeable. Discussed with residents for admission to Dr. Woods. Diagnosis Primary Impression: Pulmonary embolism Qualified Codes: I26.99 - Other pulmonary embolism without acute cor pulmonale Admitting Information Admitting Physician Requests: Admit Condition: Stable Mark Horowitz MD Jul 29, 2017 11:22
[2017-07-29 11:25] LABS: AUTOMATED NEUTROPHIL # 9.5 TH/MM3 (1.8-7.7); BASOPHIL % 0.4 % (0.0-2.0); EOSINOPHIL # 0.1 TH/MM3 (0-0.4); EOSINOPHIL % 1.2 % (0.0-4.0); HEMATOCRIT 39.8 % (39.0-51.0); LYMPH % 5.2 % (9.0-44.0); LYMPHOCYTE # 0.6 TH/MM3 (1.0-4.8); MEAN CELL VOLUME 91.5 FL (80.0-100.0); MEAN CORPUSCULAR HEMOGLOBIN 29.4 PG (27.0-34.0); MEAN CORPUSCULAR HGB CONC 32.2 % (32.0-36.0); MONO % 8.9 % (0.0-8.0); NEUT % 84.3 % (16.0-70.0); PLATELET COUNT 320 TH/MM3 (150-450); RED BLOOD COUNT 4.35 MIL/MM3 (4.50-5.90); RED CELL DISTRIBUTION WIDTH 15.8 % (11.6-17.2); WHITE BLOOD COUNT 11.2 TH/MM3 (4.0-11.0)
[2017-07-29 11:30] LABS: HEMO FLAGS AUTO DIFF
[2017-07-29 11:36] LABS: APTT (PATIENT) 22.6 SEC (24.3-30.1); INTERNATIONAL NORMALIZED RATIO 0.9 RATIO; PROTHROMBIN TIME - PATIENT 10.4 SEC (9.8-11.6)
[2017-07-29] MEDS ORDERED: REME15TA PO (11:39)
[2017-07-29] MEDS ORDERED: TRAZ50TA12 PO (11:39)
[2017-07-29] MEDS ORDERED: MECL-62 PO (11:39)
[2017-07-29] MEDS ORDERED: TYLE325T PO (11:39)
[2017-07-29] MEDS ORDERED: LANO0.12 PO (11:39)
[2017-07-29] MEDS ORDERED: MAGN500T2 PO (11:39)
[2017-07-29] MEDS ORDERED: MULTTAB62 PO (11:39)
[2017-07-29] MEDS ORDERED: DIFFCHW PO (11:39)
[2017-07-29] MEDS ORDERED: PRED5TAB PO (11:39)
[2017-07-29 11:41] LABS: ALT (GPT) 23 U/L (12-78); ANION GAP 6 MEQ/L (5-15); AST (GOT) 17 U/L (15-37); BICARBONATE 28.8 MEQ/L (21.0-32.0); BLOOD UREA NITROGEN 4 MG/DL (7-18); CHLORIDE 109 MEQ/L (98-107); GLOMERULAR FILTRATION RATE 113 ML/MIN (>89); MAGNESIUM 2.1 MG/DL (1.5-2.5); POTASSIUM 3.6 MEQ/L (3.5-5.1); SODIUM (NA) 144 MEQ/L (136-145)
[2017-07-29 11:55] LABS: ALKALINE PHOSPHATASE 65 U/L (45-117); DIGOXIN 0.6 NG/ML (0.8-2.0); TOTAL BILIRUBIN ADULT 0.4 MG/DL (0.2-1.0)
[2017-07-29 11:59] LABS: CREATINE KINASE 22 U/L (39-308)
[2017-07-29 12:10] LABS: BANDS 1 % (0-6); EOSINOPHILS 1 % (0-4); MYELOCYTES 3 % (0-0); NEUTROPHIL # MANUAL DIFF 8.7 TH/MM3 (1.8-7.7); POLYS (SEG NEUTROPHILS) 74 % (16-70); WBC DIFF SAMPLE 100
[2017-07-29 12:13] LABS: PLATELET ESTIMATE SMEAR NORMAL (NORMAL); PLATELET MORPHOLOGY NORMAL (NORMAL); SCAN/DIFF FINAL DIFF MANUAL
--- NOTE | 2017-07-29 13:14 | RADRPT ---
EXAM DATE/TIME: 07/29/2017 11:47 [facility] COMPARISON: CHEST SINGLE AP, June 29, 2017, 4:41. INDICATIONS : Shortness of breath. MEDICAL HISTORY : Asthma. SURGICAL HISTORY : None. ENCOUNTER: Initial ACUITY: 3 days PAIN SCORE: 0/10 LOCATION: Bilateral chest FINDINGS: The heart is normal in size. There are 2 small areas of atelectasis in the left lower lobe. The right lung is clear. The bony structures are grossly intact. CONCLUSION: 1. There are 2 small areas of atelectasis at the left base. The lungs are otherwise clear. Donnie Zimmer MD on July 29, 2017 at 13:04 Board Certified Radiologist. This report was verified electronically.
[2017-07-29] MEDS ORDERED: IOHEXOL 350 MG/ML 10 ML VIAL (for RAD DIAG) IVCONTRAST ONE (14:54)
--- NOTE | 2017-07-29 15:11 | RADRPT ---
EXAM DATE/TIME: 07/29/2017 14:36 [facility] COMPARISON: CT PULMONARY ANGIOGRAM, June 21, 2017, 21:04. INDICATIONS : Abnormal EKG. IV CONTRAST: 71 cc Omnipaque 350 (iohexol) IV RADIATION DOSE: 7.21 CTDIvol (mGy) MEDICAL HISTORY : Chronic obstructive pulmonary disease. SURGICAL HISTORY : None. ENCOUNTER: Initial ACUITY: 1 day PAIN SCALE: 0/10 LOCATION: Bilateral chest TECHNIQUE: Volumetric scanning of the chest was performed using a pulmonary embolism protocol MIP images were re constructed. Using automated exposure control and adjustment of the mA and/or kV according to patien t size, radiation dose was kept as low as reasonably achievable to obtain optimal diagnostic quality images. DICOM format image data is available electronically for review and comparison. Follow-up recommendations for detected pulmonary nodules are based at a minimum on nodule size and pa tient risk factors according to Fleischner Society Guidelines. FINDINGS: There is coronary calcification identified. The elongated area of proximal scarring in the right uppe r lobe at the apex is decreased in prominence today. The more masslike area of elongated soft tissue seen previously in the right upper lobe posteriorly is also decreased in appearance with a linear res idual scar remaining. Linear scarring at the bases identified. There is a small right effusion. There is no adenopathy. There is a filling defect within the right lower lobe pulmonary arterial branches, a new finding from previous study and characteristic of pulmonary embolus. Trace pericardial fluid. There is also minimal thrombus in the right upper lobe branches. CONCLUSION: 1. Pulmonary embolism, right pleural effusion and atelectasis with scattered areas of parenchymal sca rring seen. 2. Trace pericardial effusion. Lane Esquivel MD on July 29, 2017 at 15:07 Board Certified Radiologist. This report was verified electronically.
--- NOTE | 2017-07-29 16:24 | HHI.HP ---
[facility] Service Family Medicine Primary Care Physician Myles Araujo MD Admission Diagnosis Pulmonary Embolism Diagnoses: International Travel<30 Days: No Contact w/Intl Traveler<30days: No Known Affected Area: No History of Present Illness Patient is a 72-year-old man with a history of irregular heartbeat, asthma, COPD , a recent h/o urosepsis and c. diff. who presented to the emergency department with fatigue and shortness of breath after being sent from his rehabilitation facility for tachycardia. Patient presents with his who reported some of the history. Patient was admitted here from June 23 to July 01 for sepsis, UTI and was discharged to a SNF for rehab. Prior to discharge from [facility], patient was walking. Within the first couple of weeks at rehab, he became unable to get out of bed and became wheelchair bound. He was making progress in the last couple weeks, and was able to participate in rehab, but was still wheelchair bound. However, starting last Saturday, he began to experience BALDERAS, which made him feel like he couldn't do rehab. He progressively felt more tired and short of breath. At the rehabilitation facility, they noted that he was tachycardic. They tried to get his pulse down with digoxin. However, his pulse went up, so he was sent here where he was found to have a PE on CTA. Patient denies any history of any prior blood clots. He reports some mild intermittent chest pain that is not concerning him. His also notes severe hand tremors. He couldn't hold fork this morning. This problem started yesterday. He attributes it to working/exercising at rehab. They plan to go back to rehab. (Zane Hollingsworth MD R2) Review of Systems Constitutional: COMPLAINS OF: Weight loss (lost 10 pound since being at rehab) , Chills (occasional), DENIES: Diaphoretic episodes, Fever, Dizziness Endocrine: DENIES: Polydipsia, Polyuria, Polyphagia Eyes: DENIES: Blurred vision, Diplopia, Eye pain, Vision loss, Double Vision Ears, nose, mouth, throat: DENIES: Hearing loss, Throat pain, Ear Pain, Running Nose, Sinus Pain Respiratory: COMPLAINS OF: Shortness of breath, DENIES: Cough, Wheezing, Hemoptysis, Sputum production Cardiovascular: COMPLAINS OF: Chest pain (mild, intermittent), Dyspnea on Exertion, DENIES: Palpitations, Syncope, PND, Lower Extremity Edema, Orthopnea Gastrointestinal: COMPLAINS OF: Diarrhea (yesterday; recent h/o c diff), DENIES : Abdominal pain, Black stools, Bloody stools, Constipation, Nausea, Vomiting Genitourinary: DENIES: Urinary incontinence, Hematuria, Dysuria Musculoskeletal: COMPLAINS OF: Muscle aches, Stiffness, DENIES: Joint pain, Joint Swelling, Back pain, Neck pain Integumentary: DENIES: Pruritus, Rash Hematologic/lymphatic: DENIES: Bruising, Lymphadenopathy Neurologic: COMPLAINS OF: Tremor, DENIES: Headache, Localized weakness, Paresthesias, Speech Problems Psychiatric: DENIES: Anxiety, Mood changes, Depression (Zane Hollingsworth MD R2) Past Family Social History Past Medical History Last admission for urosepsis from June 23 to July 01 Irregular heart beat at times Asthma BPH cataracts 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, 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 Past Surgical History Lung biopsy a few years ago with benign results Cataract surgery Reported Medications Reported Meds & Active Scripts Active Albuterol Neb (Albuterol Sulfate) 2.5 Mg/3 Ml Neb 2.5 Mg NEB Q4HR NEB PRN 30 Days Reported Meclizine (Meclizine HCl) 25 Mg Tab 25 Mg PO Q8HR PRN Tylenol (Acetaminophen) 325 Mg Tab 650 Mg PO Q4H PRN Trazodone (Trazodone HCl) 50 Mg Tab 25 Mg PO HS Multi-Vitamin/Minerals (Multiple Vitamins W/ Minerals) 1 Tab Tab 1 Tab PO DAILY Diff-Stat (Probiotic Product) 471 Mg Cap 1 Cap PO QID 14 Days Remeron (Mirtazapine) 15 Mg Tab 15 Mg PO HS Magnesium Oxide 500 Mg Tab 500 Mg PO DAILY Lanoxin (Digoxin) 125 Mcg Tablet 125 Mcg PO DAILY Hold if A/P below 60 Prednisone 5 Mg Tab 15 Mg PO DAILY Latanoprost Opth Drops (Latanoprost) 0.005% Drops 1 Drop EACH EYE HS Refrigerate until opened. Fludrocortisone (Fludrocortisone Acetate) 0.1 Mg Tab 0.1 Mg PO DAILY Rabeprazole (Rabeprazole Sodium) 20 Mg Tab 20 Mg PO HS Montelukast (Montelukast Sodium) 10 Mg Tab 10 Mg PO HS Propafenone (Propafenone HCl) 150 Mg Tab 150 Mg PO BID Hold if SBP below 110, DBP below 60 or HR below 60 Theophylline ER 12 HR (Theophylline) 200 Mg Tab 200 Mg PO Q12H Ecotrin Low Strength (Aspirin) 81 Mg Tabdr 81 Mg PO DAILY Tamsulosin (Tamsulosin HCl) 0.4 Mg Cap 0.4 Mg PO DAILY Dulera 120 Act Inh (Mometasone-Formoterol 120 Act Inh) 200-5 Mcg/Act Inh 2 Puff INH BID (Zane Hollingsworth MD R2) Allergies: Coded Allergies: No Known Allergies (Verified Allergy, Unknown, 07/29/17) Active Ordered Medications Current Medications Medications (Trade) Dose Ordered Sig/Shelly Route Start Time Stop Time Status Last Admin (NS Flush) 2 ml UNSCH PRN IV FLUSH 07/29/17 17:00 (NS Flush) 2 ml BID IV FLUSH 07/29/17 21:00 (Heparin Inj) 5,000 units UNSCH PRN IV 07/29/17 23:00 (Heparin Inj) 2,500 units UNSCH PRN IV 07/29/17 23:00 (Tylenol) 650 mg Q4H PRN PO 07/29/17 17:15 (Florinef) 0.1 mg DAILY PO 07/30/17 09:00 (Xalatan 0.005% Opth Soln) 1 drop HS EACH EYE 07/29/17 21:00 (Antivert) 25 mg Q8HR PRN PO 07/29/17 17:15 (Remeron) 15 mg HS PO 07/29/17 21:00 (Singulair) 10 mg HS PO 07/29/17 21:00 (Deltasone) 15 mg DAILY PO 07/30/17 09:00 (Rythmol) 150 mg BID PO 07/29/17 21:00 (Protonix) 20 mg HS PO 07/29/17 21:00 (Flomax) 0.4 mg DAILY PO 07/30/17 09:00 (Desyrel) 25 mg HS PO 07/29/17 21:00 (Mag-Ox) 400 mg DAILY PO 07/30/17 09:00 Patient Own Medication PT OWN MED: (Mometasone-Formotero... BID INH 07/29/17 21:00 Future Hold (Theragran M Tab) 1 tab DAILY PO 07/30/17 09:00 (Lactinex) 1 tab QID PO 07/29/17 18:00 Heparin Sodium/ Dextrose 250 ml @ 12 mls/hr TITRATE PRN IV 07/29/17 17:15 07/29/17 17:40 (Duoneb Neb) 1 ampule Q4HR NEB NEB 07/29/17 20:00 (Albuterol Neb) 2.5 mg Q2HR NEB PRN NEB 07/29/17 17:30 Family History Mother at age 68 from heart disease, father at 71 had cancer and from heart disease, however he does not know which kind. Both smoked. Social History Patient denies any tobacco, alcohol or illicit drugs. , live in [place]. Son lives in [place]. was in [employer] department; then did [employer]. was still working 3 days per week. (Zane Hollingsworth MD R2) Physical Exam Vital Signs Vital Signs Date Time Temp Pulse Resp B/P (MAP) Pulse Ox O2 Delivery O2 Flow Rate FiO2 07/29/17 15:11 104 16 95 Room Air 07/29/17 15:11 104 16 111/68 (82) 95 Room Air 07/29/17 13:01 91 16 121/62 (81) 94 Room Air 07/29/17 10:47 98.1 101 17 111/58 (75) 95 Room Air 07/29/17 10:47 101 17 95 Room Air 07/29/17 10:47 95 Room Air 07/29/17 10:47 98.1 101 17 111/58 (75) 95 Room Air 07/29/17 10:41 98.1 101 17 111/58 (75) 95 Physical Exam GENERAL: This is a well-nourished, well-developed elderly patient, in no apparent distress. SKIN: No rashes, ecchymoses or lesions. Cool and dry. HEAD: Atraumatic. Normocephalic. EYES: Small pupils equal round and reactive. Extraocular motions intact. No scleral icterus. No injection or drainage. ENT: Nose without bleeding, purulent drainage or septal hematoma. Throat without erythema, tonsillar hypertrophy or exudate. Uvula midline. Airway patent. NECK: Trachea midline. No JVD or lymphadenopathy. Supple, nontender, no meningeal signs. CARDIOVASCULAR: Regular rate and rhythm without murmurs, gallops, or rubs. RESPIRATORY: Decreased breath sounds on the right. No wheezes, rales, or rhonchi. GASTROINTESTINAL: Hyperactive bowel sounds. Abdomen soft, non-tender, nondistended. No hepato-splenomegaly, or palpable masses. No guarding. MUSCULOSKELETAL: Extremities without clubbing, cyanosis, or edema. No joint tenderness, effusion, or edema noted. No calf tenderness. NEUROLOGICAL: Awake and alert. Cranial nerves II through XII intact. Motor and sensory grossly within normal limits. Normal speech. Tremor noted. Laboratory Laboratory Tests Test 07/29/17 10:45 White Blood Count 11.2 Red Blood Count 4.35 Hemoglobin 12.8 Hematocrit 39.8 Mean Corpuscular Volume 91.5 Mean Corpuscular Hemoglobin 29.4 Mean Corpuscular Hemoglobin Concent 32.2 Red Cell Distribution Width 15.8 Platelet Count 320 Mean Platelet Volume 8.2 Neutrophils (%) (Auto) 84.3 Lymphocytes (%) (Auto) 5.2 Monocytes (%) (Auto) 8.9 Eosinophils (%) (Auto) 1.2 Basophils (%) (Auto) 0.4 Neutrophils # (Auto) 9.5 Lymphocytes # (Auto) 0.6 Monocytes # (Auto) 1.0 Eosinophils # (Auto) 0.1 Basophils # (Auto) 0.0 CBC Comment AUTO DIFF Differential Total Cells Counted 100 Neutrophils % (Manual) 74 Band Neutrophils % 1 Lymphocytes % 13 Monocytes % 8 Eosinophils % 1 Neutrophils # (Manual) 8.7 Myelocytes 3 Differential Comment FINAL DIFF MANUAL Platelet Estimate NORMAL Platelet Morphology Comment NORMAL Red Cell Morphology Comment NORMAL Prothrombin Time 10.4 Prothromb Time International Ratio 0.9 Activated Partial Thromboplast Time 22.6 Blood Urea Nitrogen 4 Creatinine 0.69 Random Glucose 97 Total Protein 5.9 Albumin 2.6 Calcium Level 8.3 Magnesium Level 2.1 Alkaline Phosphatase 65 Aspartate Amino Transf (AST/SGOT) 17 Alanine Aminotransferase (ALT/SGPT) 23 Total Bilirubin 0.4 Sodium Level 144 Potassium Level 3.6 Chloride Level 109 Carbon Dioxide Level 28.8 Anion Gap 6 Estimat Glomerular Filtration Rate 113 Total Creatine Kinase 22 Troponin I LESS THAN 0.02 Digoxin Level 0.6 (Zane Hollingsworth MD R2) Result Diagram: 07/29/17 1045 07/29/17 1045 Imaging Last Impressions Chest X-Ray 07/29/17 0000 Signed Impressions: Service Date/Time: Saturday, July 29, 2017 11:47 - CONCLUSION: 1. There are 2 small areas of atelectasis at the left base. The lungs are otherwise clear. Donnie Zimmer MD CT Angiography 07/29/17 0000 Signed Impressions: Service Date/Time: Saturday, July 29, 2017 14:36 - CONCLUSION: 1. Pulmonary embolism, right pleural effusion and atelectasis with scattered areas of parenchymal scarring seen. 2. Trace pericardial effusion. Lane Esquivel MD Course In the emergency department, patient had oxygen administration, IV insertion, EKG, troponin, a PTT, PT/INR, magnesium, digoxin, CMP, CBC, CK-MB, chest x-ray, CT pulmonary angiogram. (Zane Hollingsworth MD R2) Caprini VTE Risk Assessment Caprini VTE Risk Assessment: Mod/High Risk (score >= 2) Caprini Risk Assessment Model Point Value = 1 Point Value = 2 Point Value = 3 Point Value = 5 Age 41-60 Minor surgery BMI > 25 kg/m2 Swollen legs Varicose veins or History of unexplained or recurrent spontaneous Oral contraceptives or hormone replacement Sepsis (< 1 month) Serious lung disease, including pneumonia (< 1 month) Abnormal pulmonary function Acute myocardial infarction Congestive heart failure (< 1 month) History of inflammatory bowel disease Medical patient at bed rest Age 61-74 Arthroscopic surgery Major open surgery (> 45 min) Laparoscopic surgery (> 45 min) Malignancy Confined to bed (> 72 hours) Immobilizing plaster cast Central venous access Age >= 75 History of VTE Family history of VTE Factor V Leiden Prothrombin [id number] Lupus anticoagulant Anticardiolipin antibodies Elevated serum homocysteine Heparin-induced thrombocytopenia Other congenital or acquired thrombophilia Stroke (< 1 month) Elective arthroplasty Hip, pelvis, or leg fracture Acute spinal cord injury (< 1 month) Prophylaxis Regimen Total Risk Factor Score Risk Level Prophylaxis Regimen 0-1 Low Early ambulation 2 Moderate Order ONE of the following: *Sequential Compression Device (SCD) *Heparin 5000 units SQ BID 3-4 Higher Order ONE of the following medications: *Heparin 5000 units SQ TID *Enoxaparin/Lovenox 40 mg SQ daily (WT < 150 kg, CrCl > 30 mL/min) *Enoxaparin/Lovenox 30 mg SQ daily (WT < 150 kg, CrCl > 10-29 mL/min) *Enoxaparin/Lovenox 30 mg SQ BID (WT < 150 kg, CrCl > 30 mL/min) AND/OR *Sequential Compression Device (SCD) 5 or more Highest Order ONE of the following medications: *Heparin 5000 units SQ TID (Preferred with Epidurals) *Enoxaparin/Lovenox 40 mg SQ daily (WT < 150 kg, CrCl > 30 mL/min) *Enoxaparin/Lovenox 30 mg SQ daily (WT < 150 kg, CrCl > 10-29 mL/min) *Enoxaparin/Lovenox 30 mg SQ BID (WT < 150 kg, CrCl > 30 mL/min) AND *Sequential Compression Device (SCD) (Zane Hollingsworth MD R2) Assessment and Plan Assessment and Plan Patient is a 72-year-old man with a history of irregular heartbeat, asthma, COPD , a recent h/o urosepsis and c. diff. who presented to the emergency department with fatigue and shortness of breath after being sent from his rehabilitation facility for tachycardia. He was found to have a PE on CTA. Plan to admit for IV heparin titration and bridging to oral anticoagulant. Code Status Full code Discussed Condition With Patient discussed with Dr. Woods. (Zane Hollingsworth MD R2) Attending Attestation THIS CASE WAS DISCUSSED WITH THE RESIDENT PHYSICIANS. I HAVE REVIEWED THE RECORD AND AGREE WITH THE ABOVE NOTE AND PLAN OF CARE WAS DISCUSSED. I HAVE AUTHORIZED THE ORDER FOR ADMISSION TO AN IN-PATIENT STATUS. (Roshan Woods MD) Problem List: (1) Pulmonary embolism ICD Codes: I26.99 - Other pulmonary embolism without acute cor pulmonale Status: Acute Plan: -Heparin IV titration protocol -Hemoccult -Bilateral venous Doppler ultrasound of legs -DuoNeb breathing treatments every 4 hours -Albuterol neb every 2 hours when necessary for shortness of breath -Plan to transition to oral anticoagulant, depending on case management and his insurance -Case management consult -school lunch monitor/telemetry -Monitor intake and output -Monitor vital signs -Oxygen as needed -Incentive spirometer -Monitor pulse ox (2) Diarrhea ICD Codes: R19.7 - Diarrhea, unspecified Status: Acute Plan: Patient with recent history of C. difficile reports diarrhea yesterday, but no bowel movements today. -Stool C. difficile PCR -Continue home medication of probiotic (3) Atelectasis ICD Codes: J98.11 - Atelectasis Status: Acute Plan: Atelectasis at left lung base on chest x-ray. -Incentive spirometer (4) Asthma ICD Codes: J45.909 - Unspecified asthma, uncomplicated Status: Chronic Plan: -Continue home medications of albuterol neb, Dulera inhaler (pharmacy to convert), montelukast, few fine wean (5) Irregular heart beat ICD Codes: I49.9 - Cardiac arrhythmia, unspecified Status: Chronic Plan: -Continue home medication of propafenone (6) BPH (benign prostatic hyperplasia) ICD Codes: N40.0 - Benign prostatic hyperplasia without lower urinary tract symptoms Status: Chronic Plan: -Continue home medication of tamsulosin (7) Depression ICD Codes: F32.9 - Major depressive disorder, single episode, unspecified Status: Chronic Plan: -Continue home medication of mirtazapine (8) Insomnia ICD Codes: G47.00 - Insomnia, unspecified Status: Chronic Plan: -Continue home medication of trazodone (9) Glaucoma ICD Codes: H40.9 - Unspecified glaucoma Status: Chronic Plan: -Continue home medication of Latanoprost eyedrops (10) Acid reflux ICD Codes: K21.9 - Gastro-esophageal reflux disease without esophagitis Status: Chronic Plan: -Continue home medication of rabeprazole (11) Hypotension ICD Codes: I95.9 - Hypotension, unspecified Plan: -Continue home medication of fludrocortisone (12) Chronic pain ICD Codes: G89.29 - Other chronic pain Plan: -Continue home medications of Tylenol when necessary and prednisone (13) No contraindication to deep vein thrombosis (DVT) prophylaxis ICD Codes: Z78.9 - Other specified health status Plan: -Heparin IV drip (14) Nutrition, metabolism, and development symptoms ICD Codes: R63.8 - Other symptoms and signs concerning food and fluid intake Plan: Fluids: Patient getting fluids with heparin IV titration, tolerating by mouth intake well Electrolytes: Monitor and replete Nutrition: Regular basic diet (Zane Hollingsworth MD R2) Physician Certification 2 Midnight Certification Type: Admission for Inpatient Services Order for Inpatient Services The services are ordered in accordance with Medicare regulations or non- Medicare payer requirements, as applicable. In the case of services not specified as inpatient-only, they are appropriately provided as inpatient services in accordance with the 2-midnight benchmark. Estimated LOS (days): 2 2 days is the estimated time the patient will need to remain in the hospital, assuming treatment plan goals are met and no additional complications. Post-Hospital Plan: SNF (Zane Hollingsworth MD R2) Problem Qualifiers (1) Pulmonary embolism: Qualified Codes: I26.99 - Other pulmonary embolism without acute cor pulmonale Zane Hollingsworth MD R2 Jul 29, 2017 16:24 Roshan Woods MD Jul 29, 2017 21:04
[2017-07-29] MEDS ORDERED: [UNRECOGNIZED DRUG - OTHER] IV ONE (16:30)
[2017-07-29] MEDS ORDERED: HEPARIN SODIUM - IV 10,000 UNITS/10 ML VIAL IV ONE ×2 (16:30→17:15)
[2017-07-29] MEDS ORDERED: SODIUM CHLORIDE 0.9% FLUSH 10 ML FLUSH IV FLUSH PRN (17:00)
[2017-07-29] MEDS ORDERED: MECLIZINE HCL 25 MG TAB PO PRN (17:15)
[2017-07-29] MEDS ORDERED: ACETAMINOPHEN 325 MG TAB PO PRN (17:15)
[2017-07-29] MEDS ORDERED: HEPARIN-D5W 25,000 U/250 ML 250 ML IV PRN (17:15)
[2017-07-29] MEDS ORDERED: RESP: ALBUTEROL 2.5 MG/3 ML NEB (PRN) NEB ×2 (17:15→17:30)
--- NOTE | 2017-07-29 19:07 | RADRPT ---
EXAM DATE/TIME: 07/29/2017 18:23 [facility] COMPARISON: No previous studies available for comparison. INDICATIONS : Pulmonary embolism. MEDICAL HISTORY : Chronic obstructive pulmonary disease. Benign prostatic hyperplasia, (BPH) Tremors. Anticoagulant th erapy. Chest pain. Irregular heartbeat. C.diff. SURGICAL HISTORY : Bilateral cataract removal. Lung biopsy. ENCOUNTER: Initial ACUITY: 1 day PAIN SCORE: 0/10 LOCATION: Bilateral legs. TECHNIQUE: Venous ultrasound of the left and right leg was performed from the inguinal ligament to the proximal calf. Real-time, color Doppler and spectral tracing, compression and augmentation techniques were us ed. FINDINGS: RIGHT LEG: There is normal compressibility of the deep venous system from the inguinal region to the proximal ca lf. No echogenic clot is seen in the lumen of the common femoral, femoral, popliteal, and posterior tibial veins. There is a normal response of the venous system to proximal and distal augmentation an d respiration. LEFT LEG: There is normal compressibility of the deep venous system from the inguinal region to the proximal ca lf. No echogenic clot is seen in the lumen of the common femoral, femoral, popliteal, and posterior tibial veins. There is a normal response of the venous system to proximal and distal augmentation an d respiration. CONCLUSION: No DVT is identified within either lower extremity. Jose Martinez MD on July 29, 2017 at 19:05 Board Certified Radiologist. This report was verified electronically.
[2017-07-29] MEDS: RESP: ALBUTEROL 2.5 MG/IPRATROPIUM 0.5 MG NEB (SCH) NEB (20:05)
[2017-07-29] MEDS: LACTOBACILLUS ACIDOPHILUS TAB PO SCH ×2 (21:00→21:28)
--- NOTE | 2017-07-29 21:03 | HHI.HP ---
[facility] Service Family Medicine Primary Care Physician Myles Araujo MD Admission Diagnosis Pulmonary Embolism Diagnoses: (1) Pulmonary embolism (2) Diarrhea (3) Atelectasis (4) Asthma (5) Irregular heart beat (6) BPH (benign prostatic hyperplasia) (7) Depression (8) Insomnia (9) Glaucoma (10) Acid reflux (11) Hypotension (12) Chronic pain (13) No contraindication to deep vein thrombosis (DVT) prophylaxis (14) Nutrition, metabolism, and development symptoms International Travel<30 Days: No Contact w/Intl Traveler<30days: No Known Affected Area: No History of Present Illness 72 yo M presenting to the ED with shortness of breath and fatigue from his rehabilitation center and found to have RLL PE. He has a history of an irregular heartbeat and recent with urosepsis complicated by C.dificile infection requiring a stay at a rehabilitation center after discharge from the hospital July 01. Pt. was walking prior to discharge to the rehab center, but has been relatively sedentary while at the rehab center. He has had some progressive weakness and shortness of breath, to the point that he could not participate in the rehab anymore. He was found to be tachycardic and hypertensive, so was started on digoxin without improvement, so he was sent to the ED for further evaluation and was found to have a PE on his CTA. Patient denies any history of any prior blood clots. He reports some mild intermittent chest pain that is not concerning him. His also notes severe hand tremors. He couldn't hold fork this morning. This problem started yesterday. He attributes it to working/exercising at rehab. They plan to go back to rehab. 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 Both smoked. Social History Patient denies any tobacco, alcohol or illicit drugs. , live in [place]. Son lives in [place]. 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 was still working 3 days per week. Physical Exam Vital Signs Vital Signs Date Time Temp Pulse Resp B/P (MAP) Pulse Ox O2 Delivery O2 Flow Rate FiO2 07/29/17 20:20 97.2 85 17 111/71 (84) 96 07/29/17 20:05 98 21 07/29/17 18:42 89 17 109/66 (80) 95 07/29/17 17:10 98 21 07/29/17 15:11 104 16 95 Room Air 07/29/17 15:11 104 16 111/68 (82) 95 Room Air 07/29/17 13:01 91 16 121/62 (81) 94 Room Air 07/29/17 10:47 98.1 101 17 111/58 (75) 95 Room Air 07/29/17 10:47 101 17 95 Room Air 07/29/17 10:47 95 Room Air 07/29/17 10:47 98.1 101 17 111/58 (75) 95 Room Air 07/29/17 10:41 98.1 101 17 111/58 (75) 95 Physical Exam GENERAL: This is a somewhat debilitated, elderly male lying in bed in no obvious distress SKIN:multiple areas of ecchymosis in the upper extremities HEAD: Atraumatic. Normocephalic. EYES: Pupils equal round and reactive. Extraocular motions intact. No scleral icterus. No injection or drainage. CARDIOVASCULAR: Regular rate and rhythm without murmurs, gallops, or rubs. RESPIRATORY: scattered wheezes with decreased breath sounds in the RLL, no obvious rhonchi GASTROINTESTINAL: Abdomen soft, non-tender, nondistended. MUSCULOSKELETAL: Extremities without clubbing, cyanosis, or edema. No joint tenderness, effusion, or edema noted. No calf tenderness. Negative Homans sign bilaterally. NEUROLOGICAL: Awake and alert. Laboratory Laboratory Tests Test 07/29/17 10:45 White Blood Count 11.2 Red Blood Count 4.35 Hemoglobin 12.8 Hematocrit 39.8 Mean Corpuscular Volume 91.5 Mean Corpuscular Hemoglobin 29.4 Mean Corpuscular Hemoglobin Concent 32.2 Red Cell Distribution Width 15.8 Platelet Count 320 Mean Platelet Volume 8.2 Neutrophils (%) (Auto) 84.3 Lymphocytes (%) (Auto) 5.2 Monocytes (%) (Auto) 8.9 Eosinophils (%) (Auto) 1.2 Basophils (%) (Auto) 0.4 Neutrophils # (Auto) 9.5 Lymphocytes # (Auto) 0.6 Monocytes # (Auto) 1.0 Eosinophils # (Auto) 0.1 Basophils # (Auto) 0.0 CBC Comment AUTO DIFF Differential Total Cells Counted 100 Neutrophils % (Manual) 74 Band Neutrophils % 1 Lymphocytes % 13 Monocytes % 8 Eosinophils % 1 Neutrophils # (Manual) 8.7 Myelocytes 3 Differential Comment FINAL DIFF MANUAL Platelet Estimate NORMAL Platelet Morphology Comment NORMAL Red Cell Morphology Comment NORMAL Prothrombin Time 10.4 Prothromb Time International Ratio 0.9 Activated Partial Thromboplast Time 22.6 Blood Urea Nitrogen 4 Creatinine 0.69 Random Glucose 97 Total Protein 5.9 Albumin 2.6 Calcium Level 8.3 Magnesium Level 2.1 Alkaline Phosphatase 65 Aspartate Amino Transf (AST/SGOT) 17 Alanine Aminotransferase (ALT/SGPT) 23 Total Bilirubin 0.4 Sodium Level 144 Potassium Level 3.6 Chloride Level 109 Carbon Dioxide Level 28.8 Anion Gap 6 Estimat Glomerular Filtration Rate 113 Total Creatine Kinase 22 Troponin I LESS THAN 0.02 Digoxin Level 0.6 Result Diagram: 07/29/17 1045 07/29/17 1045 Imaging Last Impressions Chest X-Ray 07/29/17 0000 Signed Impressions: Service Date/Time: Saturday, July 29, 2017 11:47 - CONCLUSION: 1. There are 2 small areas of atelectasis at the left base. The lungs are otherwise clear. Donnie Zimmer MD CT Angiography 07/29/17 0000 Signed Impressions: Service Date/Time: Saturday, July 29, 2017 14:36 - CONCLUSION: 1. Pulmonary embolism, right pleural effusion and atelectasis with scattered areas of parenchymal scarring seen. 2. Trace pericardial effusion. Lane Esquivel MD Caprini VTE Risk Assessment Caprini VTE Risk Assessment: Mod/High Risk (score >= 2) Caprini Risk Assessment Model Point Value = 1 Point Value = 2 Point Value = 3 Point Value = 5 Age 41-60 Minor surgery BMI > 25 kg/m2 Swollen legs Varicose veins or History of unexplained or recurrent spontaneous Oral contraceptives or hormone replacement Sepsis (< 1 month) Serious lung disease, including pneumonia (< 1 month) Abnormal pulmonary function Acute myocardial infarction Congestive heart failure (< 1 month) History of inflammatory bowel disease Medical patient at bed rest Age 61-74 Arthroscopic surgery Major open surgery (> 45 min) Laparoscopic surgery (> 45 min) Malignancy Confined to bed (> 72 hours) Immobilizing plaster cast Central venous access Age >= 75 History of VTE Family history of VTE Factor V Leiden Prothrombin [id number] Lupus anticoagulant Anticardiolipin antibodies Elevated serum homocysteine Heparin-induced thrombocytopenia Other congenital or acquired thrombophilia Stroke (< 1 month) Elective arthroplasty Hip, pelvis, or leg fracture Acute spinal cord injury (< 1 month) Prophylaxis Regimen Total Risk Factor Score Risk Level Prophylaxis Regimen 0-1 Low Early ambulation 2 Moderate Order ONE of the following: *Sequential Compression Device (SCD) *Heparin 5000 units SQ BID 3-4 Higher Order ONE of the following medications: *Heparin 5000 units SQ TID *Enoxaparin/Lovenox 40 mg SQ daily (WT < 150 kg, CrCl > 30 mL/min) *Enoxaparin/Lovenox 30 mg SQ daily (WT < 150 kg, CrCl > 10-29 mL/min) *Enoxaparin/Lovenox 30 mg SQ BID (WT < 150 kg, CrCl > 30 mL/min) AND/OR *Sequential Compression Device (SCD) 5 or more Highest Order ONE of the following medications: *Heparin 5000 units SQ TID (Preferred with Epidurals) *Enoxaparin/Lovenox 40 mg SQ daily (WT < 150 kg, CrCl > 30 mL/min) *Enoxaparin/Lovenox 30 mg SQ daily (WT < 150 kg, CrCl > 10-29 mL/min) *Enoxaparin/Lovenox 30 mg SQ BID (WT < 150 kg, CrCl > 30 mL/min) AND *Sequential Compression Device (SCD) Assessment and Plan Assessment and Plan Patient is a 72-year-old male presenting from a rehab center with progressive SOB and found to have a RLL PE Problem List: (1) Pulmonary embolism ICD Codes: I26.99 - Other pulmonary embolism without acute cor pulmonale Status: Acute Plan: -Heparin IV titration protocol -Hemoccult to evaluate anemia and r/o GI bleed -Bilateral venous Doppler ultrasound of legs -DuoNeb breathing treatments every 4 hours -Albuterol neb every 2 hours when necessary for shortness of breath -Plan to transition to oral anticoagulant, depending on case management and his insurance -Case management consult -sand analyst/telemetry -Monitor intake and output -Monitor vital signs -Oxygen as needed -Incentive spirometer -Monitor pulse ox (2) Diarrhea ICD Codes: R19.7 - Diarrhea, unspecified Status: Acute Plan: Patient with recent history of C. difficile reports diarrhea yesterday, but no bowel movements today. -Stool C. difficile PCR -Continue home medication of probiotic (3) Atelectasis ICD Codes: J98.11 - Atelectasis Status: Acute Plan: Atelectasis at left lung base on chest x-ray. -Incentive spirometer (4) Asthma ICD Codes: J45.909 - Unspecified asthma, uncomplicated Status: Chronic Plan: -Continue home medications of albuterol neb, Dulera inhaler (pharmacy to convert), montelukast, few fine wean (5) Irregular heart beat ICD Codes: I49.9 - Cardiac arrhythmia, unspecified Status: Chronic Plan: -Continue home medication of propafenone (6) BPH (benign prostatic hyperplasia) ICD Codes: N40.0 - Benign prostatic hyperplasia without lower urinary tract symptoms Status: Chronic Plan: -Continue home medication of tamsulosin (7) Depression ICD Codes: F32.9 - Major depressive disorder, single episode, unspecified Status: Chronic Plan: -Continue home medication of mirtazapine (8) Insomnia ICD Codes: G47.00 - Insomnia, unspecified Status: Chronic Plan: -Continue home medication of trazodone (9) Glaucoma ICD Codes: H40.9 - Unspecified glaucoma Status: Chronic Plan: -Continue home medication of Latanoprost eyedrops (10) Acid reflux ICD Codes: K21.9 - Gastro-esophageal reflux disease without esophagitis Status: Chronic Plan: -Continue home medication of rabeprazole (11) Hypotension ICD Codes: I95.9 - Hypotension, unspecified Plan: -Continue home medication of fludrocortisone (12) Chronic pain ICD Codes: G89.29 - Other chronic pain Plan: -Continue home medications of Tylenol when necessary and prednisone (13) No contraindication to deep vein thrombosis (DVT) prophylaxis ICD Codes: Z78.9 - Other specified health status Plan: -Heparin IV drip (14) Nutrition, metabolism, and development symptoms ICD Codes: R63.8 - Other symptoms and signs concerning food and fluid intake Plan: Fluids: Patient getting fluids with heparin IV titration, tolerating by mouth intake well Electrolytes: Monitor and replete Nutrition: Regular basic diet Physician Certification 2 Midnight Certification Type: Admission for Inpatient Services Order for Inpatient Services The services are ordered in accordance with Medicare regulations or non- Medicare payer requirements, as applicable. In the case of services not specified as inpatient-only, they are appropriately provided as inpatient services in accordance with the 2-midnight benchmark. Estimated LOS (days): 2 2 days is the estimated time the patient will need to remain in the hospital, assuming treatment plan goals are met and no additional complications. Post-Hospital Plan: Not yet determined Problem Qualifiers (1) Pulmonary embolism: Qualified Codes: I26.99 - Other pulmonary embolism without acute cor pulmonale Roshan Woods MD Jul 29, 2017 21:03
[2017-07-29] MEDS: PANTOPRAZOLE SOD 20 MG DELAYED RELEASE TAB PO SCH (21:28)
[2017-07-29] MEDS: traZODone HCL 50 MG TAB PO SCH (21:28)
[2017-07-29] MEDS: MIRTAZAPINE 15 MG TAB PO SCH (21:28)
[2017-07-29] MEDS: LATANOPROST 0.005% OPHT SOLN 2.5 ML BTL EACH EYE SCH (21:29)
[2017-07-29] MEDS: SODIUM CHLORIDE 0.9% FLUSH 10 ML FLUSH IV FLUSH SCH (21:29)
[2017-07-29] MEDS: PROPAFENONE HCL 150 MG TAB PO SCH (21:29)
[2017-07-29] MEDS: MONTELUKAST SODIUM 10 MG TAB PO SCH (21:29)
[2017-07-29] MEDS ORDERED: BRIM0.2S4 EACH EYE (21:34)
[2017-07-29] MEDS ORDERED: HEPARIN SODIUM - IV 10,000 UNITS/10 ML VIAL IV PRN (23:00)
[2017-07-29] MEDS ORDERED: HEPARIN - 10,000 UNITS/ML IV ADDITIVE IV PRN (23:00)
[2017-07-30] VITALS (13 sets, daily range): BP systolic 97–144; BP diastolic 54–88; PULSE 68–144; RESP 16–18; TEMP 96.2–98; O2SAT 92–97
[2017-07-30] MEDS: RESP: ALBUTEROL 2.5 MG/IPRATROPIUM 0.5 MG NEB (SCH) NEB ×7 (00:13→23:50)
[2017-07-30 00:28] LABS: APTT (PATIENT) 56.9 SEC (24.3-30.1)
[2017-07-30 06:46] LABS: AUTOMATED NEUTROPHIL # 7.4 TH/MM3 (1.8-7.7); BASOPHIL # 0.1 TH/MM3 (0-0.2); BASOPHIL % 0.7 % (0.0-2.0); EOSINOPHIL # 0.1 TH/MM3 (0-0.4); EOSINOPHIL % 1.1 % (0.0-4.0); HEMATOCRIT 35.5 % (39.0-51.0); LYMPH % 10.9 % (9.0-44.0); MEAN CELL VOLUME 91.3 FL (80.0-100.0); MEAN CORPUSCULAR HEMOGLOBIN 29.9 PG (27.0-34.0); MEAN CORPUSCULAR HGB CONC 32.7 % (32.0-36.0); MONO % 9.8 % (0.0-8.0); NEUT % 77.5 % (16.0-70.0); PLATELET COUNT 316 TH/MM3 (150-450); RED BLOOD COUNT 3.88 MIL/MM3 (4.50-5.90); RED CELL DISTRIBUTION WIDTH 16.1 % (11.6-17.2); WHITE BLOOD COUNT 9.6 TH/MM3 (4.0-11.0)
[2017-07-30 06:48] LABS: HEMO FLAGS AUTO DIFF
[2017-07-30 07:01] LABS: APTT (PATIENT) 49.8 SEC (24.3-30.1)
[2017-07-30 07:23] LABS: ANION GAP 10 MEQ/L (5-15); AST (GOT) 14 U/L (15-37); BICARBONATE 25.4 MEQ/L (21.0-32.0); BLOOD UREA NITROGEN 7 MG/DL (7-18); CHLORIDE 110 MEQ/L (98-107); GLOMERULAR FILTRATION RATE 135 ML/MIN (>89); POTASSIUM 3.5 MEQ/L (3.5-5.1); SODIUM (NA) 145 MEQ/L (136-145)
[2017-07-30 07:28] LABS: ALKALINE PHOSPHATASE 58 U/L (45-117); ALT (GPT) 19 U/L (12-78); TOTAL BILIRUBIN ADULT 0.3 MG/DL (0.2-1.0)
[2017-07-30] MEDS: PATIENT OWN MEDICATION INH SCH ×2 (09:00→21:21)
--- NOTE | 2017-07-30 09:07 | HHI.FPPN ---
Subjective Remarks Pt seen and examined this morning. Patient's present at bedside. He reports not feeling improved. He endorses feeling short of breath. Oxygen saturation has been 95-98% on room air. He endorses feeling as if his heart is beating out of his chest. Pts nurse notes that pts heart rate has been elevated up to the 150s. He denies palpitations prior to coming in to the hospital. He also reports feeling anxious. He was recently started on Rimeron. He has been taking prednisone chronically for over 10 years. This medication is prescribed by his drug and alcohol counselor. Pt has been experiencing mild intermittent confusion prior to this hospitalization, this was attributed to antibiotic use. Stool sample not yet collected. (Hitesh Moore MD R3) Objective Vitals Vital Signs Date Time Temp Pulse Resp B/P (MAP) Pulse Ox O2 Delivery O2 Flow Rate FiO2 07/30/17 07:32 96 21 07/30/17 04:00 98.0 88 17 109/71 (84) 97 07/30/17 00:00 96.2 104 18 108/74 (85) 95 07/29/17 20:20 97.2 85 17 111/71 (84) 96 07/29/17 20:05 98 21 07/29/17 18:42 89 17 109/66 (80) 95 07/29/17 17:10 98 21 07/29/17 15:11 104 16 95 Room Air 07/29/17 15:11 104 16 111/68 (82) 95 Room Air 07/29/17 13:01 91 16 121/62 (81) 94 Room Air 07/29/17 10:47 98.1 101 17 111/58 (75) 95 Room Air 07/29/17 10:47 101 17 95 Room Air 07/29/17 10:47 95 Room Air 07/29/17 10:47 98.1 101 17 111/58 (75) 95 Room Air 07/29/17 10:41 98.1 101 17 111/58 (75) 95 I/O 07/29/17 07/29/17 07/29/17 07/30/17 07/30/17 07/30/17 07:00 15:00 23:00 07:00 15:00 23:00 Intake Total 160 ml 579 ml Output Total 100 ml Balance 60 ml 579 ml Intake Oral 120 ml 480 ml IV Total 40 ml 99 ml Output Urine Total 100 ml # Voids 4 # Bowel Movements 0 3 (Hitesh Moore MD R3) Result Diagram: 07/30/1753907/30/17 0540 Objective Remarks GENERAL: This is a well-nourished, well-developed elderly patient SKIN: No rashes. Cool and dry. HEAD: Atraumatic. Normocephalic. EYES: Extraocular motions intact. No scleral icterus. No injection or drainage. ENT: Nose without bleeding, purulent drainage. Airway patent. CARDIOVASCULAR: Tachycardic rate, regular rhythm without murmurs, gallops, or rubs. RESPIRATORY: Good air movement, normal work of breathing. Decreased breath sounds oer right lower lung field. No wheezes, rales, or rhonchi. GASTROINTESTINAL: Hyperactive bowel sounds. Abdomen soft, non-tender, nondistended. MUSCULOSKELETAL: Extremities without clubbing, cyanosis, or edema. No joint tenderness, effusion, or edema noted. No calf tenderness. NEUROLOGICAL: Awake and alert. Cranial nerves II through XII intact. Motor and sensory grossly within normal limits. Normal speech. Mild tremor noted. (Hitesh Moore MD R3) A/P Assessment and Plan Patient is a 72-year-old male presenting from a rehab center with progressive SOB and found to have a RLL PE Discharge Planning Anticipate discharge once patient has been transitioned to oral anticoagulation and heart rate is well-controlled. Likely and 1-2 days. (Hitesh Moore MD R3) Attending Attestation Patient examined and case discussed with resident physician I have read the above note and agree with the assessment/plan as discussed with me I was involved in all medical decision making for this patient Roshan Woods M.D. (Roshan Woods MD) Problem List: (1) Pulmonary embolism ICD Codes: I26.99 - Other pulmonary embolism without acute cor pulmonale Status: Acute Plan: -Discontinue heparin drip and start Xarelto 15 mg po BID -Hemoccult to evaluate anemia and r/o GI bleed, sample to be collected -Bilateral venous Doppler ultrasound of lower extremities negative for DVT -Monitor intake and output -Monitor vital signs, including pulse ox -Oxygen as needed -Incentive spirometer Imaging: CTA 07/29 significant for pulmonary embolism. No prior history of PE or DVT. (2) Tachycardia ICD Codes: R00.0 - Tachycardia, unspecified Plan: -EKG ordered -Contributing factors include PE, see plan above, anxiety, see plan below -If heart rate remains elevated consider additional medication such as propranolol -Telemetry Patient noted to have tachycardia up to the 150s, heart rate elevated on exam to the 100s (3) Anxiety ICD Codes: F41.9 - Anxiety disorder, unspecified Plan: Xanax 0.25 mg Q8hrs as needed for anxiety Pt endorses feeling more anxious than usual (4) Diarrhea ICD Codes: R19.7 - Diarrhea, unspecified Status: Acute Plan: -Stool C. difficile PCR, sample to be collected -Continue home medication of probiotic Patient with recent history of C. difficile reports diarrhea yesterday, since admission he has had 3 bowel movements (5) Atelectasis ICD Codes: J98.11 - Atelectasis Status: Acute Plan: Atelectasis at left lung base on chest x-ray. -Incentive spirometer (6) Asthma ICD Codes: J45.909 - Unspecified asthma, uncomplicated Status: Chronic Plan: -Continue home medications: -albuterol neb -montelukast -Prednisone -DuoNeb's every 4 hours (7) BPH (benign prostatic hyperplasia) ICD Codes: N40.0 - Benign prostatic hyperplasia without lower urinary tract symptoms Status: Chronic Plan: -Continue home medication of tamsulosin (8) Depression ICD Codes: F32.9 - Major depressive disorder, single episode, unspecified Status: Chronic Plan: -Continue home medication of mirtazapine (9) Insomnia ICD Codes: G47.00 - Insomnia, unspecified Status: Chronic Plan: -Continue home medication of trazodone (10) Glaucoma ICD Codes: H40.9 - Unspecified glaucoma Status: Chronic Plan: -Continue home medication of Latanoprost eyedrops (11) Acid reflux ICD Codes: K21.9 - Gastro-esophageal reflux disease without esophagitis Status: Chronic Plan: -Continue home medication, converted to formulary medication of Protonix 20 mg po HS (12) Hypotension ICD Codes: I95.9 - Hypotension, unspecified Plan: -Continue home medication of fludrocortisone (13) Chronic pain ICD Codes: G89.29 - Other chronic pain Plan: -Continue home medications of Tylenol when necessary (14) No contraindication to deep vein thrombosis (DVT) prophylaxis ICD Codes: Z78.9 - Other specified health status Plan: -Xarelto, see PE plan above (15) Nutrition, metabolism, and development symptoms ICD Codes: R63.8 - Other symptoms and signs concerning food and fluid intake Plan: Fluids: Pt tolerating PO, no fluids at this time Electrolytes: Monitor and replete Nutrition: Regular basic diet GI PPX: Protonix (Hitesh Moore MD R3) Problem Qualifiers (1) Pulmonary embolism: Qualified Codes: I26.99 - Other pulmonary embolism without acute cor pulmonale Hitesh Moore MD R3 Jul 30, 2017 09:07 Roshan Woods MD Jul 30, 2017 16:34
[2017-07-30] MEDS: LACTOBACILLUS ACIDOPHILUS TAB PO SCH ×4 (09:16→21:21)
[2017-07-30] MEDS: MAGNESIUM OXIDE 400 MG TAB PO SCH (09:16)
[2017-07-30] MEDS: PROPAFENONE HCL 150 MG TAB PO SCH ×2 (09:16→21:20)
[2017-07-30] MEDS: MULTIVITAMINS/MINERALS THERAPEUTIC TAB PO SCH (09:16)
[2017-07-30] MEDS: SODIUM CHLORIDE 0.9% FLUSH 10 ML FLUSH IV FLUSH SCH ×2 (09:17→21:21)
[2017-07-30] MEDS: TAMSULOSIN HCL 0.4 MG CAP PO SCH (09:17)
[2017-07-30] MEDS: predniSONE 5 MG TAB PO SCH (09:17)
[2017-07-30] MEDS: FLUDROCORTISONE ACETATE 0.1 MG TAB PO SCH (09:17)
[2017-07-30 09:31] LABS: EOSINOPHILS 2 % (0-4); MYELOCYTES 1 % (0-0); NEUTROPHIL # MANUAL DIFF 7.8 TH/MM3 (1.8-7.7); PLATELET ESTIMATE SMEAR NORMAL (NORMAL); PLATELET MORPHOLOGY NORMAL (NORMAL); POLYS (SEG NEUTROPHILS) 80 % (16-70); SCAN/DIFF FINAL DIFF MANUAL; WBC DIFF SAMPLE 100
[2017-07-30] MEDS: ALPRAZolam 0.25 MG TAB PO PRN ×2 (10:16→17:26)
[2017-07-30] MEDS: RIVAROXABAN 15 MG TAB PO SCH ×2 (10:17→21:21)
--- NOTE | 2017-07-30 11:55 | EKG ---
Date Performed: 07/29/2017 Time Performed: 10:49:20 PTAGE: 72 years EKG: SINUS TACHYCARDIA WITH OCCASIONAL SUPRAVENTRICULAR PREMATURE COMPLEXES ABNORMAL RHYTHM ECG Compared to prior tracing no significant change PREVIOUS TRACING : 06/30/2017 06.30 DOCTOR: Arturo Jerome Interpretating Date/Time 07/30/2017 11:53:53
[2017-07-30 12:46] LABS: C. DIFF EPI 027 PRESUMPTIVE NEGATIVE (NEGATIVE)
--- NOTE | 2017-07-30 21:18 | HHI.PR ---
Addendum to Inpatient Note Addendum Reason: Additional Documentation Additional Information Resident team paged at 20:04 by nurse. Patient's was concerned that the patient was confused and emotional. After he received Xanax for tachycardia due to anxiety this afternoon, she reports that he was crying, thinking he was gonna and tried calling all his family members. She was requesting that Xanax be stopped. The nurse also reports that his blood pressures were in 80s/ 50s. After repositioning him, his blood pressure increased to 97/59, with pulse of 89. Patient was asleep comfortably in bed. After waking him up, he was able to answer all questions appropriately. He was oriented to person, place, and time. Denies pain, CP, and SOB. VITALS: T: 96.3, P89, R18, 97% on RA GENERAL: sleeping in bed, at bedside EYES: PERRLA. CARDIOVASCULAR: Regular rate and rhythm without murmurs, gallops, or rubs. RESPIRATORY: Breath sounds equal bilaterally. GASTROINTESTINAL: Abdomen soft, non-tender, nondistended. NEUROLOGICAL: Oriented x 3, cranial nerves II-VII intact. Strength 5/5 in extremities. A/P: Mild confusion due to Xanax -Discontinued Xanax -Continue cardiac telemetry -Nurse will paged if any problems overnight Seen/examined/discussed with Dolores Perales MD R1 Jul 30, 2017 21:18
[2017-07-30] MEDS: MIRTAZAPINE 15 MG TAB PO SCH (21:20)
[2017-07-30] MEDS: traZODone HCL 50 MG TAB PO SCH (21:20)
[2017-07-30] MEDS: MONTELUKAST SODIUM 10 MG TAB PO SCH (21:21)
[2017-07-30] MEDS: PANTOPRAZOLE SOD 20 MG DELAYED RELEASE TAB PO SCH (21:21)
[2017-07-30] MEDS: LATANOPROST 0.005% OPHT SOLN 2.5 ML BTL EACH EYE SCH (21:21)
[2017-07-31] VITALS (11 sets, daily range): BP systolic 102–165; BP diastolic 61–89; PULSE 76–90; RESP 16–20; TEMP 96.9–97.5; O2SAT 91–99
[2017-07-31] MEDS: RESP: ALBUTEROL 2.5 MG/IPRATROPIUM 0.5 MG NEB (SCH) NEB ×6 (02:50→23:57)
[2017-07-31 06:57] LABS: APTT (PATIENT) 28.5 SEC (24.3-30.1)
[2017-07-31 07:10] LABS: HEMATOCRIT 37.9 % (39.0-51.0); MEAN CELL VOLUME 91.6 FL (80.0-100.0); MEAN CORPUSCULAR HEMOGLOBIN 29.3 PG (27.0-34.0); MEAN CORPUSCULAR HGB CONC 31.9 % (32.0-36.0); PLATELET COUNT 325 TH/MM3 (150-450); RED BLOOD COUNT 4.14 MIL/MM3 (4.50-5.90); RED CELL DISTRIBUTION WIDTH 16.2 % (11.6-17.2); REVIEW FLAG FINAL; WHITE BLOOD COUNT 9.3 TH/MM3 (4.0-11.0)
[2017-07-31 07:20] LABS: BICARBONATE 27.3 MEQ/L (21.0-32.0); POTASSIUM 3.7 MEQ/L (3.5-5.1)
[2017-07-31] MEDS: MULTIVITAMINS/MINERALS THERAPEUTIC TAB PO SCH (09:07)
[2017-07-31] MEDS: PROPRANOLOL HCL 20 MG TAB PO SCH ×2 (09:07→20:50)
[2017-07-31] MEDS: TAMSULOSIN HCL 0.4 MG CAP PO SCH (09:07)
[2017-07-31] MEDS: predniSONE 5 MG TAB PO SCH (09:07)
[2017-07-31] MEDS: SODIUM CHLORIDE 0.9% FLUSH 10 ML FLUSH IV FLUSH SCH ×2 (09:08→20:51)
[2017-07-31] MEDS: RIVAROXABAN 15 MG TAB PO SCH ×2 (09:08→20:50)
[2017-07-31] MEDS: LACTOBACILLUS ACIDOPHILUS TAB PO SCH ×4 (09:08→20:50)
[2017-07-31] MEDS: FLUDROCORTISONE ACETATE 0.1 MG TAB PO SCH (09:08)
[2017-07-31] MEDS: MAGNESIUM OXIDE 400 MG TAB PO SCH (09:08)
[2017-07-31] MEDS: PROPAFENONE HCL 150 MG TAB PO SCH ×2 (09:08→20:50)
--- NOTE | 2017-07-31 09:12 | HHI.FPPN ---
Subjective Remarks Overnight, vision had a bad reaction to the Xanax in which he was crying and thought he was dieting and trying to contact relatives. His was very distressed by this. He reports that he feels fine today. However, he does feel tachycardic and palpitations. Patient had some labile blood pressures and tachycardia on tele overnight. Patient denies anxiety now. (Zane Hollingsworth MD R2) Objective Vitals Vital Signs Date Time Temp Pulse Resp B/P (MAP) Pulse Ox O2 Delivery O2 Flow Rate FiO2 07/31/17 08:10 96 21 07/31/17 07:27 96.9 86 18 126/73 (90) 93 07/31/17 04:00 97.0 84 20 124/70 (88) 95 07/31/17 02:25 88 07/31/17 00:00 97.5 76 20 165/89 (114) 99 07/30/17 20:04 96.3 89 18 97/59 (72) 97 07/30/17 20:01 95 07/30/17 17:09 96 07/30/17 16:16 97.8 100 18 98/54 (69) 95 07/30/17 13:13 92 07/30/17 10:35 97.3 104 110/68 (82) 95 07/30/17 10:15 144 07/30/17 09:22 120 I/O 07/30/17 07/30/17 07/30/17 07/31/17 07/31/17 07/31/17 07:00 15:00 23:00 07:00 15:00 23:00 Intake Total 579 ml 600 ml 220 ml 380 ml Output Total 220 ml 400 ml Balance 579 ml 600 ml 0 ml -20 ml Intake Oral 480 ml 600 ml 220 ml 380 ml IV Total 99 ml Output Urine Total 220 ml 400 ml # Voids 4 5 # Bowel Movements 3 1 0 0 (Zane Hollingsworth MD R2) Result Diagram: 07/31/17 0542 07/31/17 0542 Imaging Last Impressions Lower Extremity Ultrasound 07/29/17 0000 Signed Impressions: Service Date/Time: Saturday, July 29, 2017 18:23 - CONCLUSION: No DVT is identified within either lower extremity. Jose Martinez MD Chest X-Ray 07/29/17 0000 Signed Impressions: Service Date/Time: Saturday, July 29, 2017 11:47 - CONCLUSION: 1. There are 2 small areas of atelectasis at the left base. The lungs are otherwise clear. Donnie Zimmer MD CT Angiography 07/29/17 0000 Signed Impressions: Service Date/Time: Saturday, July 29, 2017 14:36 - CONCLUSION: 1. Pulmonary embolism, right pleural effusion and atelectasis with scattered areas of parenchymal scarring seen. 2. Trace pericardial effusion. Lane Esquivel MD Objective Remarks GENERAL: This is a well-nourished, well-developed elderly patient SKIN: No rashes. Cool and dry. HEAD: Atraumatic. Normocephalic. EYES: Extraocular motions intact. No scleral icterus. No injection or drainage. ENT: Nose without bleeding, purulent drainage. Airway patent. CARDIOVASCULAR: borderline tachycardic rate, regular rhythm without murmurs, gallops, or rubs. RESPIRATORY: Good air movement, normal work of breathing. No wheezes, rales, or rhonchi. GASTROINTESTINAL: Abdomen soft, non-tender, nondistended. MUSCULOSKELETAL: Extremities without clubbing, cyanosis, or edema. No joint tenderness, effusion, or edema noted. No calf tenderness. NEUROLOGICAL: Awake and alert. Cranial nerves II through XII intact. Motor and sensory grossly within normal limits. Normal speech. Intention tremor noted. (Zane Hollingsworth MD R2) A/P Assessment and Plan Patient is a 72-year-old male presenting from a rehab center with progressive SOB and found to have a RLL PE Discharge Planning Anticipate discharge once patient has been transitioned to oral anticoagulation and heart rate is well-controlled. Likely today or tomorrow. Patient's reports that they now want to pay for private transport asked to a [place] [facility]. We'll arrange for discharge around their schedule. If that plan falls through, they are amenable to going back to the SNF he came from. (Zane Hollingsworth MD R2) Attending Attestation Pt. examined and case discussed with resident physicians. I have read the above note and agree with the assessment and plan as discussed with me. I was involved in all medical decision making for this patient. Roshan Woods MD (Roshan Woods MD) Problem List: (1) Pulmonary embolism ICD Codes: I26.99 - Other pulmonary embolism without acute cor pulmonale Status: Acute Plan: -Continue Xarelto 15 mg po BID -Hemoccult negative -Bilateral venous Doppler ultrasound of lower extremities negative for DVT -Monitor intake and output -Monitor vital signs, including pulse ox -Oxygen as needed -Incentive spirometer Imaging: CTA 07/29 significant for pulmonary embolism. No prior history of PE or DVT. (2) Tachycardia ICD Codes: R00.0 - Tachycardia, unspecified Plan: Contributing factors include PE. -EKG shows sinus rhythm with pulse in 90s -Start propranolol 20mg po q12h -Telemetry Patient noted to have tachycardia up to the 100s overnight on tele; heart rate on exam under 100 (3) Anxiety ICD Codes: F41.9 - Anxiety disorder, unspecified Plan: -Stop Xanax 0.25 mg Q8hrs as needed for anxiety because of adverse reaction. (4) Diarrhea ICD Codes: R19.7 - Diarrhea, unspecified Status: Acute Plan: -Stool C. difficile PCR negative -Continue home medication of probiotic Patient with recent history of C. difficile reports diarrhea yesterday, since admission he has had 3 bowel movements (5) Atelectasis ICD Codes: J98.11 - Atelectasis Status: Acute Plan: Atelectasis at left lung base on chest x-ray. -Incentive spirometer (6) Asthma ICD Codes: J45.909 - Unspecified asthma, uncomplicated Status: Chronic Plan: -Continue home medications: -albuterol neb -montelukast -Prednisone -DuoNeb's every 4 hours (7) BPH (benign prostatic hyperplasia) ICD Codes: N40.0 - Benign prostatic hyperplasia without lower urinary tract symptoms Status: Chronic Plan: -Continue home medication of tamsulosin (8) Depression ICD Codes: F32.9 - Major depressive disorder, single episode, unspecified Status: Chronic Plan: -Continue home medication of mirtazapine (9) Insomnia ICD Codes: G47.00 - Insomnia, unspecified Status: Chronic Plan: -Continue home medication of trazodone (10) Glaucoma ICD Codes: H40.9 - Unspecified glaucoma Status: Chronic Plan: -Continue home medication of Latanoprost eyedrops (11) Acid reflux ICD Codes: K21.9 - Gastro-esophageal reflux disease without esophagitis Status: Chronic Plan: -Continue home medication, converted to formulary medication of Protonix 20 mg po HS (12) Hypotension ICD Codes: I95.9 - Hypotension, unspecified Plan: -Continue home medication of fludrocortisone (13) Chronic pain ICD Codes: G89.29 - Other chronic pain Plan: -Continue home medications of Tylenol when necessary (14) No contraindication to deep vein thrombosis (DVT) prophylaxis ICD Codes: Z78.9 - Other specified health status Plan: -Xarelto, see PE plan above (15) Nutrition, metabolism, and development symptoms ICD Codes: R63.8 - Other symptoms and signs concerning food and fluid intake Plan: Fluids: Pt tolerating PO, no fluids at this time Electrolytes: Monitor and replete Nutrition: Regular basic diet GI PPX: Protonix (Zane Hollingsworth MD R2) Problem Qualifiers (1) Pulmonary embolism: Qualified Codes: I26.99 - Other pulmonary embolism without acute cor pulmonale Zane Hollingsworth MD R2 Jul 31, 2017 09:11 Roshan Woods MD Jul 31, 2017 21:16
[2017-07-31] MEDS: PATIENT OWN MEDICATION INH SCH ×2 (09:14→20:51)
[2017-07-31] MEDS ORDERED: IPRASOL NEB (13:48)
[2017-07-31] MEDS ORDERED: PROP20TA3 PO (13:48)
[2017-07-31] MEDS ORDERED: XARE15TA PO ×2 (13:48→13:53)
--- NOTE | 2017-07-31 13:50 | HHI.DCPOC ---
Discharge Care Plan Diagnosis: (1) Pulmonary embolism Goals to Promote Your Health * To prevent worsening of your condition and complications, please take Xarelto as prescribed. * To maintain your health at the optimal level, please follow up with your doctor. Directions to Meet Your Goals Take your medications as prescribed Follow your dietary instruction Follow activity as directed Keep your appointments as scheduled Take your immunizations and boosters as scheduled If your symptoms worsen call your PCP, if no PCP go to Urgent Care Center or Emergency Room Smoking is Dangerous to Your Health. Avoid second hand smoke Call the 24-hour hour crisis hotline for domestic abuse at Zane Hollingsworth MD R2 Jul 31, 2017 13:50
[2017-07-31] MEDS ORDERED: XARE20TA PO ×2 (13:53→13:54)
--- NOTE | 2017-07-31 15:43 | EKG ---
Date Performed: 07/30/2017 Time Performed: 11:08:26 PTAGE: 72 years EKG: Sinus rhythm NORMAL ECG PREVIOUS TRACING : 07/29/2017 10.49 Compared to prior tracing no significant change DOCTOR: Simón Nazario Interpretating Date/Time 07/31/2017 15:42:11
[2017-07-31] MEDS: MONTELUKAST SODIUM 10 MG TAB PO SCH (20:50)
[2017-07-31] MEDS: traZODone HCL 50 MG TAB PO SCH (20:50)
[2017-07-31] MEDS: MIRTAZAPINE 15 MG TAB PO SCH (20:50)
[2017-07-31] MEDS: PANTOPRAZOLE SOD 20 MG DELAYED RELEASE TAB PO SCH (20:51)
[2017-07-31] MEDS: LATANOPROST 0.005% OPHT SOLN 2.5 ML BTL EACH EYE SCH (20:51)
[2017-08-01] VITALS: BP 112/67; PULSE 81; RESP 17; TEMP 97; O2SAT 96
[2017-08-01] MEDS: RESP: ALBUTEROL 2.5 MG/IPRATROPIUM 0.5 MG NEB (SCH) NEB ×3 (03:27→11:53)
[2017-08-01 04:00] VITALS: BP 131/72; PULSE 69; RESP 17; TEMP 96.9; O2SAT 98
[2017-08-01 06:28] LABS: HEMATOCRIT 35.7 % (39.0-51.0); MEAN CELL VOLUME 91.3 FL (80.0-100.0); MEAN CORPUSCULAR HEMOGLOBIN 30.1 PG (27.0-34.0); MEAN CORPUSCULAR HGB CONC 32.9 % (32.0-36.0); PLATELET COUNT 288 TH/MM3 (150-450); RED BLOOD COUNT 3.91 MIL/MM3 (4.50-5.90); REVIEW FLAG FINAL; WHITE BLOOD COUNT 9.8 TH/MM3 (4.0-11.0)
[2017-08-01 07:32] VITALS: BP 137/79; PULSE 78; RESP 18; TEMP 96.9; O2SAT 93
[2017-08-01 07:54] VITALS: O2SAT 97
[2017-08-01] MEDS: FLUDROCORTISONE ACETATE 0.1 MG TAB PO SCH (08:26)
[2017-08-01] MEDS: LACTOBACILLUS ACIDOPHILUS TAB PO SCH (08:26)
[2017-08-01] MEDS: MULTIVITAMINS/MINERALS THERAPEUTIC TAB PO SCH (08:26)
[2017-08-01] MEDS: TAMSULOSIN HCL 0.4 MG CAP PO SCH (08:27)
[2017-08-01] MEDS: predniSONE 5 MG TAB PO SCH (08:27)
[2017-08-01] MEDS: PROPRANOLOL HCL 20 MG TAB PO SCH (08:27)
[2017-08-01] MEDS: MAGNESIUM OXIDE 400 MG TAB PO SCH (08:27)
[2017-08-01] MEDS: PROPAFENONE HCL 150 MG TAB PO SCH (08:27)
[2017-08-01] MEDS: RIVAROXABAN 15 MG TAB PO SCH (08:27)
[2017-08-01] MEDS: SODIUM CHLORIDE 0.9% FLUSH 10 ML FLUSH IV FLUSH SCH (08:30)
[2017-08-01] MEDS: PATIENT OWN MEDICATION INH SCH (08:31)
--- NOTE | 2017-08-01 10:16 | HHI.FPPN ---
Subjective Remarks Acute events overnight. Afebrile and vital signs stable overnight. No documented tachycardia overnight. Patient denies any chest pain or any shortness of breath. He reports feeling a little bit of palpitations, but that feeling is better. He does report feeling like he is really thirsty and can't quench his thirst and like he's peeing all the time. His blood glucose has been within normal limits throughout his admission here. He also complains of a dry tongue. His is ready for discharge back to SNF. (Zane Hollingsworth MD R2) Objective Vitals Vital Signs Date Time Temp Pulse Resp B/P (MAP) Pulse Ox O2 Delivery O2 Flow Rate FiO2 08/01/17 07:54 97 21 08/01/17 07:32 96.9 78 18 137/79 (98) 93 08/01/17 04:00 96.9 69 17 131/72 (91) 98 08/01/17 00:00 97.0 81 17 112/67 (82) 96 07/31/17 20:48 86 07/31/17 19:13 91 07/31/17 19:04 97.5 84 16 110/69 (83) 95 07/31/17 18:35 92 07/31/17 16:04 97.1 83 16 106/61 (76) 96 07/31/17 11:28 97.1 90 18 102/62 (75) 95 I/O 07/31/17 07/31/17 07/31/17 08/01/17 08/01/17 08/01/17 07:00 15:00 23:00 07:00 15:00 23:00 Intake Total 380 ml 600 ml 480 ml 480 ml Output Total 400 ml 300 ml 500 ml Balance -20 ml 300 ml -20 ml 480 ml Intake Oral 380 ml 600 ml 480 ml 480 ml Output Urine Total 400 ml 300 ml 500 ml # Voids 3 15 # Bowel Movements 0 0 0 (Zane Hollingsworth MD R2) Result Diagram: 08/01/17 0509 07/31/17 0542 Imaging Last Impressions Lower Extremity Ultrasound 07/29/17 0000 Signed Impressions: Service Date/Time: Saturday, July 29, 2017 18:23 - CONCLUSION: No DVT is identified within either lower extremity. Jose Martinez MD Chest X-Ray 07/29/17 0000 Signed Impressions: Service Date/Time: Saturday, July 29, 2017 11:47 - CONCLUSION: 1. There are 2 small areas of atelectasis at the left base. The lungs are otherwise clear. Donnie Zimmer MD CT Angiography 07/29/17 0000 Signed Impressions: Service Date/Time: Saturday, July 29, 2017 14:36 - CONCLUSION: 1. Pulmonary embolism, right pleural effusion and atelectasis with scattered areas of parenchymal scarring seen. 2. Trace pericardial effusion. Lane Esquivel MD Objective Remarks GENERAL: This is a well-nourished, well-developed elderly patient, lying in bed comfortably. SKIN: No rashes. Cool and dry. HEAD: Atraumatic. Normocephalic. EYES: Extraocular motions intact. No scleral icterus. No injection or drainage. ENT: Dry, red, cracked tongue. Nose without bleeding, purulent drainage. Airway patent. CARDIOVASCULAR: Regular rate and regular rhythm without murmurs, gallops, or rubs. RESPIRATORY: Good air movement, normal work of breathing. No wheezes, rales, or rhonchi. GASTROINTESTINAL: Abdomen soft, non-tender, nondistended. MUSCULOSKELETAL: Extremities without clubbing, cyanosis, or edema. No joint tenderness, effusion, or edema noted. No calf tenderness. NEUROLOGICAL: Awake and alert. Cranial nerves II through XII grossly intact. Motor and sensory grossly within normal limits. Normal speech. Intention tremor not noted today. (Zane Hollingsworth MD R2) A/P Assessment and Plan Patient is a 72-year-old male presenting from a rehab center with progressive SOB and found to have a RLL PE Discharge Planning Anticipate discharge once patient has been transitioned to oral anticoagulation and heart rate is well-controlled. Likely today. Patient's reports that they now plan to go back to the SNF he came from in [place]. (Zane Hollingsworth MD R2) Attending Attestation Pt. examined and case discussed with resident physicians I have read the above note and agree with the assessment/plan as discussed with me I was involved in all medical decision making for this patient Roshan Woods MD (Roshan Woods MD) Problem List: (1) Pulmonary embolism ICD Codes: I26.99 - Other pulmonary embolism without acute cor pulmonale Status: Acute Plan: -Continue Xarelto 15 mg po BID -Hemoccult negative -Monitor intake and output -Monitor vital signs, including pulse ox -Oxygen as needed -Incentive spirometer Imaging: -CTA 07/29 significant for RLL pulmonary embolism. No prior history of PE or DVT. -Bilateral venous Doppler ultrasound of lower extremities negative for DVT on (2) Tachycardia ICD Codes: R00.0 - Tachycardia, unspecified Plan: Contributing factors include PE. -Propranolol 20mg po q12h - heart rate better controlled since starting this medication -Telemetry Imaging: -EKG shows sinus rhythm with pulse in 90s (3) Anxiety ICD Codes: F41.9 - Anxiety disorder, unspecified Plan: -Stop Xanax 0.25 mg Q8hrs as needed for anxiety because of adverse reaction. (4) Diarrhea ICD Codes: R19.7 - Diarrhea, unspecified Status: Acute Plan: -Stool C. difficile PCR negative -Continue home medication of probiotic Patient with recent history of C. difficile had diarrhea the day before admission; since admission he has had 3 bowel movements. (5) Atelectasis ICD Codes: J98.11 - Atelectasis Status: Acute Plan: Atelectasis at left lung base on chest x-ray. -Incentive spirometer (6) Asthma ICD Codes: J45.909 - Unspecified asthma, uncomplicated Status: Chronic Plan: -Continue home medications: -albuterol neb -montelukast -Prednisone -DuoNeb's every 4 hours (7) BPH (benign prostatic hyperplasia) ICD Codes: N40.0 - Benign prostatic hyperplasia without lower urinary tract symptoms Status: Chronic Plan: -Continue home medication of tamsulosin (8) Depression ICD Codes: F32.9 - Major depressive disorder, single episode, unspecified Status: Chronic Plan: -Continue home medication of mirtazapine (9) Insomnia ICD Codes: G47.00 - Insomnia, unspecified Status: Chronic Plan: -Continue home medication of trazodone (10) Glaucoma ICD Codes: H40.9 - Unspecified glaucoma Status: Chronic Plan: -Continue home medication of Latanoprost eyedrops (11) Acid reflux ICD Codes: K21.9 - Gastro-esophageal reflux disease without esophagitis Status: Chronic Plan: -Continue home medication, converted to formulary medication of Protonix 20 mg po HS (12) Hypotension ICD Codes: I95.9 - Hypotension, unspecified Plan: -Continue home medication of fludrocortisone (13) Chronic pain ICD Codes: G89.29 - Other chronic pain Plan: -Continue home medications of Tylenol when necessary (14) Dry tongue ICD Codes: K14.8 - Other diseases of tongue Plan: -continue PO hydration (15) No contraindication to deep vein thrombosis (DVT) prophylaxis ICD Codes: Z78.9 - Other specified health status Plan: -Xarelto, see PE plan above (16) Nutrition, metabolism, and development symptoms ICD Codes: R63.8 - Other symptoms and signs concerning food and fluid intake Plan: Fluids: Pt tolerating PO, no fluids at this time Electrolytes: Monitor and replete Nutrition: Regular basic diet GI PPX: Protonix (Zane Hollingsworth MD R2) Problem Qualifiers (1) Pulmonary embolism: Qualified Codes: I26.99 - Other pulmonary embolism without acute cor pulmonale Zane Hollingsworth MD R2 Aug 01, 2017 10:16 Roshan Woods MD Aug 01, 2017 16:33
[2017-08-01 11:32] VITALS: BP 127/69; PULSE 63; RESP 18; TEMP 96.8; O2SAT 94
--- NOTE | 2017-08-05 10:34 | HHI.DS ---
Discharge Summary Admission Date Jul 29, 2017 at 16:20 Discharge Date: Aug 01, 2017 Admitting Diagnosis Pulmonary Embolism (1) Pulmonary embolism Plan: -Continue Xarelto 15 mg po BID -Hemoccult negative -Monitor intake and output -Monitor vital signs, including pulse ox -Oxygen as needed -Incentive spirometer Imaging: -CTA 07/29 significant for RLL pulmonary embolism. No prior history of PE or DVT. -Bilateral venous Doppler ultrasound of lower extremities negative for DVT on ICD Codes: I26.99 - Other pulmonary embolism without acute cor pulmonale Status: Resolved (2) Tachycardia Plan: Contributing factors include PE. -Propranolol 20mg po q12h - heart rate better controlled since starting this medication -Telemetry Imaging: -EKG shows sinus rhythm with pulse in 90s ICD Codes: R00.0 - Tachycardia, unspecified Status: Resolved (3) Anxiety Plan: -Stop Xanax 0.25 mg Q8hrs as needed for anxiety because of adverse reaction. ICD Codes: F41.9 - Anxiety disorder, unspecified (4) Diarrhea Plan: -Stool C. difficile PCR negative -Continue home medication of probiotic Patient with recent history of C. difficile had diarrhea the day before admission; since admission he has had 3 bowel movements. ICD Codes: R19.7 - Diarrhea, unspecified Status: Acute (5) Atelectasis Plan: Atelectasis at left lung base on chest x-ray. -Incentive spirometer ICD Codes: J98.11 - Atelectasis Status: Acute (6) Asthma Plan: -Continue home medications: -albuterol neb -montelukast -Prednisone -DuoNeb's every 4 hours ICD Codes: J45.909 - Unspecified asthma, uncomplicated Status: Chronic (7) BPH (benign prostatic hyperplasia) Plan: -Continue home medication of tamsulosin ICD Codes: N40.0 - Benign prostatic hyperplasia without lower urinary tract symptoms Status: Chronic (8) Depression Plan: -Continue home medication of mirtazapine ICD Codes: F32.9 - Major depressive disorder, single episode, unspecified Status: Chronic (9) Insomnia Plan: -Continue home medication of trazodone ICD Codes: G47.00 - Insomnia, unspecified Status: Chronic (10) Glaucoma Plan: -Continue home medication of Latanoprost eyedrops ICD Codes: H40.9 - Unspecified glaucoma Status: Chronic (11) Acid reflux Plan: -Continue home medication, converted to formulary medication of Protonix 20 mg po HS ICD Codes: K21.9 - Gastro-esophageal reflux disease without esophagitis Status: Chronic (12) Hypotension Plan: -Continue home medication of fludrocortisone ICD Codes: I95.9 - Hypotension, unspecified Status: Resolved (13) Chronic pain Plan: -Continue home medications of Tylenol when necessary ICD Codes: G89.29 - Other chronic pain Status: Chronic (14) Dry tongue Plan: -continue PO hydration ICD Codes: K14.8 - Other diseases of tongue Status: Acute (15) No contraindication to deep vein thrombosis (DVT) prophylaxis Plan: -Xarelto, see PE plan above ICD Codes: Z78.9 - Other specified health status Status: Chronic (16) Nutrition, metabolism, and development symptoms Plan: Fluids: Pt tolerating PO, no fluids at this time Electrolytes: Monitor and replete Nutrition: Regular basic diet GI PPX: Protonix ICD Codes: R63.8 - Other symptoms and signs concerning food and fluid intake Brief History 72 yo M presenting to the ED with shortness of breath and fatigue from his rehabilitation center and found to have RLL PE. He has a history of an irregular heartbeat and recent with urosepsis complicated by C.dificile infection requiring a stay at a rehabilitation center after discharge from the hospital July 01. Pt. was walking prior to discharge to the rehab center, but has been relatively sedentary while at the rehab center. He has had some progressive weakness and shortness of breath, to the point that he could not participate in the rehab anymore. He was found to be tachycardic and hypertensive, so was started on digoxin without improvement, so he was sent to the ED for further evaluation and was found to have a PE on his CTA. Patient denies any history of any prior blood clots. He reports some mild intermittent chest pain that is not concerning him. His also notes severe hand tremors. He couldn't hold fork this morning. This problem started yesterday. He attributes it to working/exercising at rehab. They plan to go back to rehab. CBC/BMP: 08/01/17 0509 PE at Discharge GENERAL: This is a well-nourished, well-developed elderly patient, lying in bed comfortably. SKIN: No rashes. Cool and dry. HEAD: Atraumatic. Normocephalic. EYES: Extraocular motions intact. No scleral icterus. No injection or drainage. ENT: Dry, red, cracked tongue. Nose without bleeding, purulent drainage. Airway patent. CARDIOVASCULAR: Regular rate and regular rhythm without murmurs, gallops, or rubs. RESPIRATORY: Good air movement, normal work of breathing. No wheezes, rales, or rhonchi. GASTROINTESTINAL: Abdomen soft, non-tender, nondistended. MUSCULOSKELETAL: Extremities without clubbing, cyanosis, or edema. No joint tenderness, effusion, or edema noted. No calf tenderness. NEUROLOGICAL: Awake and alert. Cranial nerves II through XII grossly intact. Motor and sensory grossly within normal limits. Normal speech. Intention tremor not noted today. Pt Condition on Discharge: Good Discharge Disposition: Discharge to SNF Discharge Instructions DIET: Follow Instructions for: As Tolerated, No Restrictions Activities you can perform: Regular-No Restrictions Follow up Referrals: PCP Follow-up - 1 Week New Medications: Rivaroxaban (Xarelto) 20 Mg Tab 20 MG PO DAILY for Blood Clot Prevention for 90 Days, #90 TAB 0 Refills Please take 15mg twice a day for the first 3 weeks (21 days), then take 20mg once a day for 3 months. Ipratropium-Albuterol Neb (Duoneb) 0.5-2.5 Mg/3 Ml Neb 1 AMPULE NEB Q4HR NEB, #30 ML Propranolol (Propranolol) 20 Mg Tab 20 MG PO Q12HR for 30 Days, #60 TAB Rivaroxaban (Xarelto) 15 Mg Tab 15 MG PO BID for 21 Days, #42 TAB 0 Refills Please take twice a day with food for the first 3 weeks (21 days), then take 20mg once a day with food for 3 months. Continued Medications: Acetaminophen (Tylenol) 325 Mg Tab 650 MG PO Q4H PRN for General Discomfort, TAB 0 Refills Albuterol Neb (Albuterol Neb) 2.5 Mg/3 Ml Neb 2.5 MG NEB Q4HR NEB PRN for SHORTNESS OF BREATH for 30 Days, NEBULE Aspirin DR (Ecotrin Low Strength) 81 Mg Tabdr 81 MG PO DAILY, #30 TAB 0 Refills Brimonidine Opth Drops (Brimonidine Opth Drops) 0.2% Soln 1 DROP EACH EYE BID for Intraocular pressure, #1 BOTTLE 0 Refills Fludrocortisone (Fludrocortisone) 0.1 Mg Tab 0.1 MG PO DAILY, #30 TAB 0 Refills Latanoprost Opth Drops (Latanoprost Opth Drops) 0.005% Drops 1 DROP EACH EYE HS for Glaucoma, #2.5 ML 0 Refills Refrigerate until opened. Magnesium Oxide (Magnesium Oxide) 500 Mg Tab 500 MG PO DAILY for Nutritional Supplement, TAB 0 Refills Meclizine (Meclizine) 25 Mg Tab 25 MG PO Q8HR PRN for VERTIGO, TAB 0 Refills Mirtazapine (Remeron) 15 Mg Tab 15 MG PO HS for Depression Control, #30 TAB 0 Refills Mometasone-Formoterol 120 Act Inh (Dulera 120 Act Inh) 200-5 Mcg/Act Inh 2 PUFF INH BID for Asthma Management, #1 INHALER 0 Refills Montelukast (Montelukast) 10 Mg Tab 10 MG PO HS, #30 TAB 0 Refills Multiple Vitamins W/ Minerals (Multi-Vitamin/Minerals) 1 Tab Tab 1 TAB PO DAILY for Nutritional Supplement Prednisone (Prednisone) 5 Mg Tab 15 MG PO DAILY for Inflammation, TAB 0 Refills Probiotic Product (Diff-Stat) 471 Mg Cap 1 CAP PO QID for GI Prophylaxsis for 14 Days Propafenone (Propafenone) 150 Mg Tab 150 MG PO BID for Regulate Heart Beat, #90 TAB 0 Refills Hold if SBP below 110, DBP below 60 or HR below 60 Rabeprazole (Rabeprazole) 20 Mg Tab 20 MG PO HS for Reflux, #30 TAB 0 Refills Tamsulosin (Tamsulosin) 0.4 Mg Cap 0.4 MG PO DAILY for Manage Prostate Problems, #30 CAP 0 Refills Theophylline ER 12 HR (Theophylline ER 12 HR) 200 Mg Tab 200 MG PO Q12H for Asthma Management, #60 TAB 0 Refills Trazodone (Trazodone) 50 Mg Tab 25 MG PO HS for Insomnia, #30 TAB 0 Refills Additional Information Patient is a 72-year-old man with a history of irregular heartbeat, asthma, COPD , a recent h/o urosepsis and c. diff. who presented to the emergency department with fatigue and shortness of breath after being sent from his rehabilitation facility for tachycardia. Here he was found to have a PE on CTA. He was admitted for IV heparin titration and bridging to oral anticoagulant; Xarelto. Tachycardia resolved with propanolol 20 BID. Libby Johnson MD R2 Aug 05, 2017 10:34
== END 2017-08-01 13:37 | DRG 176 ==
LOC: NEPE 10:33 → NEDA 16:20 → N06A 19:47
PROVIDERS: ADMIT Family Medicine; ATTEND Family Medicine
DX: I26.99 Other pulmonary embolism without acute cor pulmonale (principal); I95.9 Hypotension, unspecified; J98.11 Atelectasis; F32.9 Major depressive disorder, single episode, unspecified; R19.7 Diarrhea, unspecified; I49.9 Cardiac arrhythmia, unspecified; N40.0 Benign prostatic hyperplasia without lower urinary tract symptoms; G47.00 Insomnia, unspecified; H40.9 Unspecified glaucoma; K21.9 Gastro-esophageal reflux disease without esophagitis; G89.29 Other chronic pain; J44.9 Chronic obstructive pulmonary disease, unspecified; Z79.52 Long term (current) use of systemic steroids; R00.0 Tachycardia, unspecified; F41.9 Anxiety disorder, unspecified; R41.0 Disorientation, unspecified; T42.4X5A Adverse effect of benzodiazepines, initial encounter; Y92.230 Patient room in hospital as the place of occurrence of the external cause
CPT/HCPCS: 71010; 71275; 80048; 80053; 80162; 82272; 82550; 83735; 84484; 85007; 85027; 85610; 85730; 87493; 93005; 93970; 94150; 94640; 94664; J1644; J7512; Q9967